=== PATIENT | male | born 1970 | race Caucasian/White ===

== ENCOUNTER 2018-08-01 13:24 | Inpatient (IN) ==
[2018-08-01] MEDS ORDERED: ceFAZolin 1 GM VIAL IV ONE (13:46)
--- NOTE | 2018-08-01 14:25 | Emergency Department Note ---
Recheck HPI - General Chief Complaint: Recheck/Abnormal Lab/Rx Stated Complaint: left hand wound, recheck Time Seen by Provider: 08/01/18 13:46 Source: patient Mode of arrival: ambulatory Limitations: no limitations - History of Present Illness HPI Narrative: 48-year-old male presents for recheck of left hand cellulitis and abscess. Onset over a week ago when a tree branch hit him. A friend made him come in yesterday because it was so swollen and red and he had been sleeping all the time and having chills. No nausea, vomiting, or diarrhea. Unknown fever. Does not believe he has had a fever. States the redness is about the same as yesterday. Is still swollen and very painful. Patient is extremely poor historian and appears to have some sort of developmental delay. Yesterday there was a woman who brought him in who voiced an understanding of his care and was going to help him get treatment and do what he needed to do. However today he arrives 5 hours later than he was supposed to. He states he went and picked up his medications but he never took any of his antibiotics yesterday because he just went home and went to sleep. States he does not have a ride or anyone to help him. He never warm pack the affected area or change the dressing as he was instructed to do so. - Related Data Home Medications Medication Instructions Recorded Confirmed Insulin Lispro [HumaLOG] 1 unit SQ DAILY 07/31/18 08/01/18 Previous Rx's Medication Instructions Recorded Cephalexin [Keflex] 500 mg PO QID #40 cap 07/31/18 HYDROcodone/APAP 5/325MG [[place] 1 tab PO Q4HP PRN #10 tab 07/31/18 5-325Mg] Allergies Allergy/AdvReac Type Severity Reaction Status Date / Time morphine Allergy Verified 08/01/18 13:26 Review of Systems All systems ED: reviewed and negative except as stated. Past Medical History - Past Medical History Medical history: Reports: DM (Type II not on insulin; with polyneuropathy.), other (Diabetic peripheral neuropathy. Peptic ulcer disease. Developmental Delay). 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 Right hand) - Social History smoking status: Current every day smoker Alcohol use: Reports: None (Sober 9 years.) Drug use: Reports: none. Denies: marijuana Physical Exam Limitations: no limitations General appearance: anxious, obese Head: atraumatic, normocephalic, normal inspection Eye: Present: normal appearance. Absent: conjunctival injection ENT: mucous membranes moist Chest: Present: symmetric chest wall rise Respiratory: Present: normal lung sounds bilaterally. Absent: respiratory distress, accessory muscle use Cardiovascular: Present: regular rate, normal heart sounds Extremities: Present: normal capillary refill. Absent: normal inspection (Left hand dorsal surface with diffuse edema covering the entire dorsal surface of her Adame carpals. There is a 5.5 cm abscess to the center is slightly boggy. Packing removed. Approximately 20 mils of purulent drainage expelled. Is able to slightly move fingers but is painful related to swelling.) Neurological: Present: alert Psychiatric: Present: anxious Skin: Present: warm, dry, intact, normal color Course Course Narrative: At [address] Schaefer who is on-call for hand surgery. He stated he would consult if needed but he agreed the patient should be admitted and given IV antibiotics and warm pack the affected area several times a day as well as dressing changes. Obviously the patient is unable to care for himself at home and this appears to be due to developmental delay delay and lack of resources but he has been noncompliant with outpatient therapy. Dr. Thao would like us to talk to the hospitalist transport conductor and he will consult if needed. @ [address] Butt who agreed to admit pt if Dr. Schaefer will consult. FIGUEROA is going to have a provider come see him and repack the abscess here in ER prior to his admit. Vital Signs Temperature 97.5 F 08/01/18 13:24 Pulse Rate 83 08/01/18 13:24 Respiratory Rate 18 08/01/18 13:24 Blood Pressure 173/87 08/01/18 13:24 Pulse Oximetry (%) 97 08/01/18 13:24 Temperature 97.5 F 08/01/18 13:24 Pulse Rate 83 08/01/18 13:24 Respiratory Rate 18 08/01/18 13:24 Blood Pressure 173/87 08/01/18 13:24 Pulse Oximetry (%) 97 08/01/18 13:24 Recheck/Abnormal Lab/Rx - Radiology Data Radiology results reviewed: Yes I reviewed the patient's radiology results. Disposition Pt seen by HEALTH SCIENCE SPECIALIST/PA only: Yes Clinical Impression: Abscess, Cellulitis, Non-compliance Disposition: Xfer As Inpt ([facility]) Condition: Fair Referrals: Roderick Santos MD [Primary Care Provider] - Bryson Schaefer MD [Physician] - Time of Disposition: 14:35
[2018-08-01] MEDS ORDERED: HYDROmorphone 2 MG/ML VIAL IV SCH (15:30)
--- NOTE | 2018-08-01 15:40 | Internal Med History&Physical ---
<Carlos Spear - Last Filed: 08/01/18 16:13> Medical - H&P: HPI Patient information: Note initiated : 08/01/18 at 3:36 pm Service Date, if different from initiated Date: [] Patient: Jordan Carpio 48 y/o M admitted on for left hand wound, recheck. Chief Complaint: [] Chief complaint: follow up of left hand laceration History of present illness: Mr. Carpio is a 48 year old M pt presents to the ED with swollen left hand and 10/10 pain for follow up. Pt originally came to the ED yesterday with same complaint and was seen by Annmarie. Pt says that he was loading up tree branches to take to the dump, and a branch cut him across the top of his left hand. Pain worsened and swelling increased over the past week until he eventually came to the ED. He states he was taking "12 pills of ibuprofen a day for the last 5 days". He was brought in to the ED by a female friend, where they drained a lot of purulent fluid and packed the wound. Wound was cultured and came back as staph, but sensitivities will not be available until tomorrow morning. The pt is a poor historian and didn't seem to understand the instructions to take car of his hand. His friend understood and said they would go get the abx's and follow up today the at 9am to have the wound looked at again. He came in today by himself 5 hours later that was told, had not taken his abx's and had not cared for his wound. Dr. Schaefer has been called as a consult and Efrain nino PA came to the ED and repacked his wound. - Constitutional Constitutional: Absent: chills, fever(s), headache(s), night sweats - EENT Eyes: Absent: change in vision (except when his sugars are poorly controlled) Nose, mouth and throat: Absent: neck pain - Cardiovascular Cardiovascular: Absent: chest pain, dyspnea, leg edema, palpatations, pedal edema - Respiratory Respiratory: Present: cough (for the last week). Absent: hemoptysis, excessive phlegm production - Gastrointestinal Gastrointestinal: Absent: change in bowel habits, change in stool character, diarrhea, nausea, vomiting - Genitourinary Genitourinary: Absent: change in urinary stream, urinary hesitancy, urinary urgency - Musculoskeletal Musculoskeletal: Absent: arthralgias, myalgias - Integumentary Integumentary: Present: skin ulcer (dorsal surface of left hand) - Neurological Neurological: Present: paresthesias (toes feel numb). 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 Social history: Pt smokes a few cigarettes every other day for the last 4 years Smoking status: Current some day smoker Have you smoked in the last 12 months: Yes Drug use: other (did meth a week ago and has only done it a few times ever) Alcohol use: sober (for the last 9 years) Medical - H&P: Meds Home Medications Medication Instructions Recorded Confirmed Type Cephalexin [Keflex] 500 mg PO QID #40 cap 07/31/18 08/01/18 Rx HYDROcodone/APAP 5/325MG [[place] 1 tab PO Q4HP PRN #10 tab 07/31/18 08/01/18 Rx 5-325Mg] Insulin Lispro [HumaLOG] 1 unit SQ DAILY 07/31/18 08/01/18 History Insulin Glargine, Human [Lantus] 35 unit SQ DAILY 08/01/18 08/01/18 History Insulin Glargine, Human [Lantus] 45 unit SQ HS 08/01/18 08/01/18 History Allergies Allergy/AdvReac Type Severity Reaction Status Date / Time morphine Allergy Nausea Verified 08/01/18 15:55 Medical - H&P: Exam - Constitutional Vitals: Temp Pulse Resp BP Pulse Ox 97.5 F 83 18 173/87 97 08/01/18 13:24 08/01/18 13:24 08/01/18 13:24 08/01/18 13:24 08/01/18 13:24 General appearance: obese - Eye Eye exam: Present: EOMI, normal appearance, PERRL - Neck Neck exam: Present: tenderness (didn't notice neck pain until asked about it. Hurts to touch chin to chest) - Expanded Neck Exam Neck exam: Absent: carotid bruit - Respiratory Respiratory exam: Present: rhonchi (faint in RLL). Absent: chest wall tenderness, rales, wheezes - Cardiovascular Cardiovascular exam: Present: normal rate and rhythm, RRR. Absent: gallop, rubs , systolic murmur - GI/Abdominal GI/Abdominal exam: Present: normal bowel sounds, soft. Absent: guarding, rebound, tenderness - Expanded GI/Abdominal Exam GI/Abdominal exam: Absent: Butcher's sign - Extremities Exam Extremities exam: Absent: pedal edema - Neurological Exam Neurological exam: Present: alert, oriented X3 - Expanded Neurological Exam Sensory exam: lower extremity light touch: Abnormal Left, lower extremity pin prick: Abnormal Left - Skin Skin exam: Present: erythema (large swollen erythematous area taking up the majority of the back of the left hand) Medical - H&P: Reslt - Labs CBC & Chem 7: 08/01/18 14:15 08/01/18 14:15 Medical - H&P: A/P (1) Abscess Current visit: Yes Status: Acute Pt will be admitted and administered IV cefazolin d/t poor adherence to wound care instructions. Change to vanco if BC's come pack MRSA +. Dr. Schaefer is being consulted for further treatments if necessary. (2) Cellulitis Current visit: Yes Status: Acute IV abx's (3) Diabetes mellitus type 2, uncontrolled, with complications Current visit: No Status: Chronic Pt will be given his insulin while in hospital to manage sugars. <Zeinab Butt R - Last Filed: 08/02/18 07:03> Medical - H&P: HPI Patient information: Note initiated : 08/02/18 at 7:02 am Service Date, if different from initiated Date: [] Patient: Jordan Carpio 48 y/o M admitted on 08/01/18 for left hand wound, recheck. Chief Complaint: [] History of present illness: Mr. Carpio is a 48 year old M Medical - H&P: Exam - Constitutional Vitals: Temp Pulse Resp BP Pulse Ox 98.5 F 77 18 150/85 96 08/02/18 04:00 08/02/18 04:00 08/02/18 04:00 08/02/18 04:00 08/02/18 04:00 Medical - H&P: Reslt - Labs CBC & Chem 7: 08/01/18 14:15 08/01/18 14:15 Labs: Short CBC 08/01/18 Range/Units 14:15 WBC 10.1 (4.5-11.0) K/mcL Hgb 13.5 (13.5-16.5) g/dL Hct 39.3 L (41.0-55.0) % Plt Count 431 (140-440) K/mcL BMP 08/01/18 14:15 Sodium 135 Potassium 4.6 Chloride 98 Carbon Dioxide 23 BUN 12 Creatinine 0.7 Glucose 276 H Calcium 8.5 L Liver Function 08/01/18 Range/Units 14:15 Total Bilirubin < 0.2 (0.0-1.0) mg/dL AST 17 (0-37) U/l ALT 13 (0-40) U/l Alkaline Phosphatase 86 (39-117) U/L Albumin 2.9 L (3.2-5.2) gm/dL Medical - H&P: A/P - Narrative A/P Narrative: SEE SEPARATE H/P by MYSELF
[2018-08-01 15:53] LABS: ALT/SGPT 13 U/l (0-40); Albumin 2.9 gm/dL (3.2-5.2); Albumin/Globulin Ratio 0.8 (1.0-2.3); Alkaline Phosphatase 86 U/L (39-117); Basophils # (Auto) 0.2 K/mcL (0.0-0.3); Basophils % (Auto) 2.1 % (0.0-2.0); Blood Urea Nitrogen 12 mg/dl (6-20); Eosinophils # (Auto) 0.2 K/mcL (0.0-0.7); Eosinophils % (Auto) 1.9 % (0.0-7.0); Granulocytes % (Auto) 61.3 % (38.0-78.0); Lymphocytes # (Auto) 3.1 K/mcL (1.5-4.8); Lymphocytes % (Auto) 30.4 % (15.5-49.0); Mean Cell Volume 83.6 fL (80.0-100.0); Mean Corpuscular HGB Conc 34.4 g/dL (31.0-36.0); Mean Corpuscular Hemoglobin 28.7 pg (26.0-34.0); Monocytes # (Auto) 0.4 K/mcL (0.1-0.9); Monocytes % (Auto) 4.3 % (1.0-12.0); Platelet Count 431 K/mcL (140-440); Red Cell Distribution Width 12.8 % (11.5-14.5)
--- NOTE | 2018-08-01 16:06 | Internal Med History&Physical ---
Medical - H&P: HPI Patient information: Note initiated : 08/01/18 at 3:59 pm Service Date, if different from initiated Date: [] Patient: Jordan Carpio 48 y/o M admitted on for left hand wound, recheck. Chief Complaint: [] History of present illness: Mr. Carpio is a 48 year old M with h/o DM, substance abuse, presents to the ER today for evaluation of his hand. The patient was drowsy on my evaluation, had just received Dilaudid. Most of the history from patient and some from chart review. The patient apparently has history of diabetes, injured his hand a few days ago. He presented yesterday to the emergency room with swelling on his left hand, x-ray done yesterday showed that the patient had significant cellulitis. Abscess on the hand was drained, culture sent, patient was sent home with antibiotics. The patient's caregiver [lady accompanied the patient] vouched to take care of the patient and verbalized understanding of the need for follow-up. On talking with the patient he went home was drowsy and went to sleep. He showed up late for his follow-up appointment today he had not taken his oral antibiotics. He admits to having some chills, but denies any fever. Has some dizziness and a chronic cough. The patient denies any other acute complaints. The most significant symptom he has is pain in the hand. In the emergency room patient is afebrile, hemodynamically stable a bit drowsy after Dilaudid. Labs are pending but labs done yesterday reviewed. It is my understanding that Dr. Hutchison and orthopedic team is going to follow this patient as the patient is being admitted to the hospital on their recommendation. T All systems: reviewed and no additional remarkable complaints except as stated ( as per hpi rest neg) Medical - H&P: PMH Medical history: DM obesity Family history: reviewed and not pertinent Social history: smoker etoh ex, meth user Medical - H&P: Meds Home Medications Medication Instructions Recorded Confirmed Type Cephalexin [Keflex] 500 mg PO QID #40 cap 07/31/18 08/01/18 Rx HYDROcodone/APAP 5/325MG [[place] 1 tab PO Q4HP PRN #10 tab 07/31/18 08/01/18 Rx 5-325Mg] Insulin Lispro [HumaLOG] 1 unit SQ DAILY 07/31/18 08/01/18 History Allergies Allergy/AdvReac Type Severity Reaction Status Date / Time morphine Allergy Nausea Verified 08/01/18 15:55 Medical - H&P: Exam - Constitutional Vitals: Temp Pulse Resp BP Pulse Ox 97.5 F 83 18 173/87 97 08/01/18 13:24 08/01/18 13:24 08/01/18 13:24 08/01/18 13:24 08/01/18 13:24 General appearance: obese Exam: GENERAL: The patient is a well-developed, well-nourished in no apparent distress. Is drowsy but oriented x3. obese VITAL SIGNS: Reviewed and as noted elsewhere. HEENT: Head is normocephalic and atraumatic. Extraocular muscles are intact. Pupils are equal, round, and reactive to light. Nares appeared normal. Mouth appears any without lesions. Mucous membranes are moist. NECK: Normal to inspection, Supple, No lymphadenopathy or thyromegaly. LUNGS: Air entry equal on both sides, no wheezing, crackles or rhonchi noted. No accessory muscles of respiration HEART: Regular rate and rhythm normal, S1 and S2 heard, no Gallop, S3 or Rub Noted, No Gross murmur heard. ABDOMEN: Soft, nontender, and nondistended. Positive bowel sounds. No hepatosplenomegaly was noted. EXTREMITIES: No cyanosis, clubbing, rash, lesions or edema. left hand in dressing. NEUROLOGIC: Cranial nerves II through XII are grossly intact. Motor and Sensory System Grossly Intact PSYCHIATRIC: Normal affect, Normal Mood. Appropriate Behavior. SKIN: No ulceration or wounds noted, No jaundice, No rash noted. Medical - H&P: Reslt - Labs CBC & Chem 7: 08/01/18 14:15 08/01/18 14:15 Labs: Short CBC 08/01/18 Range/Units 14:15 WBC 10.1 (4.5-11.0) K/mcL Hgb 13.5 (13.5-16.5) g/dL Hct 39.3 L (41.0-55.0) % Plt Count 431 (140-440) K/mcL BMP 08/01/18 14:15 Sodium 135 Potassium 4.6 Chloride 98 Carbon Dioxide 23 BUN 12 Creatinine 0.7 Glucose 276 H Calcium 8.5 L Liver Function 08/01/18 Range/Units 14:15 Total Bilirubin < 0.2 (0.0-1.0) mg/dL AST 17 (0-37) U/l ALT 13 (0-40) U/l Alkaline Phosphatase 86 (39-117) U/L Albumin 2.9 L (3.2-5.2) gm/dL Medical - H&P: A/P - Narrative A/P Narrative: A/P Cellulitis of Hand- Failed outpatient treatment due to non compliance, staph in wound culture, will start on IV anceph and IV vanco till cultures are back, switch to orals as soon as possible. Ortho following, ?hand surgery DM- Uncontrolled, start on insulin for now, follow up as outpatient Substance abuse- check utox DVT hep sq Pain control- Oral oxycodone, tylenol and ibuprofen for now FUll code Diabetic Diet.
--- NOTE | 2018-08-01 16:13 | Consultation ---
DATE OF CONSULTATION: 08/01/2018 PRESENTING DIAGNOSIS: Left hand recheck of wound with progressive cellulitis and abscess. HISTORY OF PRESENT ILLNESS: This patient nearly a week ago was hit by a tree branch that caused a dorsal puncture wound of the left hand that has persisted to become infected, developing a cellulitis of which he has been treated in the ED for previously with cephalexin. He was instructed to pack this and to use warm compresses. However, he does have a slight developmental delay and has been noncompliant to the recommendations and presents back to the emergency department for similar complaints including pain, drainage, and increased redness and swelling over the left dorsum of the hand. The patient's current vital signs are he is afebrile at 97.5, pulse is 83, respirations 18, blood pressure 173/87, pulse ox 97% on room air. PAST MEDICAL HISTORY: Remarkable for diabetes. He is a type 2 diabetic with polyneuropathy, not on insulin. He has PUD, slight developmental delay. REVIEW OF SYSTEMS: Denies headaches, fever, sweats, chills, chest pain, syncope, shortness of breath, abdominal pain, nausea, vomiting, and diarrhea. SOCIAL HISTORY: He is a current smoker every day. He denies alcohol use. States he has been sober for 9 years. The patient does have a drug-seeking behavior in the ED the and has presented to the ED several times requesting pain medication; however, he denies other illicit drugs, including marijuana. PHYSICAL EXAMINATION: VITAL SIGNS: As previously mentioned. GENERAL: The patient is awake, alert, oriented x3 but pretty frustrated with the pain he is experiencing in his hand. He reports this pain as 10/10. HEAD: Normocephalic. CHEST: Clear to auscultation. No wheezing, rhonchi or rales. CARDIOVASCULAR: Normal sinus rhythm. No gallops, rubs or murmurs. ABDOMEN: Soft, nontender. EXTREMITIES: The left dorsum of the hand reveals a large swollen hand, 2 to 3+ in swelling and edema with a demarcated erythematous line which has been circumscribed with a permanent marker and dated previously. There is a 5.5 cm abscess with a central opening where there has previously been packing placed. There is a large scab on the surface of the skin measuring about 2.5 cm in an annular fashion. There has been a large copious amount of purulent drainage removed from the wound. SKIN: Otherwise warm, dry, and he has brisk capillary refill throughout his digits. MEDICAL DECISION MAKING: Dr. Schaefer has been consulted previously. He was the on-call hand orthopedic surgeon who spoke with the ED staff and the hospitalist, Dr. Butt, who agreed to admit the patient if we would provide a consultation for this patient and a localized wound packing. PROCEDURAL NOTE: After informed consent under sterile technique, a sterile tray was opened and 1/4-inch iodoform gauze ribbon was sterilely packed firmly into the wound. Approximately 24 inches of this packing material was packed. The patient was very uncomfortable during the procedure, as expected, but did tolerate it. He was to the point where he was writhing in pain. Towards the end of the packing, we did order a 1 mg Dilaudid dose to be given to him IV. ASSESSMENT: Left hand persistent cellulitis, abscess following puncture wound. TREATMENT PLAN: The patient is to be admitted under Hospitalist who will begin IV antibiotic therapy and will contact Dr. Schaefer with updates in regards to any further surgical intervention that may be required. BAP:song Job ID: [id number] Doc ID: [id number] Mark Busch PA-C
[2018-08-01] MEDS ORDERED: DEXTROSE 31 GM ORAL.SUSP PO PRN (16:38)
[2018-08-01] MEDS ORDERED: DEXTROSE 50% 50 ML VIAL IV PRN (16:38)
[2018-08-01] MEDS ORDERED: ONDANSETRON 4 MG/2 ML VIAL IV PRN (16:38)
[2018-08-01] MEDS ORDERED: VANCOMYCIN PER PHARMACY IV SCH (16:38)
[2018-08-01] MEDS: INSULIN LISPRO 1 UNIT/0.01 ML UNIT SQ SCH ×2 (16:46→20:21)
[2018-08-01] MEDS: VANCOMYCIN 1,500 MG in 0.9 % SODIUM CHLORIDE 500 ML IV SCH (18:44)
[2018-08-01] MEDS: oxyCODONE HCL 5 MG TABLET PO PRN ×2 (20:07→23:57)
[2018-08-01] MEDS: HEPARIN 5,000 UNIT/ML VIAL SQ SCH (20:20)
[2018-08-01] MEDS: INSULIN GLARGINE, HUMAN 1 UNIT/0.01 ML SQ SCH (20:21)
[2018-08-01] MEDS: 0.9 % SODIUM CHLORIDE 10 ML SYRINGE IV SCH (20:24)
[2018-08-01] MEDS: ACETAMINOPHEN 325 MG TABLET PO PRN (22:48)
[2018-08-02] MEDS: oxyCODONE HCL 5 MG TABLET PO PRN (04:50)
[2018-08-02] MEDS: ACETAMINOPHEN 325 MG TABLET PO PRN ×2 (04:51→18:10)
[2018-08-02] MEDS: 0.9 % SODIUM CHLORIDE 10 ML SYRINGE IV SCH ×3 (04:51→21:11)
[2018-08-02 05:46] LABS: Amphetamine Screen,Urine SUSPECT POSITIVE (NONDETECTED); Benzodiazepines Screen,Urine NONE DETECTED (NONDETECTED); Cocaine Screen,Urine NONE DETECTED (NONDETECTED); Opiate Screen,Urine NONE DETECTED (NONDETECTED); Oxycodone, Urine Screen SUSPECT POSITIVE (NONDETECTED)
[2018-08-02] MEDS: VANCOMYCIN 1,500 MG in 0.9 % SODIUM CHLORIDE 500 ML IV SCH ×2 (07:14→21:06)
[2018-08-02] MEDS: INSULIN LISPRO 1 UNIT/0.01 ML UNIT SQ SCH ×4 (07:15→21:09)
[2018-08-02] MEDS: IBUPROFEN 600 MG TABLET PO PRN ×2 (07:16→19:11)
[2018-08-02] MEDS: INSULIN GLARGINE, HUMAN 1 UNIT/0.01 ML SQ SCH ×2 (09:30→21:10)
[2018-08-02] MEDS: HEPARIN 5,000 UNIT/ML VIAL SQ SCH ×2 (09:31→21:09)
--- NOTE | 2018-08-02 15:35 | Internal Med Progress Note ---
Medical - PN: Subj Patient information: Note initiated : 08/02/18 at 3:33 pm Service Date, if different from initiated Date: [] Patient: Jordan Carpio a 48 y/o M admitted on 08/01/18 for Left Hand Wound, Recheck/Abscess, Cellulitis. Chief Complaint: [] Interval history: Mr. Carpio is a 48 year old M with h/o DM, substance abuse, presents to the ER today for evaluation of his hand. The patient was drowsy on my evaluation, had just received Dilaudid. Most of the history from patient and some from chart review. The patient apparently has history of diabetes, injured his hand a few days ago. He presented yesterday to the emergency room with swelling on his left hand, x-ray done yesterday showed that the patient had significant cellulitis. Abscess on the hand was drained, culture sent, patient was sent home with antibiotics. The patient's caregiver [lady accompanied the patient] vouched to take care of the patient and verbalized understanding of the need for follow-up. On talking with the patient he went home was drowsy and went to sleep. He showed up late for his follow-up appointment today he had not taken his oral antibiotics. He admits to having some chills, but denies any fever. Has some dizziness and a chronic cough. The patient denies any other acute complaints. The most significant symptom he has is pain in the hand. In the emergency room patient is afebrile, hemodynamically stable a bit drowsy after Dilaudid. Labs are pending but labs done yesterday reviewed. It is my understanding that Dr. Hutchison and orthopedic team is going to follow this patient as the patient is being admitted to the hospital on their recommendation. T 08/02 Patient seen and examined, still has some soreness in his hand but no complaints. Glucose level is better still above target increase Lantus dose to 25 units twice daily. Pain control reasonable with ordered Tylenol and Motrin and as needed oxycodone. Dr. Ashby yet to evaluate, awaiting his evaluation. He will decide on the disposition of the patient Pertinent ROS: Denies headache, dizziness Denies chest pain, palpitations Denies cough or shortness of breath Denies abdominal pain, nausea or vomiting. - Constitutional Vitals: Vital Signs Temp Pulse Resp BP Pulse Ox 97.6 F 70 18 145/75 96 08/02/18 11:34 08/02/18 11:34 08/02/18 11:34 08/02/18 11:34 08/02/18 11:34 Period Temp Pulse Resp BP Sys/Castro Pulse Ox Last 24 Hr 97.4 F-99.6 F 60-98 18-20 126-150/72-86 94-97 Intake and Output 08/02/18 08/02/18 08/02/18 05:59 13:59 21:59 Intake Total 690 / 690 240 / 240 Output Total 625 / 625 Balance 65 / 65 240 / 240 Weight 250 lb Patient Weight 08/03/18 05:59 Weight 250 lb Intake & Output: Intake & Output 08/02/18 08/02/18 08/02/18 05:59 13:59 21:59 Intake Total 690 / 690 240 / 240 Output Total 625 / 625 Balance 65 / 65 240 / 240 Weight 250 lb Intake: Oral 690 / 690 240 / 240 Output: Void Amount 625 / 625 Other: Meal crackers Breakfast Percent of Meal Consumed 100% 100% Feeding Ability Independent Urine Appearance Clear Urine Color Dark Yellow Urine Odor Strong Exam: Constitutional; Afebrile, cooperative, alert, not in distress. Eyes- No icterus, , No periorbital swelling Ears- Ext ear normal, hearing normal to conversation. Neck- Midline trachea, supple Respiratory system: Air Entry equal on both sides, No crackles or wheezing, no rhonchi. CVS- Rate rhythm regular, S1,S2 heard, no gallop, no rub. 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 hand in dressing placed by ortho in ER Medical - PN: Obj Da - Labs CBC & Chem 7: 08/01/18 14:15 08/01/18 14:15 Labs: Abnormal Lab Results 08/01/18 08/01/18 08/01/18 23:30 14:15 14:15 Hct 39.3 L Baso % (Auto) 2.1 H Glucose 276 H Calcium 8.5 L Albumin 2.9 L Albumin/Globulin Ratio 0.8 L Ur Oxycodone Screen Suspect positive A Ur Amphetamines Screen Suspect positive A Meds: Medications Acetaminophen (Tylenol) 650 mg PO Q6HP PRN PRN Reason: PAIN/FEVER > 101 Last Admin: 08/02/18 04:51 Dose: 650 mg Dextrose (Dextrose 50%) 0 ml IV UD PRN PRN Reason: Hypoglycemia Diagnostic Test (Pha) (Accu-Chek) 1 each FS [facility] Last Admin: 08/02/18 12:24 Dose: 1 each Glucose (Insta-Glucose) 15 gm PO PRN PRN PRN Reason: Hypoglycemia Heparin Sodium (Porcine) (Heparin) 5,000 unit SQ Q12 [facility] Last Admin: 08/02/18 09:31 Dose: 5,000 unit Vancomycin HCl 1,500 mg/ (Sodium Chloride) 500 mls @ 333.3 mls/hr IV Q12H [facility] Last Admin: 08/02/18 07:14 Dose: 333.3 mls/hr Ibuprofen (Motrin) 600 mg PO QIDP PRN PRN Reason: PAIN/FEVER > 101 Last Admin: 08/02/18 07:16 Dose: 600 mg Insulin Glargine (Lantus) 20 unit SQ BID [facility] Last Admin: 08/02/18 09:30 Dose: 20 unit Insulin Human Lispro (Humalog) 0 unit SQ [facility]; Protocol Last Admin: 08/02/18 12:23 Dose: 4 unit Ondansetron HCl (Zofran) 4 mg IV Q6HP PRN PRN Reason: Nausea And Vomiting Oxycodone HCl (Roxicodone) 5 mg PO Q4HP PRN PRN Reason: Severe Pain Last Admin: 08/02/18 04:50 Dose: 5 mg Sodium Chloride (Saline Flush) 10 ml IV Q8 [facility] Last Admin: 08/02/18 04:51 Dose: 10 ml Vancomycin HCl (Vancomycin Per Pharmacy) 1 order IV [facility] Medical - PN: A/P - Time Spent With Patient Total time spent is greater than 50% in coordination of care (as documented) at patient's floor/unit and/or counseling patient: - Narrative A/P Narrative: A/P Cellulitis of Hand- IV vanco for now as per ortho recommendations, will switch to oral bactrim at discharge. no sepsis, awaiting evaluation from ortho. DM- Uncontrolled, lantus 25 bid for now ssi insulni Substance abuse- amphetamine positive DVT hep sq Pain control- Oral oxycodone, tylenol and ibuprofen for now FUll code Diabetic Diet. Medical - PN: Qual - VTE Deep Vein Thrombosis/Pulmonary Embolism Present on Admission: No
[2018-08-03] MEDS: ACETAMINOPHEN 325 MG TABLET PO PRN ×3 (00:15→06:47)
[2018-08-03] MEDS: IBUPROFEN 600 MG TABLET PO PRN ×2 (03:06→08:55)
[2018-08-03] MEDS: 0.9 % SODIUM CHLORIDE 10 ML SYRINGE IV SCH (05:33)
[2018-08-03] MEDS: INSULIN LISPRO 1 UNIT/0.01 ML UNIT SQ SCH ×2 (06:50→12:10)
[2018-08-03] MEDS: HEPARIN 5,000 UNIT/ML VIAL SQ SCH (08:54)
[2018-08-03] MEDS: INSULIN GLARGINE, HUMAN 1 UNIT/0.01 ML SQ SCH (08:55)
[2018-08-03] MEDS: VANCOMYCIN 1,500 MG in 0.9 % SODIUM CHLORIDE 500 ML IV SCH (09:47)
--- NOTE | 2018-08-03 11:45 | Discharge Summary ---
Medical - DS: Prov Patient information: Note initiated : 08/03/18 at 11:42 am Service Date, if different from initiated Date: [] Patient: Jordan Carpio 48 y/o M admitted on 08/01/18 for Left Hand Wound, Recheck/Abscess, Cellulitis. Chief Complaint: [] Date of admission: 08/01/18 16:28 Discharge date: 08/03/18 Primary care physician: Roderick Santos Consults: 08/01/18 14:21 Consult to Physician [CONS] Stat Comment: Consulting Provider: Bryson Schaefer Reason For Exam: Physician to Consult 08/01/18 14:30 Consult to Physician [CONS] Stat Comment: Consulting Provider: Zeinab Butt Reason For Exam: Physician to Consult Discharging clinician: Zeinab Butt Medical - DS: Meds - Discharge Medications Prescriptions: Linezolid 600 mg PO BID #20 tab Active and Home Medications: Home Medications Cephalexin [Keflex] 500 mg PO QID #40 cap 07/31/18 [Rx Confirmed 08/01/18 Last Taken Unknown] HYDROcodone/APAP 5/325MG [[place] 5-325Mg] 1 tab PO Q4HP PRN #10 tab 07/31/18 [Rx Confirmed 08/01/18 Last Taken Unknown] Insulin Lispro [HumaLOG] 1 unit SQ DAILY 07/31/18 [History Confirmed 08/01/18 Last Taken Unknown] Insulin Glargine, Human [Lantus] 35 unit SQ DAILY 08/01/18 [History Confirmed Last Taken 07/29/18] Insulin Glargine, Human [Lantus] 45 unit SQ HS 08/01/18 [History Confirmed 08/01 Last Taken 07/29/18] Medical - DS: Hosp Hospital course: Mr. Carpio is a 48 year old M with h/o DM, substance abuse, presents to the ER today for evaluation of his hand. The patient was drowsy on my evaluation, had just received Dilaudid. Most of the history from patient and some from chart review. The patient apparently has history of diabetes, injured his hand a few days ago. He presented yesterday to the emergency room with swelling on his left hand, x-ray done yesterday showed that the patient had significant cellulitis. Abscess on the hand was drained, culture sent, patient was sent home with antibiotics. The patient's caregiver [lady accompanied the patient] vouched to take care of the patient and verbalized understanding of the need for follow-up. On talking with the patient he went home was drowsy and went to sleep. He showed up late for his follow-up appointment today he had not taken his oral antibiotics. He admits to having some chills, but denies any fever. Has some dizziness and a chronic cough. The patient denies any other acute complaints. The most significant symptom he has is pain in the hand. In the emergency room patient is afebrile, hemodynamically stable a bit drowsy after Dilaudid. Labs are pending but labs done yesterday reviewed. It is my understanding that Dr. Ferrara and orthopedic team is going to follow this patient as the patient is being admitted to the hospital on their recommendation. Cellulitis/Abscess of hand- S/p Drainage, no e/o sepsis, localized soft tissue infection, IV vancomycin used responded well, wound culture is growing mrsa. Patient to be discharged on oral linezolid. Case seen by Dr Ferrara, advised wound care help. Wound care did consult with the patient advised dressing changes three times a week. The patient does not qualify for SNF placement, but can come to the hospital for dressing changes. patient is being given help with transportation so that then can come to the dressing change appointments as outpatient. He will follow up with Dr Ferrara in 1 week and Wound are clinic in 2 weeks. The rest of the stay in the hospital is unremarkable, Patient and family has been updated no the plan of care. Discharge diagnosis: Cellulitis/Abscess of hand - Time Spent with Patient Total time spent providing and/or coordinating discharge services: Greater than 30 minutes Medical - DS: Exam - Constitutional Vitals: Vital Signs Temp Pulse Resp BP BP Pulse Ox 08/03/18 08:00 96.8 F L 16 126/68 93 08/03/18 04:00 97.5 F 75 20 120/70 96 08/03/18 00:00 98.5 F 78 18 156/92 94 08/02/18 20:00 98.7 F 88 20 147/83 93 08/02/18 16:00 97.4 F 65 16 152/83 97 Intake and Output 08/02/18 08/03/18 08/03/18 21:59 05:59 13:59 Intake Total 640 / 640 1050 / 1050 200 / 200 Output Total 475 / 475 650 / 650 Balance 165 / 165 400 / 400 200 / 200 Intake: IV 500 / 500 Vancomycin 1,500 mg In Sodium 500 / 500 Chloride 0.9% 500 ml @ 333.3 mls/hr IV Q12H [facility] Rx#: [id number] Oral 640 / 640 550 / 550 200 / 200 Output: Void Amount 475 / 475 650 / 650 # of times incontinent of urine 0 / 0 Other: Meal sandwich & crackers crackers Breakfast Percent of Meal Consumed 100% 100% 50% Feeding Ability Independent Independent Independent Urine Appearance Clear Clear Urine Color Light Catarina Dark Yellow Urine Odor Normal # Voids 2 Weight 254 lb Additional comments: Constitutional; Afebrile, cooperative, alert, not in distress. Eyes- No icterus, , No periorbital swelling Ears- Ext ear normal, hearing normal to conversation. Neck- Midline trachea, supple Respiratory system: Air Entry equal on both sides, No crackles or wheezing, no rhonchi. CVS- Rate rhythm regular, S1,S2 heard, no gallop, no rub. 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 Medical - DS: Data Labs on day of discharge: Labs from last 24 hours 08/03/18 08:16 Vancomycin Trough 11.3 Preliminary micro results at discharge 08/01/18 15:40 Blood Culture - Preliminary Blood 08/01/18 15:35 Blood Culture - Preliminary Blood Medical - DS: A/P - Patient/Caregiver Discharge Instructions Activity: increase activity as tolerated Diet: Consistent Carbohydrate Additional Instructions: Please take linezolid 600mg twice daily for 10 days [facility] come to the [facility] three times a week, Monday, Monday and Monday for dressing changes. Follow up with Wound care clinic, Ms Bowden for evaluation in 1-2 weeks Follow up with Dr Ferrara in 1 week Go to the ER for worsening symptoms, redness, fever chills or any other acute concern. It is very important that you follow up with your dressing changes and take your prescribed antibiotics as not being compliant on your part would lead to loss of limb, and spread of infection. - Follow up Plan Follow up with: Bryson Schaefer MD [Physician] - Roderick Santos MD [Primary Care Provider] - Violeta Bowden ARNP [Nurse Practitioner] - Disposition: Home, Self-Care Prognosis: Fair Rehab Potential: Fair I certify that the patient requires SNF services: No Overall status at discharge: patient is progressing back to baseline Medical - DS: Qual - VTE Deep Vein Thrombosis/Pulmonary Embolism Present on Admission: No
== END 2018-08-03 15:10 | disposition home or self-care (01) | DRG 603 ==
LOC: ED 13:24 → MEDSUR 16:15
PROVIDERS: ADMIT Internal Medicine; ATTEND Internal Medicine
CPT/HCPCS: 87149; 99223; A6199; J0690; J1170; J1644; J1815; J1817; J3370; J7040

== ENCOUNTER 2021-03-14 22:23 | Inpatient (IN) ==
[2021-03-14] MEDS ORDERED: VANCOMYCIN 1,500 MG in 0.9 % SODIUM CHLORIDE 500 ML IV ONE (22:38)
[2021-03-14] MEDS ORDERED: PIPERACILLIN SODIUM/TAZOBACTAM 4.5 GM in DEXTROSE 5% IN WATER 50 ML IV ONE (22:38)
--- NOTE | 2021-03-14 22:44 | Emergency Department Note ---
HPI General Chief complaint: Extremity Injury, Lower Stated complaint: lt hip contusion Time Seen by Provider: 03/14/21 22:31 Source: patient Mode of arrival: wheelchair Limitations: no limitations History of Present Illness HPI Narrative: Narrative: Presents to room T1 for evaluation of left lower extremity pain. The patient reports that he fell approximately 5 days ago and now has pain and swelling. This appears to be more consistent with subcutaneous abscess formation which are now enlarged and draining. The patient denies any fevers. The patient does have diabetes. He denies any distal numbness or tin gling. Review the patient's medical record notes that he did have similar poorly healing wounds on the medial aspect of the leg but these wounds on the lateral aspect tonight are new. Related Data Home Medications Medication Instructions Recorded Confirmed insulin lispro [Humalog U-100 1 unit SQ DAILY 07/31/18 08/08/20 Insulin] Lantus U-100 Insulin 30 unit SQ DAILY 08/01/18 08/08/20 Lantus U-100 Insulin 45 unit SQ HS 08/01/18 07/18/20 gabapentin 100 mg PO TID 08/08/20 08/08/20 liraglutide [Victoza 2-Joseph] 0.6 mg SUBCUT DAILY 08/08/20 08/09/20 ibuprofen 03/14/21 Previous Rx's Medication Instructions Recorded linezolid 600 mg PO BID #20 tab 08/03/18 Allergies Allergy/AdvReac Type Severity Reaction Status Date / Time morphine Allergy Nausea Verified 03/14/21 22:29 Review of Systems ROS ROS Narrative: Narrative: All systems ED: reviewed and negative except as stated. [facility] Narrative Patient History Narrative: Narrative: Medical/Surgical/Family History All Active Problems (Updated 03/15/21 @ 00:42 by Cole Kirkpatrick MD) Eyebrow laceration (Acute) Contusion of periorbital region, left (Acute) Finger laceration (Acute) Cellulitis of left leg (Acute) Abscess of left leg (Acute) Diabetes mellitus out of control (Acute) Obesity due to excess calories (Chronic) Chronic, continuous use of opioids (Chronic) Laceration of index finger of right hand without complication (Acute) Hyperglycemia (Acute) Sciatica, right side (Acute) Diabetes mellitus type 2, uncontrolled, with complications (Chronic) Lumbar radiculopathy (Acute) Lumbosacral disc disease (Acute) Non-compliance (Acute) Medical History (Updated 03/15/21 @ 00:42 by Cole Kirkpatrick MD) Abscess Abscess of left hand Abscess of skin or subcutaneous tissue Abscess, hand Cellulitis Chronic, continuous use of opioids Actually has been off for a number of weeks due to not being able to meet his new doctor; previously see on 10 mg of hydrocodone 3 times daily. This for sciatica/low back pain. (07/18/2020) Dehydration Dental abscess Laceration of index finger of right hand without complication Lumbar radiculopathy, acute Obesity due to excess calories BMI 36.9 (07/18/2020) Social History Smoking Status: Current some day smoker Alcohol Intake Frequency: does not drink (Quit 2007) Substance Use: does not use Exam Narrative Narrative: Narrative: General Limitations: no limitations General appearance: Present alert and in no apparent distress Head Head: Present atraumatic, normocephalic and normal inspection Eye Eye: Present normal appearance and EOMI; Absent conjunctival injection ENT ENT: Present normal exam and mucous membranes moist Neck Neck: Present normal inspection and trachea midline Respiratory Respiratory: Present normal lung sounds bilaterally; Absent respiratory distress Cardiovascular Cardiovascular: Present regular rate, normal rhythm and normal heart sounds Adbominal Abdominal: Present soft; Absent distention, tenderness, guarding and rebound Extremities Extremities: Present normal inspection; Absent tenderness Back Back: Present normal inspection; Absent tenderness Neurological Neurological: Present alert, oriented X3 and CN II-XII intact; Absent motor sensory deficit Psychiatric Psychiatric: Present normal affect and normal mood Skin Skin: Present warm (WNL), dry, rash, erythema and other (There are 2 large areas of induration swelling with central necrosis and draining purulent material. The first is noted to be proximal and more anterior on the thigh near the inguinal region. The second wound which is larger tends to be more lateral in the midportion of the thigh.) Course Vital Signs Vital signs: Vital Signs Temperature 99.9 F H 03/14/21 22:25 Pulse Rate 89 03/14/21 22:25 Respiratory Rate 22 03/14/21 22:25 Blood Pressure 124/64 03/14/21 22:25 Pulse Oximetry (%) 97 03/14/21 22:25 Temperature 99.9 F H 03/14/21 22:25 Pulse Rate 85 03/14/21 23:45 Respiratory Rate 22 03/14/21 22:25 Blood Pressure 126/55 03/14/21 23:45 Pulse Oximetry (%) 95 03/14/21 23:45 MDM MDM Narrative Medical decision making narrative: Narrative: The patient presents for evaluation of left lower extremity pain and swelling. The patient has a history of previous subcutaneous abscesses in the leg. Previously these were on the medial aspect. Now the patient has 2 distinct areas of abscess on the outer portion of the left lower extremity. He denies any fevers but is having significant discomfort. The patient's labs show an elevated white blood cell count at 12.3. Lactic acid level is normal. The patient's renal function is normal. Blood sugar is elevated at 312. X-ray of the left lower extremity shows no evidence of gas in the tissue. The patient was treated with IV antibiotics after blood cultures. I discussed the case with the on-call surgeon, Dr. Oleary. He agrees to consult. Also discussed the case with the admitting hospitalist. Medical Records Medical records reviewed: Yes I reviewed the patient's medical records. Lab Data Lab results reviewed: Yes I reviewed the patient's lab results. Result diagrams: 03/14/21 22:52 03/14/21 22:52 Labs: Lab Results 03/14/21 03/14/21 03/14/21 Range/Units 22:52 22:52 22:52 WBC 12.3 H (4.5-11.0) K/mcL RBC 4.76 (4.50-5.90) M/mcL Hgb 13.1 L (13.5-16.5) g/dL Hct 39.2 L (41.0-55.0) % MCV 82.4 (80.0-100.0) fL MCH 27.5 (26.0-34.0) pg MCHC 33.4 (31.0-36.0) g/dL RDW 13.3 (11.5-14.5) % Plt Count 373 (140-440) K/mcL MPV 9.4 (7.4-10.4) fL Neut % (Auto) 68.9 (38.0-78.0) % Lymph % (Auto) 20.0 (15.0-49.0) % Osborne % (Auto) 9.6 (1.0-12.0) % Eos % (Auto) 1.1 (0.0-7.0) % Baso % (Auto) 0.4 (0.0-2.0) % Lymph # (Auto) 2.45 (1.50-4.80) K/mcL Osborne # (Auto) 1.18 H (0.10-0.90) K/mcL Eos # (Auto) 0.13 (0.00-0.70) K/mcL Baso # (Auto) 0.05 (0.00-0.20) K/mcL Absolute Neutrophils 8.47 H (1.80-8.00) K/mcL VBG Lactic Acid 1.5 (0.5-2.0) mmol/L Sodium 130 L (133-145) mmol/L Potassium 4.3 (3.3-5.1) mmol/L Chloride 97 (96-108) mmol/L Carbon Dioxide 22 (22-30) mmol/L Anion Gap 11.0 (8.0-16.0) BUN 13 (6-20) mg/dL Creatinine 0.7 (0.7-1.2) mg/dL GFR Calculation 108 Glucose 312 H (70-105) mg/dL Calcium 8.3 L (8.6-10.4) mg/dL Total Bilirubin 0.2 (0.1-1.0) mg/dL AST 10 (<40) U/L ALT 11 (<40) U/L Alkaline Phosphatase 101 (39-117) U/L Total Protein 6.7 (5.9-8.4) gm/dL Albumin 2.8 L (3.2-5.2) gm/dL Globulin 3.9 H (2.2-3.7) gm/dL Albumin/Globulin Ratio 0.7 L (1.0-2.3) ED POC Tests ED POC Tests: RANCHO - SARS Antigen Negative Radiology Data Radiology results reviewed: Yes I reviewed the patient's radiology results. Discharge Plan Patient/Caregiver Discharge Instructions Pt seen by E LEARNING DESIGNER/PA only: No Clinical Impression: Abscess of left leg, Diabetes mellitus out of control Patient Disposition: Xfer As Inpt ([facility]) Follow up with: Janine Montez ARNP [Primary Care Provider] - Prescriptions: No Action insulin lispro [Humalog U-100 Insulin] 1 UNIT/0.01 ML solution 1 unit SQ DAILY RF: 0 Lantus U-100 Insulin 1 UNIT/0.01 ML solution 30 unit SQ DAILY RF: 0 Lantus U-100 Insulin 1 UNIT/0.01 ML solution 45 unit SQ HS RF: 0 linezolid 600 MG tablet 600 mg PO BID Qty: 20 RF: 0 gabapentin 100 mg Capsule 100 mg PO TID RF: 0 Victoza 2-Joseph 0.6 mg/0.1 mL (18 mg/3 mL) Pen Injector 0.6 mg SUBCUT DAILY RF: 0 ibuprofen 800 mg RF: 0
[2021-03-14] MEDS: HYDROmorphone 0.5 MG/0.5 ML SYRINGE IV PRN ×2 (22:55→23:45)
[2021-03-14] MEDS ORDERED: DEXTROSE 5% IN WATER 50 ML IV ONE (23:01)
[2021-03-14 23:20] LABS: Basophils # (Auto) 0.05 K/mcL (0.00-0.20); Basophils % (Auto) 0.4 % (0.0-2.0); Eosinophils # (Auto) 0.13 K/mcL (0.00-0.70); Eosinophils % (Auto) 1.1 % (0.0-7.0); Hematocrit 39.2 % (41.0-55.0); Hemoglobin 13.1 g/dL (13.5-16.5); Lymphocytes # (Auto) 2.45 K/mcL (1.50-4.80); Mean Cell Volume 82.4 fL (80.0-100.0); Mean Corpuscular HGB Conc 33.4 g/dL (31.0-36.0); Mean Platelet Volume 9.4 fL (7.4-10.4); Monocytes # (Auto) 1.18 K/mcL (0.10-0.90); Monocytes % (Auto) 9.6 % (1.0-12.0); Neutrophils % (Auto) 68.9 % (38.0-78.0); Platelet Count 373 K/mcL (140-440); RBC 4.76 M/mcL (4.50-5.90); Red Cell Distribution Width 13.3 % (11.5-14.5); WBC 12.3 K/mcL (4.5-11.0)
[2021-03-14 23:35] LABS: ALT/SGPT 11 U/L (<40); AST/SGOT 10 U/L (<40); Albumin 2.8 gm/dL (3.2-5.2); Albumin/Globulin Ratio 0.7 (1.0-2.3); Alkaline Phosphatase 101 U/L (39-117); Bilirubin,Total 0.2 mg/dL (0.1-1.0); Blood Urea Nitrogen 13 mg/dL (6-20); Calcium 8.3 mg/dL (8.6-10.4); Carbon Dioxide 22 mmol/L (22-30); Chloride 97 mmol/L (96-108); Globulin 3.9 gm/dL (2.2-3.7); Glomerular Filtration Rate 108; Glucose 312 mg/dL (70-105)
[2021-03-14] MEDS ORDERED: 0.9 % SODIUM CHLORIDE 500 ML ONE (23:43)
[2021-03-15] MEDS ORDERED: INSULIN REGULAR, HUMAN 1 UNIT/0.01 ML UNIT SQ ONE (00:41)
[2021-03-15] MEDS ORDERED: HYDROmorphone 0.5 MG/0.5 ML SYRINGE IV PRN ×2 (00:52→09:37)
[2021-03-15] MEDS ORDERED: ONDANSETRON 4 MG/2 ML VIAL IV PRN ×5 (00:52→11:42)
[2021-03-15] MEDS: HYDROmorphone 0.5 MG/0.5 ML SYRINGE IV PRN ×4 (01:04→08:48)
[2021-03-15] MEDS: 0.9 % SODIUM CHLORIDE 1,000 ML IV SCH ×3 (01:35→15:28)
[2021-03-15] MEDS ORDERED: HYDROmorphone 0.5 MG/0.5 ML SYRINGE ONE ×4 (02:09→06:37)
--- NOTE | 2021-03-15 06:16 | XRay Report ---
INDICATION: eval abscess, infection TECHNIQUE: AP and lateral left femur COMPARISON: None. FINDINGS: Negative left femur. No femoral fracture. No cortical destruction. No evidence for osteomyelitis There is no soft tissue gas. No radiopaque foreign body. IMPRESSION: Negative left femur Interpreted and Authenticated by: Yahir Ta 03/15/21
[2021-03-15] MEDS ORDERED: VANCOMYCIN PER PHARMACY IV SCH ×3 (08:06→11:42)
--- NOTE | 2021-03-15 08:49 | Internal Med History&Physical ---
HPI History of Present Illness Patient information: Note initiated : 03/15/21 at 8:49 am Service Date, if different from initiated Date: [] Patient: Jordan Carpio 50 y/o M admitted on 03/15/21 for lt hip contusion. Chief Complaint: [left hip pain] History of present illness: Mr. Carpio is a 50 year old M history of methamphetamine use and insulin-dependent type 2 diabetes mellitus, presenting with 1 week history of left lateral hip pain. Patient stated that his last methamphetamine use was a month ago and he smoked it without IV injections. Patient denies any associated injury or trauma. He has been noticing 9 out of 10, constant, burning pain of his left lateral hip with associated skin swelling and lesions. He denies pain anywhere else. He denies systemic symptoms such as fever or chills or general body weakness or lethargy or change in appetite. No alleviating or exacerbating factors. He has not taken any thing [id number] for symptom relief. He decided to come to the ER last night because of the worsening nature of the symptoms. Vital signs within normal limits. Labs significant for leukocytosis with WBC 12.3. Blood sugar elevated to the 300s range. Serum lactic acid normal at 1.5. Urine drug screen pending. Integumentary Integumentary: Present as per HPI and lesions PFSH PFSH All Active Problems (Updated 03/15/21 @ 09:03 by Kenny Ng MD) Anemia, normocytic normochromic (Acute) T2DM (type 2 diabetes mellitus) (Acute) Abscess of left thigh (Acute) Eyebrow laceration (Acute) Contusion of periorbital region, left (Acute) Finger laceration (Acute) Cellulitis of left leg (Acute) Abscess of left leg (Acute) Diabetes mellitus out of control (Acute) Obesity due to excess calories (Chronic) Chronic, continuous use of opioids (Chronic) Laceration of index finger of right hand without complication (Acute) Hyperglycemia (Acute) Sciatica, right side (Acute) Diabetes mellitus type 2, uncontrolled, with complications (Chronic) Lumbar radiculopathy (Acute) Lumbosacral disc disease (Acute) Non-compliance (Acute) Medical History (Updated 03/15/21 @ 09:03 by Kenny Ng MD) Abscess Abscess of left hand Abscess of skin or subcutaneous tissue Abscess, hand Cellulitis Chronic, continuous use of opioids Actually has been off for a number of weeks due to not being able to meet his new doctor; previously see on 10 mg of hydrocodone 3 times daily. This for sciatica/low back pain. (07/18/2020) Dehydration Dental abscess History of MRSA infection Laceration of index finger of right hand without complication Lumbar radiculopathy, acute Obesity due to excess calories BMI 36.9 (07/18/2020) Social History alcohol intake frequency: does not drink (Quit 2007) substance use type: other details: Patient denies methamphetamine use but there is positive drug screen within MEDS/ALLERGIES Home Medications and Allergies Home Medications Medication Instructions Recorded Confirmed Type insulin lispro [Humalog U-100 1 unit SQ DAILY 07/31/18 03/15/21 History Insulin] Lantus U-100 Insulin 30 unit SQ DAILY 08/01/18 03/15/21 History Lantus U-100 Insulin 45 unit SQ HS 08/01/18 03/15/21 History gabapentin 100 mg PO TID 08/08/20 03/15/21 History Allergies Allergy/AdvReac Type Severity Reaction Status Date / Time morphine AdvReac Mild Nausea Verified 03/15/21 07:38 EXAM Constitutional Vitals: Temp Pulse Resp BP Pulse Ox 36.8 C 92 H 22 120/69 95 03/15/21 07:20 03/15/21 07:20 03/15/21 07:20 03/15/21 07:20 03/15/21 07:20 General appearance: cooperative and no acute distress Head Head exam: Present atraumatic and normocephalic Eye Eye exam: Present EOMI and PERRL ENT ENT exam: Present mucous membranes moist, normal exam and normal external ear exam Neck Neck exam: Present normal inspection; Absent lymphadenopathy, tenderness and thyromegaly Respiratory Respiratory exam: Absent accessory muscle use, respiratory distress and wheezes Cardiovascular Cardiovascular exam: Present normal rate and rhythm; Absent JVD GI/Abdominal GI/Abdominal exam: Present normal bowel sounds and soft; Absent organomegaly and tenderness Rectal Rectal exam: Present deferred Extremities Exam Extremities exam: Present full ROM, normal capillary refill and normal inspection; Absent tenderness Neurological Exam Neurological exam: Present alert, CN II-XII intact and oriented X3; Absent motor sensory deficit Psychiatric Psychiatric exam: Present normal affect and normal mood; Absent anxious and depressed Skin Skin exam: Present dry; Absent intact Additional comments: Erythematic rash X2 on left lateral hip, the great of them measuring up to 3 inch across, with central ulcer with pustular formation, and associated tenderness to palpation and swelling DATA Data Completed and Pending Labs: Labs from last 24 hours 03/14/21 03/14/21 03/14/21 22:52 22:52 22:52 WBC 12.3 H RBC 4.76 Hgb 13.1 L Hct 39.2 L MCV 82.4 MCH 27.5 MCHC 33.4 RDW 13.3 Plt Count 373 MPV 9.4 Neut % (Auto) 68.9 Lymph % (Auto) 20.0 [place] % (Auto) 9.6 Eos % (Auto) 1.1 Baso % (Auto) 0.4 Lymph # (Auto) 2.45 [place] # (Auto) 1.18 H Eos # (Auto) 0.13 Baso # (Auto) 0.05 Absolute Neutrophils 8.47 H VBG Lactic Acid 1.5 Sodium 130 L Potassium 4.3 Chloride 97 Carbon Dioxide 22 Anion Gap 11.0 BUN 13 Creatinine 0.7 GFR Calculation 108 Glucose 312 H Calcium 8.3 L Total Bilirubin 0.2 AST 10 ALT 11 Alkaline Phosphatase 101 Total Protein 6.7 Albumin 2.8 L Globulin 3.9 H Albumin/Globulin Ratio 0.7 L A/P Assessment and plan (1) Abscess of left thigh: Status: Acute (2) Cellulitis of left leg: Status: Acute (3) Obesity due to excess calories: Status: Chronic Comment: BMI 36.9 (07/18/2020) Qualifiers: Body mass index: BMI 38.0-38.9 Obesity classification: adult class 2 (BMI 35 - 39.9) Serious obesity comorbidity presence: with serious comorbidity Qualified Code(s): E66.01 - Morbid (severe) obesity due to excess calories; Z68.38 - Body mass index (BMI) 38.0-38.9, adult (4) T2DM (type 2 diabetes mellitus): Status: Acute (5) Anemia, normocytic normochromic: Status: Acute Narrative A/P Narrative: 1. Left hip cellulitis with underlying abscess: Admit to inpatient med surg Consult general surgeon Dr. Oleary for potential I&D with intraoperative wound culture Serial lactic acid Blood culture X2 Tylenol PRN fever Oxycodone 10mg PO q4hr PRN moderate pain Dilaudid 0.5mg IV q2hr PRN severe pain Vancomycin Zosyn Switch antibiotics depending on culture results PT OT evaluation and treatment NPO for now for planned surgery, IV NS@100cc/hr for now 2. T2DM: HgA1c Lantus 30 unit qAM; 45 unit HS Tier 2 SSI Accu Chek q6hr while NPO and AC HS while eating Hypoglycemia protocol NPO for now for planned surgery, IV NS@100cc/hr for now 3. h/o methamphetamine abuse: Urine drug screen 4. anemia, normocytic normochromic: Daily cbc w/ auto diff to trend H/H; transfuse pRBC if hemoglobin <7.0, active bleeding, or symptomatic GI ppx: not currently indicated DVT ppx: SCDs Code status: Full Prognosis: guarded Disposition: inpatient med surg Time Spent With Patient Time: Total time spent is greater than 50% in coordination of care (as documented) at patient's floor/unit and/or counseling patient: Total time spent with greater than 50% in coordination of care (as documented) at patient's floor/unit and/or counseling patient:: 25 - 35 minutes QUALITY VTE Deep Vein Thrombosis/Pulmonary Embolism Present on Admission: No
[2021-03-15] MEDS ORDERED: DEXTROSE 50% 50 ML VIAL IV PRN ×3 (08:50→11:42)
[2021-03-15] MEDS ORDERED: DEXTROSE 31 GM ORAL.SUSP PO PRN ×3 (08:50→11:42)
[2021-03-15] MEDS ORDERED: ACETAMINOPHEN 325 MG TABLET PO PRN (08:54)
[2021-03-15] MEDS ORDERED: traZODone HCL 50 MG TABLET PO PRN (08:54)
--- NOTE | 2021-03-15 08:55 | General Surg History&Physical ---
HPI History of Present Illness Patient information: Note initiated : 03/15/21 at 8:38 am Service Date, if different from initiated Date: [] Patient: Jordan Carpio 50 y/o M admitted on 03/15/21 for lt hip contusion. Chief Complaint: [] Chief complaint: Abscesses left lateral thigh History of present illness: Mr. Carpio is a 50 year old M who was admitted with a very large draining abscesses of left lateral upper thigh. The patient states that he is had developing abscesses at least 2weeks. The become progress ively larger. He presents with a 10 cm x 9 cm more inferior and anterior fluctuant abscess and a 6x5 cm more posterior lateral abscess. He has severe pain. There is extensive cellulitis surrounding both regions. The patient has had multiple abscesses in the past which has grown MRSA corynebacterium, micrococcus, Streptococcus species. He is a diabetic who is quite negligent by history of having uncontrolled diabetes. The patient also has a history of methamphetamine use but states that he has not used any recently. EENT Eyes: Present blurry vision Ears: Present decreased hearing Nose, mouth and throat: Present dental pain Cardiovascular Cardiovascular: Absent chest pain with activity, lightheadedness and palpatations Respiratory Respiratory: Absent dyspnea Gastrointestinal Gastrointestinal: Absent abdominal pain, dysphagia, hematochezia and nausea Musculoskeletal Musculoskeletal: Present arthralgias, myalgias and radiating pain into limb Integumentary Integumentary: Present new lesions, non-healing lesions, skin ulcer and sores Neurological Neurological: Present restless legs; Absent abnormal speech, dizziness and focal weakness Psychiatric Psychiatric: Present anxiety, behavioral changes, depression and irritability Hematologic/Lymphatic Hematologic/Lymphatic: Absent easy bleeding, easy bruising and lymphadenopathy Allergic/Immunologic Allergic/Immunologic: Absent tongue swelling, throat swelling, uticaria, wheezing and lip swelling PFSH PFSH All Active Problems (Updated 03/15/21 @ 08:54 by Jeffrey Oleary MD) Abscess of left thigh (Acute) Eyebrow laceration (Acute) Contusion of periorbital region, left (Acute) Finger laceration (Acute) Cellulitis of left leg (Acute) Abscess of left leg (Acute) Diabetes mellitus out of control (Acute) Obesity due to excess calories (Chronic) Chronic, continuous use of opioids (Chronic) Laceration of index finger of right hand without complication (Acute) Hyperglycemia (Acute) Sciatica, right side (Acute) Diabetes mellitus type 2, uncontrolled, with complications (Chronic) Lumbar radiculopathy (Acute) Lumbosacral disc disease (Acute) Non-compliance (Acute) Medical History (Updated 03/15/21 @ 08:54 by Jeffrey Oleary MD) Abscess Abscess of left hand Abscess of skin or subcutaneous tissue Abscess, hand Cellulitis Chronic, continuous use of opioids Actually has been off for a number of weeks due to not being able to meet his new doctor; previously see on 10 mg of hydrocodone 3 times daily. This for sciatica/low back pain. (07/18/2020) Dehydration Dental abscess History of MRSA infection Laceration of index finger of right hand without complication Lumbar radiculopathy, acute Obesity due to excess calories BMI 36.9 (07/18/2020) Social History (Updated 03/15/21 @ 08:49 by Jeffrey Oleary MD) alcohol intake frequency: does not drink (Quit 2007) substance use type: other details: Patient denies methamphetamine use but there is positive drug screen within MEDS/ALLERGIES Home Medications and Allergies Home Medications Medication Instructions Recorded Confirmed Type insulin lispro [Humalog U-100 1 unit SQ DAILY 07/31/18 03/15/21 History Insulin] Lantus U-100 Insulin 30 unit SQ DAILY 08/01/18 03/15/21 History Lantus U-100 Insulin 45 unit SQ HS 08/01/18 03/15/21 History gabapentin 100 mg PO TID 08/08/20 03/15/21 History Allergies Allergy/AdvReac Type Severity Reaction Status Date / Time morphine AdvReac Mild Nausea Verified 03/15/21 07:38 Physical Examination Vital Signs Vital signs: Temp Pulse Resp BP Pulse Ox 98.2 F 92 H 22 120/69 95 03/15/21 07:20 03/15/21 07:20 03/15/21 07:20 03/15/21 07:20 03/15/21 07:20 General physical appearance General physical exam: moderate distress, moderate pain and obese Eyes Eye exam: PERRL and normal ocular movement ENT ENT exam: normal mucosa, no hearing loss and no congestion Head Head exam IM: Present atraumatic, normal inspection and normocephalic Neck Neck exam: no masses, no bruits, trachea midline, no lymphadenopathy and no venous distension Cardiovascular Cardiovascular exam IM: Present normal rate and rhythm, RRR, +S1 and +S2; Absent JVD Respiratory Respiratory exam: normal expansion, normal respiratory effort and clear to auscultation Abdomen Abdomen: Present non tender and distended Integumentary Integumentary: Present no rash and other (10 x 9 cm and 6 x 5 cm abscesses left lateral thigh; multiple old superficial inflammatory lesions on lower abdomen; suprapubic area; legs and arms) Neurologic Neurologic: Present normal coordination and normal sensation Musculoskeletal Musculoskeletal: Present normal gait, normal posture and other Psychiatric Psychiatric: Present oriented to time, oriented to person, oriented to place, speech is normal and memory intact Results Labs Result diagrams: 03/14/21 22:52 03/14/21 22:52 Labs: Abnormal lab results 03/14/21 03/14/21 Range/Units 22:52 22:52 WBC 12.3 H (4.5-11.0) K/mcL Hgb 13.1 L (13.5-16.5) g/dL Hct 39.2 L (41.0-55.0) % [facility] # (Auto) 1.18 H (0.10-0.90) K/mcL Absolute Neutrophils 8.47 H (1.80-8.00) K/mcL Sodium 130 L (133-145) mmol/L Glucose 312 H (70-105) mg/dL Calcium 8.3 L (8.6-10.4) mg/dL Albumin 2.8 L (3.2-5.2) gm/dL Globulin 3.9 H (2.2-3.7) gm/dL Albumin/Globulin Ratio 0.7 L (1.0-2.3) Diabetes panel 03/14/21 Range/Units 22:52 Sodium 130 L (133-145) mmol/L Potassium 4.3 (3.3-5.1) mmol/L Chloride 97 (96-108) mmol/L Carbon Dioxide 22 (22-30) mmol/L BUN 13 (6-20) mg/dL Creatinine 0.7 (0.7-1.2) mg/dL Glucose 312 H (70-105) mg/dL Calcium 8.3 L (8.6-10.4) mg/dL AST 10 (<40) U/L ALT 11 (<40) U/L Alkaline Phosphatase 101 (39-117) U/L Total Protein 6.7 (5.9-8.4) gm/dL Albumin 2.8 L (3.2-5.2) gm/dL Calcium panel 03/14/21 Range/Units 22:52 Calcium 8.3 L (8.6-10.4) mg/dL Albumin 2.8 L (3.2-5.2) gm/dL Pituitary panel 03/14/21 Range/Units 22:52 Sodium 130 L (133-145) mmol/L Potassium 4.3 (3.3-5.1) mmol/L Chloride 97 (96-108) mmol/L Carbon Dioxide 22 (22-30) mmol/L BUN 13 (6-20) mg/dL Creatinine 0.7 (0.7-1.2) mg/dL Glucose 312 H (70-105) mg/dL Calcium 8.3 L (8.6-10.4) mg/dL Adrenal panel 03/14/21 Range/Units 22:52 Sodium 130 L (133-145) mmol/L Potassium 4.3 (3.3-5.1) mmol/L Chloride 97 (96-108) mmol/L Carbon Dioxide 22 (22-30) mmol/L BUN 13 (6-20) mg/dL Creatinine 0.7 (0.7-1.2) mg/dL Glucose 312 H (70-105) mg/dL Calcium 8.3 L (8.6-10.4) mg/dL Total Bilirubin 0.2 (0.1-1.0) mg/dL AST 10 (<40) U/L ALT 11 (<40) U/L Alkaline Phosphatase 101 (39-117) U/L Total Protein 6.7 (5.9-8.4) gm/dL Albumin 2.8 L (3.2-5.2) gm/dL All other labs normal. A/P Assessment and plan (1) Abscess of left thigh: Status: Acute (2) Diabetes mellitus out of control: Status: Acute Qualifiers: Diabetes mellitus type: type 2 Glycemic state: with hyperglycemia Qualified Code(s): E11.65 - Type 2 diabetes mellitus with hyperglycemia (3) Obesity due to excess calories: Status: Chronic Comment: BMI 36.9 (07/18/2020) Qualifiers: Body mass index: BMI 38.0-38.9 Obesity classification: adult class 2 (BMI 35 - 39.9) Serious obesity comorbidity presence: with serious comorbidity Qualified Code(s): E66.01 - Morbid (severe) obesity due to excess calories; Z68.38 - Body mass index (BMI) 38.0-38.9, adult (4) Chronic, continuous use of opioids: Status: Chronic Comment: Actually has been off for a number of weeks due to not being able to meet his new doctor; previously see on 10 mg of hydrocodone 3 times daily. This for sciatica/low back pain. (07/18/2020) Narrative A/P Narrative: Patient is started on vancomycin and Zosyn pending cultures He is counseled for incision and drainage and debridement of the abscesses Urine drug screen is ordered Hemoglobin A1c is ordered Time Spent With Patient Time: Total time spent is greater than 50% in coordination of care (as documented) at patient's floor/unit and/or counseling patient:
[2021-03-15] MEDS ORDERED: GABAPENTIN 100 MG CAPSULE PO SCH ×2 (09:00→15:00)
[2021-03-15] MEDS ORDERED: DOCUSATE SODIUM 100 MG CAPSULE PO SCH (09:00)
[2021-03-15] MEDS ORDERED: VANCOMYCIN 1,500 MG in 0.9 % SODIUM CHLORIDE 500 ML IV SCH ×2 (09:00→21:00)
[2021-03-15] MEDS ORDERED: PIPERACILLIN SODIUM/TAZOBACTAM 3.375 GM in DEXTROSE 5% IN WATER 50 ML IV SCH ×2 (09:00→13:00)
[2021-03-15] MEDS ORDERED: INSULIN GLARGINE, HUMAN 1 UNIT/0.01 ML SQ SCH ×3 (09:00→21:00)
[2021-03-15] MEDS ORDERED: 0.9 % SODIUM CHLORIDE 1,000 ML IV SCH (09:37)
[2021-03-15] MEDS ORDERED: INSULIN GLARGINE, HUMAN 1 UNIT/0.01 ML SQ ONE (09:48)
[2021-03-15] MEDS ORDERED: oxyCODONE HCL 5 MG TABLET PO PRN (10:05)
[2021-03-15] MEDS ORDERED: MIDAZOLAM 5 MG/5 ML VIAL ONE (10:23)
[2021-03-15] MEDS ORDERED: DEXAMETHASONE 10 MG/ML VIAL ONE (10:23)
[2021-03-15] MEDS ORDERED: GLYCOPYRROLATE 0.2 MG/ML VIAL IV ONE (10:23)
[2021-03-15] MEDS ORDERED: ONDANSETRON 4 MG/2 ML VIAL ONE (10:23)
[2021-03-15] MEDS ORDERED: ePHEDrine 50 MG/ML AMPUL IV ONE (10:23)
[2021-03-15] MEDS ORDERED: KETAMINE 50 MG/ML ML ONE (10:23)
[2021-03-15] MEDS ORDERED: fentaNYL 250 MCG/5 ML VIAL IV ONE (10:23)
[2021-03-15] MEDS ORDERED: PROPOFOL 200 MG/20 ML VIAL IV ONE (10:23)
[2021-03-15] MEDS ORDERED: LIDOCAINE HCL/PF 100 MG/5 ML SYRINGE IV ONE (10:23)
[2021-03-15 10:28] LABS: Hemoglobin A1C 14.1 % Hgb (4.0-6.0)
[2021-03-15] MEDS ORDERED: IPRATROPIUM/ALBUTEROL 3 ML AMPUL.NEB NEB PRN ×2 (10:52→11:42)
[2021-03-15] MEDS ORDERED: ePHEDrine 50 MG/ML AMPUL IV PRN ×2 (10:52→11:42)
[2021-03-15] MEDS ORDERED: PROMETHAZINE 25 MG/ML VIAL IV PRN ×2 (10:52→11:42)
[2021-03-15] MEDS ORDERED: FLUMAZENIL 0.1 MG/ML ML IV PRN ×2 (10:52→11:42)
[2021-03-15] MEDS ORDERED: METOPROLOL TARTRATE 5 MG/5 ML VIAL IV PRN ×2 (10:52→11:42)
[2021-03-15] MEDS ORDERED: diphenhydrAMINE 50 MG/ML VIAL IV PRN ×2 (10:52→11:42)
[2021-03-15] MEDS ORDERED: ACETAMINOPHEN 1,000 MG/100 ML BAG IV ONE (10:52)
[2021-03-15] MEDS ORDERED: METHOCARBAMOL 1,000 MG/10 ML VIAL IV PRN ×2 (10:52→11:42)
[2021-03-15] MEDS ORDERED: NALOXONE HCL 0.4 MG/ML VIAL IV PRN ×2 (10:52→11:42)
[2021-03-15] MEDS ORDERED: MEPERIDINE 25 MG/ML VIAL IV PRN ×2 (10:52→11:42)
[2021-03-15] MEDS ORDERED: ATROPINE SULFATE 0.4 MG/ML VIAL IV PRN ×2 (10:52→11:42)
[2021-03-15] MEDS ORDERED: LACTATED RINGERS 1,000 ML IV SCH ×2 (11:00→11:42)
--- NOTE | 2021-03-15 11:13 | Brief Operative Note ---
Brief Operative Note Date of procedure: 03/15/21 Pre-op diagnosis: ABSCESS OF LEFT LATERAL THIGH X 2 Post-op diagnosis: other (ABSCESSES OF LEFT LATERAL THIGH X2) Procedure: WIDE EXCISION OF ABSCESSES OF LEFT LATERAL THIGH X 2 ;[id number] INCLUDING SKIN AND SUBCUTANEOUS FAT Grafts/Implants: No Anesthesia: GLMA Findings: EXTENSIVE DISSECTING NECROSIS OF 2 LARGE ABSCESS BEDS NOTED Complications: none Surgeon: Jeffrey Oleary Estimated blood loss (cc): 20 Specimens Removed/Pathology: other (WOUND CULTURES) Condition: stable Disposition: PACU
[2021-03-15 11:22] LABS: Amphetamine Screen,Urine Suspect positive; Barbiturate Screen,Urine None detected; Benzodiazepines Screen,Urine None detected; Cannabinoid Screen,Urine None detected; Cocaine Screen,Urine None detected; Opiate Screen,Urine Suspect Positive; Oxycodone, Urine Screen None detected; Phencyclidine Screen,Urine None detected
[2021-03-15] MEDS: fentaNYL 100 MCG/2 ML VIAL IV PRN ×2 (11:26→11:31)
[2021-03-15] MEDS ORDERED: INSULIN LISPRO 1 UNIT/0.01 ML UNIT SQ SCH ×2 (11:30)
[2021-03-15] MEDS ORDERED: fentaNYL 100 MCG/2 ML VIAL IV PRN (11:42)
[2021-03-15] MEDS: oxyCODONE HCL 5 MG TABLET PO PRN ×2 (12:25→19:32)
[2021-03-15] MEDS: PIPERACILLIN SODIUM/TAZOBACTAM 3.375 GM in DEXTROSE 5% IN WATER 50 ML IV SCH ×2 (13:49→18:08)
[2021-03-15] MEDS: MAG HYDROX/AL HYDROX/SIMETH 30 ML ORAL.SUSP PO PRN (13:51)
[2021-03-15] MEDS ORDERED: 0.9 % SODIUM CHLORIDE 10 ML SYRINGE IV SCH (14:00)
[2021-03-15] MEDS: GABAPENTIN 100 MG CAPSULE PO SCH ×2 (15:30→22:34)
[2021-03-15] MEDS: 0.9 % SODIUM CHLORIDE 10 ML SYRINGE IV SCH ×2 (15:30→22:41)
[2021-03-15] MEDS: INSULIN LISPRO 1 UNIT/0.01 ML UNIT SQ SCH ×3 (16:45→22:39)
[2021-03-15] MEDS ORDERED: SENNOSIDES 1 TABLET PO SCH (21:00)
[2021-03-15] MEDS: VANCOMYCIN 1,500 MG in 0.9 % SODIUM CHLORIDE 500 ML IV SCH (22:27)
[2021-03-15] MEDS: SENNOSIDES 1 TABLET PO SCH (22:34)
[2021-03-15] MEDS: DOCUSATE SODIUM 100 MG CAPSULE PO SCH (22:34)
[2021-03-15] MEDS: MUPIROCIN OINT 2% 22GM NARES SCH (22:37)
[2021-03-15] MEDS: INSULIN GLARGINE, HUMAN 1 UNIT/0.01 ML SQ SCH (22:40)
[2021-03-16] MEDS: PIPERACILLIN SODIUM/TAZOBACTAM 3.375 GM in DEXTROSE 5% IN WATER 50 ML IV SCH ×5 (00:05→23:49)
[2021-03-16] MEDS: 0.9 % SODIUM CHLORIDE 1,000 ML IV SCH ×3 (00:05→18:33)
[2021-03-16] MEDS: oxyCODONE HCL 5 MG TABLET PO PRN ×6 (00:06→22:53)
[2021-03-16] MEDS: 0.9 % SODIUM CHLORIDE 10 ML SYRINGE IV SCH ×3 (05:14→20:36)
[2021-03-16] MEDS: GABAPENTIN 100 MG CAPSULE PO SCH ×3 (08:30→20:24)
[2021-03-16] MEDS: DOCUSATE SODIUM 100 MG CAPSULE PO SCH ×2 (08:30→20:24)
[2021-03-16] MEDS: INSULIN GLARGINE, HUMAN 1 UNIT/0.01 ML SQ SCH ×2 (08:30→20:36)
[2021-03-16] MEDS: INSULIN LISPRO 1 UNIT/0.01 ML UNIT SQ SCH ×4 (08:30→20:36)
[2021-03-16] MEDS: MUPIROCIN OINT 2% 22GM NARES SCH ×2 (08:31→20:24)
[2021-03-16] MEDS ORDERED: INSULIN GLARGINE, HUMAN 1 UNIT/0.01 ML SQ SCH (09:00)
[2021-03-16] MEDS: ACETAMINOPHEN 325 MG TABLET PO PRN ×2 (09:55→17:01)
[2021-03-16 10:11] LABS: Basophils % (Auto) 0.7 % (0.0-2.0); Eosinophils # (Auto) 0.05 K/mcL (0.00-0.70); Eosinophils % (Auto) 0.3 % (0.0-7.0); Hematocrit 32.3 % (41.0-55.0); Hemoglobin 10.4 g/dL (13.5-16.5); Lymphocytes # (Auto) 0.81 K/mcL (1.50-4.80); Lymphocytes % (Auto) 5.6 % (15.0-49.0); Mean Cell Volume 86.4 fL (80.0-100.0); Mean Corpuscular HGB Conc 32.2 g/dL (31.0-36.0); Mean Platelet Volume 10.8 fL (7.4-10.4); Monocytes # (Auto) 1.45 K/mcL (0.10-0.90); Neutrophils % (Auto) 83.4 % (38.0-78.0); Platelet Count 323 K/mcL (140-440); RBC 3.74 M/mcL (4.50-5.90); Red Cell Distribution Width 13.2 % (11.5-14.5)
[2021-03-16 10:15] LABS: ALT/SGPT 10 U/L (<40); AST/SGOT 11 U/L (<40); Albumin 2.2 gm/dL (3.2-5.2); Albumin/Globulin Ratio 0.6 (1.0-2.3); Alkaline Phosphatase 83 U/L (39-117); Bilirubin,Total < 0.2 mg/dL (0.1-1.0); Blood Urea Nitrogen 11 mg/dL (6-20); Calcium 8.1 mg/dL (8.6-10.4); Carbon Dioxide 22 mmol/L (22-30); Chloride 100 mmol/L (96-108); Globulin 3.6 gm/dL (2.2-3.7); Glomerular Filtration Rate 108; Glucose 248 mg/dL (70-105)
[2021-03-16] MEDS: VANCOMYCIN 1,500 MG in 0.9 % SODIUM CHLORIDE 500 ML IV SCH ×2 (10:49→20:25)
[2021-03-16 10:52] LABS: WBC 14.4 K/mcL (4.5-11.0)
--- NOTE | 2021-03-16 15:31 | Internal Med Progress Note ---
SUBJECTIVE Subjective Patient information: Note initiated : 03/16/21 at 3:26 pm Service Date, if different from initiated Date: [] Patient: Jordan Carpio 50 y/o M admitted on 03/15/21 for lt hip contusion. Chief Complaint: [] History of present illness: Mr. Carpio is a 50 year old M history of methamphetamine use and insulin-dependent type 2 diabetes mellitus, presenting with 1 week history of left lateral hip pain. Patient stated that his last methamphetamine use was a month ago and he smoked it without IV injections. Patient denies any associated injury or trauma. He has been noticing 9 out of 10, constant, burning pain of his left lateral hip with associated skin swelling and lesions. He denies pain anywhere else. He denies systemic symptoms such as fever or chills or general body weakness or lethargy or change in appetite. No alleviating or exacerbating factors. He has not taken any thing [id number] for symptom relief. He decided to come to the ER last night because of the worsening nature of the symptoms. Vital signs within normal limits. Labs significant for leukocytosis with WBC 12.3. Blood sugar elevated to the 300s range. Serum lactic acid normal at 1.5. Urine drug screen pending. 03/16: s/p I&D by Dr. Oleary on 03/15. Afebrile overnight. Wound culture and blood cultures no growth to date. Denies pain of left hip. Good appetite. Constitutional Vitals: Vital Signs Temp Pulse Resp BP Pulse Ox 36.7 C 85 16 135/75 95 03/16/21 12:00 03/16/21 12:00 03/16/21 12:00 03/16/21 12:00 03/16/21 12:00 Period Temp Pulse Resp BP Sys/Castro Pulse Ox Last 24 Hr 36.5 C-36.8 C 68-89 14-16 125-141/68-78 94-96 Intake and Output 03/16/21 03/16/21 03/16/21 05:59 13:59 21:59 Intake Total 1762 1500 470 Output Total 1200 Balance 562 1500 470 Weight 120.293 kg Intake & Output: Intake & Output 03/16/21 03/16/21 03/16/21 05:59 13:59 21:59 Intake Total 1762 1500 470 Output Total 1200 Balance 562 1500 470 Weight 120.293 kg Intake: IV 1462 1500 50 Sodium Chloride 0.9% 1,000 ml @ 862 1000 100 mls/hr IV .Q10H [facility] Rx#: [id number] Zosyn 3.375 gm In Dextrose 5% 100 50 in Water 50 ml @ 100 mls/hr IV Q6H [facility] Rx#:[id number] Vancomycin 1,500 mg In Sodium 500 500 Chloride 0.9% 500 ml @ 333.3 mls/hr IV Q12H [facility] Rx#: [id number] Oral 300 420 Output: Void Amount 1200 Other: Meal Breakfast Lunch Percent of Meal Consumed 100% 100% Urine Appearance Clear Urine Color Pale General appearance: cooperative and no acute distress Head Head exam: Present atraumatic and normocephalic Eye Eye exam: Present EOMI and PERRL ENT ENT exam: Present mucous membranes moist, normal exam and normal external ear exam Neck Neck exam: Present normal inspection; Absent lymphadenopathy, tenderness and thyromegaly Respiratory Respiratory exam: Absent accessory muscle use, respiratory distress and wheezes Cardiovascular Cardiovascular exam: Present normal rate and rhythm; Absent JVD GI/Abdominal GI/Abdominal exam: Present normal bowel sounds and soft; Absent organomegaly and tenderness Rectal Rectal exam: Present deferred Extremities Exam Extremities exam: Present full ROM, normal capillary refill and normal inspection; Absent tenderness Neurological Exam Neurological exam: Present alert, CN II-XII intact and oriented X3; Absent motor sensory deficit Psychiatric Psychiatric exam: Present normal affect and normal mood; Absent anxious and depressed Skin Skin exam: Present dry Additional comments: Left lateral hip two surgical wounds covered with surgical dressings. OBJ DATA Labs CBC & Chem 7: 03/16/21 05:20 03/16/21 05:20 Labs: Abnormal Lab Results 03/16/21 03/16/21 03/15/21 05:20 05:20 10:09 WBC 14.4 H RBC 3.74 L Hgb 10.4 L Hct 32.3 L MPV 10.8 H Neut % (Auto) 83.4 H Lymph % (Auto) 5.6 L Lymph # (Auto) 0.81 L [place] # (Auto) 1.45 H Absolute Neutrophils 12.02 H Sodium 132 L Glucose 248 H Hemoglobin A1c Calcium 8.1 L Total Protein 5.8 L Albumin 2.2 L Globulin Albumin/Globulin Ratio 0.6 L Urine Opiates Screen Suspect positive A Ur Amphetamines Screen Suspect positive A 03/14/21 03/14/21 03/14/21 22:52 22:52 22:52 WBC 12.3 H RBC Hgb 13.1 L Hct 39.2 L MPV Neut % (Auto) Lymph % (Auto) Lymph # (Auto) [place] # (Auto) 1.18 H Absolute Neutrophils 8.47 H Sodium 130 L Glucose 312 H Hemoglobin A1c 14.1 H Calcium 8.3 L Total Protein Albumin 2.8 L Globulin 3.9 H Albumin/Globulin Ratio 0.7 L Urine Opiates Screen Ur Amphetamines Screen Meds: Medications Acetaminophen (Acetaminophen 325 Mg Tablet) 650 mg PO Q6HP PRN; Protocol PRN Reason: Per Pain Protocol/Fever > 101 Last Admin: 03/16/21 09:55 Dose: 650 mg Documented by: Al Hydrox/Mg Hydrox/Simethicone (Mag Hydrox/Al Hydrox/Simeth 30 Ml Oral.Susp) 30 ml PO Q4-6HP PRN PRN Reason: Dyspepsia Last Admin: 03/15/21 13:51 Dose: 30 ml Documented by: Dextrose (Dextrose 50% 50 Ml Vial) 0 ml IV UD PRN PRN Reason: Hypoglycemia Diagnostic Test (Pha) (Accu-Chek 1 Each Strip) 1 each FS ACHS [facility] Last Admin: 03/16/21 12:11 Dose: 1 each Documented by: Docusate Sodium (Docusate Sodium 100 Mg Capsule) 100 mg PO BID [facility] Last Admin: 03/16/21 08:30 Dose: 100 mg Documented by: Gabapentin (Gabapentin 100 Mg Capsule) 100 mg PO TID [facility] Last Admin: 03/16/21 14:30 Dose: 100 mg Documented by: Glucose (Dextrose 31 Gm Oral.Susp) 15 gm PO PRN PRN PRN Reason: Hypoglycemia Hydromorphone HCl (Hydromorphone 0.5 Mg/0.5 Ml Syringe) 0.5 mg IV Q2HP PRN; Protocol PRN Reason: Per Pain Protocol Sodium Chloride (Sodium Chloride 0.9%) 1,000 mls @ 100 mls/hr IV .Q10H [facility] Last Admin: 03/16/21 10:49 Dose: 100 mls/hr Documented by: Piperacillin Sod/Tazobactam (Sod 3.375 gm/ Dextrose) 50 mls @ 100 mls/hr IV Q6H [facility]; Protocol Last Infusion: 03/16/21 14:00 Dose: Infused Documented by: Vancomycin HCl 1,500 mg/ (Sodium Chloride) 500 mls @ 333.3 mls/hr IV Q12H [facility] Last Infusion: 03/16/21 12:32 Dose: Infused Documented by: Insulin Glargine (Insulin Glargine, Human 1 Unit/0.01 Ml) 30 unit SQ DAILY [facility] Last Admin: 03/16/21 08:30 Dose: 30 unit Documented by: Insulin Glargine (Insulin Glargine, Human 1 Unit/0.01 Ml) 45 unit SQ [facility] Last Admin: 03/15/21 22:40 Dose: 45 units Documented by: Insulin Human Lispro (Insulin Lispro 1 Unit/0.01 Ml Unit) 0 unit SQ ACHS [facility]; Protocol Last Admin: 03/16/21 12:26 Dose: 6 unit Documented by: Mupirocin (Mupirocin Oint 2% 22gm) 1 dose NARES BID [facility] Stop: 03/20/21 21:00 Last Admin: 03/16/21 08:31 Dose: 1 dose Documented by: Ondansetron HCl (Ondansetron 4 Mg/2 Ml Vial) 4 mg IV Q6HP PRN PRN Reason: Nausea And Vomiting Oxycodone HCl (Oxycodone Hcl 5 Mg Tablet) 10 mg PO Q4HP PRN; Protocol PRN Reason: Pain Last Admin: 03/16/21 14:30 Dose: 10 mg Documented by: Senna (Sennosides 1 Tablet) 2 tab PO [facility] Last Admin: 03/15/21 22:34 Dose: 2 tab Documented by: Sodium Chloride (0.9 % Sodium Chloride 10 Ml Syringe) 10 ml IV Q8 [facility] Last Admin: 03/16/21 14:31 Dose: Not Given Documented by: Trazodone HCl (Trazodone Hcl 50 Mg Tablet) 50 mg PO HSP PRN PRN Reason: Insomnia Vancomycin HCl (Vancomycin Per Pharmacy) 1 order IV UD [facility]; Protocol A/P Assessment and plan (1) Abscess of left thigh: Status: Acute (2) Cellulitis of left leg: Status: Acute (3) Obesity due to excess calories: Status: Chronic Comment: BMI 36.9 (07/18/2020) Qualifiers: Body mass index: BMI 38.0-38.9 Obesity classification: adult class 2 (BMI 35 - 39.9) Serious obesity comorbidity presence: with serious comorbidity Qualified Code(s): E66.01 - Morbid (severe) obesity due to excess calories; Z68.38 - Body mass index (BMI) 38.0-38.9, adult (4) T2DM (type 2 diabetes mellitus): Status: Acute (5) Anemia, normocytic normochromic: Status: Acute Narrative A/P Narrative: 1. Left hip cellulitis with underlying abscesses: Stays in inpatient med surg s/p I&D X2 with intraoperative wound culture by Dr. Oleary on 03/15 Serial lactic acid Blood culture X2, no growth to date Wound culture, no growth to date Tylenol PRN fever Oxycodone 10mg PO q4hr PRN moderate pain Dilaudid 0.5mg IV q2hr PRN severe pain Vancomycin Zosyn Switch antibiotics depending on culture results PT OT evaluation and treatment--->could be discharged home when clinically ready IV NS@100cc/hr 2. T2DM: HgA1c 14.1 Lantus 30 unit qAM; 45 unit HS Tier 2 SSI Accu Chek AC HS Hypoglycemia protocol Diabetic diet 3. h/o methamphetamine abuse: Urine drug screen positive for opioid and methamphetamine 4. anemia, normocytic normochromic: Daily cbc w/ auto diff to trend H/H; transfuse pRBC if hemoglobin <7.0, active bleeding, or symptomatic GI ppx: not currently indicated DVT ppx: SCDs Code status: Full Prognosis: stable Disposition: inpatient med surg; PT OT evaluation and treatment--->could be discharged home when clinically ready Time Spent With Patient Time: Total time spent is greater than 50% in coordination of care (as documented) at patient's floor/unit and/or counseling patient: QUALITY VTE Deep Vein Thrombosis/Pulmonary Embolism Present on Admission: No
--- NOTE | 2021-03-16 17:00 | General Surgery Progress Note ---
SUBJECTIVE Subjective Patient information: Note initiated : 03/16/21 at 4:56 pm Service Date, if different from initiated Date: [] Patient: Jordan Carpio 50 y/o M admitted on 03/15/21 for lt hip contusion. Chief Complaint: [] Principal diagnosis: Abscess left thigh with cellulitis Interval history: Patient states that he feels much better. His pain is improved cultures are pending. White blood count 14.4, hemoglobin 10.4 potassium BUN and creatinine normal Elevated blood sugar at 248 Constitutional Vitals: Vital Signs Temp Pulse Resp BP Pulse Ox 98.0 F 85 16 135/75 95 03/16/21 12:00 03/16/21 12:00 03/16/21 12:00 03/16/21 12:00 03/16/21 12:00 Period Temp Pulse Resp BP Sys/Castro Pulse Ox Last 24 Hr 97.7 F-98.2 F 68-89 16-16 125-141/73-78 95-96 Intake and Output 03/16/21 03/16/21 03/16/21 05:59 13:59 21:59 Intake Total 1762 1500 474 Output Total 1200 Balance 562 1500 474 Weight 265 lb 3.2 oz 265 lb 3.2 oz Patient Weight 03/17/21 05:59 Weight 265 lb 3.2 oz Intake & Output: Intake & Output 03/16/21 03/16/21 03/16/21 05:59 13:59 21:59 Intake Total 1762 1500 474 Output Total 1200 Balance 562 1500 474 Weight 265 lb 3.2 oz 265 lb 3.2 oz Intake: IV 1462 1500 50 Sodium Chloride 0.9% 1,000 ml @ 862 1000 100 mls/hr IV .Q10H [facility] Rx#: [id number] Zosyn 3.375 gm In Dextrose 5% 100 50 in Water 50 ml @ 100 mls/hr IV Q6H [facility] Rx#:[id number] Vancomycin 1,500 mg In Sodium 500 500 Chloride 0.9% 500 ml @ 333.3 mls/hr IV Q12H [facility] Rx#: [id number] Oral 300 424 Output: Void Amount 1200 Other: Meal Breakfast snack Percent of Meal Consumed 100% 100% Urine Appearance Clear Urine Color Pale ENT ENT exam: Present mucous membranes moist, normal exam and normal external ear exam Neck Neck exam: Present full ROM and normal inspection; Absent tenderness Respiratory Respiratory exam: Present normal respiratory exam and CTAB; Absent rales, rhonchi and wheezes Cardiovascular Cardiovascular exam: Present normal rate and rhythm, RRR, +S1 and +S2; Absent JVD GI/Abdominal GI/Abdominal exam: Present normal bowel sounds and soft; Absent distended Extremities Exam Extremities exam: Present full ROM Additional comments: Inflammation around abscess left thigh is improved A/P Assessment and plan (1) Abscess of left thigh: Status: Acute (2) Diabetes mellitus out of control: Status: Acute Qualifiers: Diabetes mellitus type: type 2 Glycemic state: with hyperglycemia Qualified Code(s): E11.65 - Type 2 diabetes mellitus with hyperglycemia (3) Obesity due to excess calories: Status: Chronic Comment: BMI 36.9 (07/18/2020) Qualifiers: Body mass index: BMI 38.0-38.9 Obesity classification: adult class 2 (BMI 35 - 39.9) Serious obesity comorbidity presence: with serious comorbidity Qualified Code(s): E66.01 - Morbid (severe) obesity due to excess calories; Z68.38 - Body mass index (BMI) 38.0-38.9, adult (4) Chronic, continuous use of opioids: Status: Chronic Comment: Actually has been off for a number of weeks due to not being able to meet his new doctor; previously see on 10 mg of hydrocodone 3 times daily. This for sciatica/low back pain. (07/18/2020) Narrative A/P Narrative: Continue present antibiotics pending cultures Time Spent With Patient Time: Total time spent is greater than 50% in coordination of care (as documented) at patient's floor/unit and/or counseling patient:
--- NOTE | 2021-03-16 17:37 | EKG ---
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 Measurements Intervals [place] Rate: 82 P: 67 [place]: 148 QRS: 33 QRSD: 98 T: 52 QT: 376 QTc: 439 Interpretive Statements SINUS RHYTHM NO PRIOR TRACING FOR COMPARISON NORMAL TRACING Electronically Signed On 03-16-2021 17:37:24 PDT by Erik Stovall M.D. /[email or web address]/[email or web address]/[id number]
[2021-03-16] MEDS: SENNOSIDES 1 TABLET PO SCH (20:24)
[2021-03-16] MEDS: MAG HYDROX/AL HYDROX/SIMETH 30 ML ORAL.SUSP PO PRN (20:51)
[2021-03-17] MEDS: 0.9 % SODIUM CHLORIDE 1,000 ML IV SCH ×2 (01:47→12:56)
[2021-03-17] MEDS: oxyCODONE HCL 5 MG TABLET PO PRN ×5 (03:22→21:29)
[2021-03-17] MEDS: 0.9 % SODIUM CHLORIDE 10 ML SYRINGE IV SCH ×3 (04:59→22:59)
[2021-03-17] MEDS: PIPERACILLIN SODIUM/TAZOBACTAM 3.375 GM in DEXTROSE 5% IN WATER 50 ML IV SCH (05:32)
[2021-03-17 07:03] LABS: Basophils # (Auto) 0.07 K/mcL (0.00-0.20); Basophils % (Auto) 0.8 % (0.0-2.0); Eosinophils # (Auto) 0.17 K/mcL (0.00-0.70); Eosinophils % (Auto) 2.1 % (0.0-7.0); Hematocrit 36.4 % (41.0-55.0); Hemoglobin 11.4 g/dL (13.5-16.5); Lymphocytes # (Auto) 3.63 K/mcL (1.50-4.80); Lymphocytes % (Auto) 43.9 % (15.0-49.0); Mean Corpuscular HGB Conc 31.3 g/dL (31.0-36.0); Mean Platelet Volume 9.5 fL (7.4-10.4); Monocytes # (Auto) 0.63 K/mcL (0.10-0.90); Monocytes % (Auto) 7.6 % (1.0-12.0); Neutrophils % (Auto) 45.6 % (38.0-78.0); Platelet Count 373 K/mcL (140-440); RBC 4.28 M/mcL (4.50-5.90); Red Cell Distribution Width 13.6 % (11.5-14.5); WBC 8.3 K/mcL (4.5-11.0)
[2021-03-17] MEDS: INSULIN LISPRO 1 UNIT/0.01 ML UNIT SQ SCH ×4 (07:53→21:25)
[2021-03-17] MEDS: VANCOMYCIN 1,500 MG in 0.9 % SODIUM CHLORIDE 500 ML IV SCH ×2 (07:53→21:35)
[2021-03-17] MEDS: GABAPENTIN 100 MG CAPSULE PO SCH ×3 (07:53→21:29)
[2021-03-17] MEDS: DOCUSATE SODIUM 100 MG CAPSULE PO SCH ×2 (07:53→21:29)
[2021-03-17] MEDS: MUPIROCIN OINT 2% 22GM NARES SCH ×2 (07:54→21:24)
[2021-03-17 07:57] LABS: ALT/SGPT 14 U/L (<40); AST/SGOT 13 U/L (<40); Albumin 2.5 gm/dL (3.2-5.2); Albumin/Globulin Ratio 0.7 (1.0-2.3); Alkaline Phosphatase 76 U/L (39-117); Bilirubin,Total < 0.2 mg/dL (0.1-1.0); Blood Urea Nitrogen 12 mg/dL (6-20); Calcium 8.5 mg/dL (8.6-10.4); Carbon Dioxide 26 mmol/L (22-30); Chloride 101 mmol/L (96-108); Globulin 3.4 gm/dL (2.2-3.7); Glomerular Filtration Rate 108; Glucose 132 mg/dL (70-105)
[2021-03-17] MEDS: ACETAMINOPHEN 325 MG TABLET PO PRN ×2 (08:27→18:53)
[2021-03-17] MEDS ORDERED: CALCIUM CARBONATE 500 MG TAB.CHEW CHEWED PRN (09:31)
[2021-03-17] MEDS: INSULIN GLARGINE, HUMAN 1 UNIT/0.01 ML SQ SCH (10:35)
--- NOTE | 2021-03-17 15:13 | Internal Med Progress Note ---
SUBJECTIVE Subjective Patient information: Note initiated : 03/17/21 at 3:08 pm Service Date, if different from initiated Date: [] Patient: Jordan Carpio 50 y/o M admitted on 03/15/21 for lt hip contusion. Chief Complaint: [] Principal diagnosis: Abscess left thigh with cellulitis Interval history: History of present illness: Mr. Carpio is a 50 year old M history of methamphetamine use and insulin-dependent type 2 diabetes mellitus, presenting with 1 week history of left lateral hip pain. Patient stated that his last methamphetamine use was a month ago and he smoked it without IV injections. Patient denies any associated injury or trauma. He has been noticing 9 out of 10, constant, burning pain of his left lateral hip with associated skin swelling and lesions. He denies pain anywhere else. He denies systemic symptoms such as fever or chills or general body weakness or lethargy or change in appetite. No alleviating or exacerbating factors. He has not taken any thing [id number]-[id number] for symptom relief. He decided to come to the ER last night because of the worsening nature of the symptoms. Vital signs within normal limits. Labs significant for leukocytosis with WBC 12.3. Blood sugar elevated to the 300s range. Serum lactic acid normal at 1.5. Urine drug screen pending. 03/16: s/p I&D by Dr. Oleary on 03/15. Afebrile overnight. Wound culture and blood cultures no growth to date. Denies pain of left hip. Good appetite. 03/17: Afebrile overnight. Wound culture growing S aureus, sensitivity reports pending. c/o 8/10 sharp left lateral hip pain. Constitutional Vitals: Vital Signs Temp Pulse Resp BP Pulse Ox 36.2 C 68 14 133/77 97 03/17/21 12:00 03/17/21 12:00 03/17/21 12:00 03/17/21 12:00 03/17/21 12:00 Period Temp Pulse Resp BP Sys/Castro Pulse Ox Last 24 Hr 35.6 C-37.1 C 55-72 14-16 126-142/71-79 93-97 Intake and Output 03/17/21 03/17/21 03/17/21 05:59 13:59 21:59 Intake Total 790 1550 Output Total 1250 Balance -460 1550 Intake & Output: Intake & Output 03/17/21 03/17/21 03/17/21 05:59 13:59 21:59 Intake Total 790 1550 Output Total 1250 Balance -460 1550 Intake: IV 550 1550 Sodium Chloride 0.9% 1,000 ml @ 1000 100 mls/hr IV .Q10H [facility] Rx#: [id number] Zosyn 3.375 gm In Dextrose 5% 50 50 in Water 50 ml @ 100 mls/hr IV Q6H [facility] Rx#:[id number] Vancomycin 1,500 mg In Sodium 500 500 Chloride 0.9% 500 ml @ 333.3 mls/hr IV Q12H [facility] Rx#: [id number] Oral 240 Output: Void Amount 1250 Other: Urine Appearance Clear Urine Color Bright Yellow General appearance: cooperative and no acute distress Head Head exam: Present atraumatic and normocephalic Eye Eye exam: Present EOMI and PERRL ENT ENT exam: Present mucous membranes moist, normal exam and normal external ear exam Neck Neck exam: Present normal inspection; Absent lymphadenopathy, tenderness and thyromegaly Respiratory Respiratory exam: Absent accessory muscle use, respiratory distress and wheezes Cardiovascular Cardiovascular exam: Present normal rate and rhythm; Absent JVD GI/Abdominal GI/Abdominal exam: Present normal bowel sounds and soft; Absent organomegaly and tenderness Rectal Rectal exam: Present deferred Extremities Exam Extremities exam: Present full ROM, normal capillary refill and normal inspection; Absent tenderness Neurological Exam Neurological exam: Present alert, CN II-XII intact and oriented X3; Absent motor sensory deficit Psychiatric Psychiatric exam: Present normal affect and normal mood; Absent anxious and depressed Skin Skin exam: Present dry; Absent intact Additional comments: Left lateral hip surgical wounds X2 covered with surgical dressings. Tenderness to palpation. OBJ DATA Labs CBC & Chem 7: 03/17/21 05:39 03/17/21 05:39 Labs: Abnormal Lab Results 03/17/21 03/17/21 03/16/21 05:39 05:39 05:20 WBC RBC 4.28 L Hgb 11.4 L Hct 36.4 L MPV Neut % (Auto) Lymph % (Auto) Lymph # (Auto) [place] # (Auto) Absolute Neutrophils Sodium 132 L 132 L Anion Gap 5.0 L Glucose 132 H 248 H Hemoglobin A1c Calcium 8.5 L 8.1 L Total Protein 5.8 L Albumin 2.5 L 2.2 L Globulin Albumin/Globulin Ratio 0.7 L 0.6 L Urine Opiates Screen Ur Amphetamines Screen 03/16/21 03/15/21 03/14/21 05:20 10:09 22:52 WBC 14.4 H RBC 3.74 L Hgb 10.4 L Hct 32.3 L MPV 10.8 H Neut % (Auto) 83.4 H Lymph % (Auto) 5.6 L Lymph # (Auto) 0.81 L [place] # (Auto) 1.45 H Absolute Neutrophils 12.02 H Sodium Anion Gap Glucose Hemoglobin A1c 14.1 H Calcium Total Protein Albumin Globulin Albumin/Globulin Ratio Urine Opiates Screen Suspect positive A Ur Amphetamines Screen Suspect positive A 03/14/21 03/14/21 22:52 22:52 WBC 12.3 H RBC Hgb 13.1 L Hct 39.2 L MPV Neut % (Auto) Lymph % (Auto) Lymph # (Auto) [place] # (Auto) 1.18 H Absolute Neutrophils 8.47 H Sodium 130 L Anion Gap Glucose 312 H Hemoglobin A1c Calcium 8.3 L Total Protein Albumin 2.8 L Globulin 3.9 H Albumin/Globulin Ratio 0.7 L Urine Opiates Screen Ur Amphetamines Screen Meds: Medications Acetaminophen (Acetaminophen 325 Mg Tablet) 650 mg PO Q6HP PRN; Protocol PRN Reason: Per Pain Protocol/Fever > 101 Last Admin: 03/17/21 08:27 Dose: 650 mg Documented by: Al Hydrox/Mg Hydrox/Simethicone (Mag Hydrox/Al Hydrox/Simeth 30 Ml Oral.Susp) 30 ml PO Q4-6HP PRN PRN Reason: Dyspepsia Last Admin: 03/16/21 20:51 Dose: 30 ml Documented by: Calcium Carbonate/Glycine (Calcium Carbonate 500 Mg Tab.Chew) 500 mg CHEWED Q4HP PRN PRN Reason: Dyspepsia Dextrose (Dextrose 50% 50 Ml Vial) 0 ml IV UD PRN PRN Reason: Hypoglycemia Diagnostic Test (Pha) (Accu-Chek 1 Each Strip) 1 each FS ACHS [facility] Last Admin: 03/17/21 12:55 Dose: 1 each Documented by: Docusate Sodium (Docusate Sodium 100 Mg Capsule) 100 mg PO BID [facility] Last Admin: 03/17/21 07:53 Dose: 100 mg Documented by: Gabapentin (Gabapentin 100 Mg Capsule) 100 mg PO TID [facility] Last Admin: 03/17/21 07:53 Dose: 100 mg Documented by: Glucose (Dextrose 31 Gm Oral.Susp) 15 gm PO PRN PRN PRN Reason: Hypoglycemia Hydromorphone HCl (Hydromorphone 0.5 Mg/0.5 Ml Syringe) 0.5 mg IV Q2HP PRN; Protocol PRN Reason: Per Pain Protocol Sodium Chloride (Sodium Chloride 0.9%) 1,000 mls @ 100 mls/hr IV .Q10H [facility] Last Admin: 03/17/21 12:56 Dose: 100 mls/hr Documented by: Vancomycin HCl 1,500 mg/ (Sodium Chloride) 500 mls @ 333.3 mls/hr IV Q12H [facility] Last Infusion: 03/17/21 09:24 Dose: Infused Documented by: Insulin Glargine (Insulin Glargine, Human 1 Unit/0.01 Ml) 30 unit SQ DAILY [facility] Last Admin: 03/17/21 10:35 Dose: Not Given Documented by: Insulin Glargine (Insulin Glargine, Human 1 Unit/0.01 Ml) 40 unit SQ [facility] Insulin Human Lispro (Insulin Lispro 1 Unit/0.01 Ml Unit) 0 unit SQ [facility]; Protocol Last Admin: 03/17/21 14:00 Dose: 2 unit Documented by: Mupirocin (Mupirocin Oint 2% 22gm) 1 dose NARES BID [facility] Stop: 03/20/21 21:00 Last Admin: 03/17/21 07:54 Dose: 1 dose Documented by: Ondansetron HCl (Ondansetron 4 Mg/2 Ml Vial) 4 mg IV Q6HP PRN PRN Reason: Nausea And Vomiting Oxycodone HCl (Oxycodone Hcl 5 Mg Tablet) 10 mg PO Q4HP PRN; Protocol PRN Reason: Pain Last Admin: 03/17/21 12:57 Dose: 10 mg Documented by: Pantoprazole Sodium (Pantoprazole 40 Mg Tablet) 40 mg PO DAILY [facility] Senna (Sennosides 1 Tablet) 2 tab PO [facility] Last Admin: 03/16/21 20:24 Dose: 2 tab Documented by: Sodium Chloride (0.9 % Sodium Chloride 10 Ml Syringe) 10 ml IV Q8 [facility] Last Admin: 03/17/21 14:43 Dose: Not Given Documented by: Trazodone HCl (Trazodone Hcl 50 Mg Tablet) 50 mg PO HSP PRN PRN Reason: Insomnia Vancomycin HCl (Vancomycin Per Pharmacy) 1 order IV UD [facility]; Protocol A/P Assessment and plan (1) Abscess of left thigh: Status: Acute (2) Cellulitis of left leg: Status: Acute (3) Obesity due to excess calories: Status: Chronic Comment: BMI 36.9 (07/18/2020) Qualifiers: Body mass index: BMI 38.0-38.9 Obesity classification: adult class 2 (BMI 35 - 39.9) Serious obesity comorbidity presence: with serious comorbidity Qualified Code(s): E66.01 - Morbid (severe) obesity due to excess calories; Z68.38 - Body mass index (BMI) 38.0-38.9, adult (4) T2DM (type 2 diabetes mellitus): Status: Acute (5) Anemia, normocytic normochromic: Status: Acute Narrative A/P Narrative: 1. Left hip cellulitis with underlying abscesses: Stays in inpatient med surg s/p I&D X2 with intraoperative wound culture by Dr. Oleary on 03/15 Serial lactic acid Blood culture X2, no growth to date Wound culture, growing S aureus, sensitivity results pending Tylenol PRN fever Oxycodone 10mg PO q4hr PRN moderate pain Dilaudid 0.5mg IV q2hr PRN severe pain Vancomycin d/c Zosyn Switch antibiotics depending on culture results PT OT evaluation and treatment--->could be discharged home when clinically ready IV NS@100cc/hr 2. T2DM: HgA1c 14.1 Lantus 30 unit qAM; 45-->40 unit HS to avoid hypoglycemia Tier 2 SSI Accu Chek AC HS Hypoglycemia protocol Diabetic diet 3. h/o methamphetamine abuse: Urine drug screen positive for opioid and methamphetamine 4. anemia, normocytic normochromic: Daily cbc w/ auto diff to trend H/H; transfuse pRBC if hemoglobin <7.0, active bleeding, or symptomatic GI ppx: not currently indicated DVT ppx: SCDs Code status: Full Prognosis: stable Disposition: inpatient med surg; PT OT evaluation and treatment--->could be discharged home when clinically ready Time Spent With Patient Time: Total time spent is greater than 50% in coordination of care (as documented) at patient's floor/unit and/or counseling patient: QUALITY VTE Deep Vein Thrombosis/Pulmonary Embolism Present on Admission: No
--- NOTE | 2021-03-17 19:04 | General Surgery Progress Note ---
SUBJECTIVE Subjective Patient information: Note initiated : 03/17/21 at 7:02 pm Service Date, if different from initiated Date: [] Patient: Jordan Carpio 50 y/o M admitted on 03/15/21 for lt hip contusion. Chief Complaint: [] Principal diagnosis: Abscess left thigh with cellulitis Interval history: No complaints today, tolerating dressing changes, awaiting sensitivities on cultures. Constitutional Vitals: Vital Signs Temp Pulse Resp BP Pulse Ox 96.6 F L 66 14 128/75 96 03/17/21 16:00 03/17/21 16:00 03/17/21 16:00 03/17/21 16:00 03/17/21 16:00 Period Temp Pulse Resp BP Sys/Castro Pulse Ox Last 24 Hr 96.1 F-98.6 F 55-68 14-16 128-142/75-79 96-97 Intake and Output 03/17/21 03/17/21 03/17/21 05:59 13:59 21:59 Intake Total 790 1550 1440 Output Total 1250 1999 Balance -460 1550 -560 Intake & Output: Intake & Output 03/17/21 03/17/21 03/17/21 05:59 13:59 21:59 Intake Total 790 1550 1440 Output Total 1250 1999 Balance -460 1550 -560 Intake: IV 550 1550 Sodium Chloride 0.9% 1,000 ml @ 1000 100 mls/hr IV .Q10H [facility] Rx#: [id number] Zosyn 3.375 gm In Dextrose 5% 50 50 in Water 50 ml @ 100 mls/hr IV Q6H [facility] Rx#:[id number] Vancomycin 1,500 mg In Sodium 500 500 Chloride 0.9% 500 ml @ 333.3 mls/hr IV Q12H [facility] Rx#: [id number] Oral 240 1440 Output: Void Amount 1250 2000 Other: Meal Dinner Percent of Meal Consumed 100% Feeding Ability Independent Urine Appearance Clear Clear Urine Color Bright Yellow Pale Urine Odor Normal General appearance: cooperative and no acute distress Extremities Exam Additional comments: wound is dressed, no further cellulitis A/P Narrative A/P Narrative: s/p inc and drainage of left leg abscess, culture with s. aureus. awaiting sensitivities Time Spent With Patient Time: Total time spent is greater than 50% in coordination of care (as documented) at patient's floor/unit and/or counseling patient:
[2021-03-17] MEDS ORDERED: INSULIN GLARGINE, HUMAN 1 UNIT/0.01 ML SQ SCH (21:00)
[2021-03-17] MEDS: SENNOSIDES 1 TABLET PO SCH (21:28)
[2021-03-17] MEDS: traZODone HCL 50 MG TABLET PO PRN (21:29)
[2021-03-18] MEDS: oxyCODONE HCL 5 MG TABLET PO PRN ×4 (01:35→21:30)
[2021-03-18] MEDS: 0.9 % SODIUM CHLORIDE 1,000 ML IV SCH ×3 (01:37→18:57)
[2021-03-18] MEDS: ACETAMINOPHEN 325 MG TABLET PO PRN ×2 (03:39→14:56)
[2021-03-18] MEDS: 0.9 % SODIUM CHLORIDE 10 ML SYRINGE IV SCH ×3 (05:01→22:54)
[2021-03-18 06:47] LABS: Basophils # (Auto) 0.08 K/mcL (0.00-0.20); Basophils % (Auto) 0.9 % (0.0-2.0); Eosinophils # (Auto) 0.13 K/mcL (0.00-0.70); Eosinophils % (Auto) 1.5 % (0.0-7.0); Hematocrit 38.7 % (41.0-55.0); Hemoglobin 12.3 g/dL (13.5-16.5); Lymphocytes # (Auto) 3.02 K/mcL (1.50-4.80); Lymphocytes % (Auto) 34.4 % (15.0-49.0); Mean Cell Volume 84.5 fL (80.0-100.0); Mean Corpuscular HGB Conc 31.8 g/dL (31.0-36.0); Monocytes # (Auto) 0.67 K/mcL (0.10-0.90); Monocytes % (Auto) 7.6 % (1.0-12.0); Neutrophils % (Auto) 55.6 % (38.0-78.0); Platelet Count 426 K/mcL (140-440); RBC 4.58 M/mcL (4.50-5.90); Red Cell Distribution Width 13.3 % (11.5-14.5); WBC 8.8 K/mcL (4.5-11.0)
[2021-03-18 07:13] LABS: ALT/SGPT 13 U/L (<40); AST/SGOT 11 U/L (<40); Albumin 2.6 gm/dL (3.2-5.2); Albumin/Globulin Ratio 0.7 (1.0-2.3); Alkaline Phosphatase 77 U/L (39-117); Bilirubin,Total < 0.2 mg/dL (0.1-1.0); Blood Urea Nitrogen 11 mg/dL (6-20); Calcium 8.8 mg/dL (8.6-10.4); Carbon Dioxide 25 mmol/L (22-30); Chloride 100 mmol/L (96-108); Globulin 3.6 gm/dL (2.2-3.7); Glomerular Filtration Rate 115; Glucose 80 mg/dL (70-105)
[2021-03-18] MEDS: INSULIN LISPRO 1 UNIT/0.01 ML UNIT SQ SCH ×4 (08:12→21:51)
[2021-03-18] MEDS: INSULIN GLARGINE, HUMAN 1 UNIT/0.01 ML SQ SCH ×2 (08:12→21:52)
[2021-03-18] MEDS: DOCUSATE SODIUM 100 MG CAPSULE PO SCH ×2 (08:35→21:59)
[2021-03-18] MEDS: PANTOPRAZOLE 40 MG TABLET PO SCH (08:35)
[2021-03-18] MEDS: LORazepam 1 MG TABLET PO PRN ×2 (08:35→14:56)
[2021-03-18] MEDS: GABAPENTIN 100 MG CAPSULE PO SCH ×3 (08:35→21:36)
[2021-03-18] MEDS: VANCOMYCIN 1,500 MG in 0.9 % SODIUM CHLORIDE 500 ML IV SCH ×2 (08:36→21:55)
[2021-03-18] MEDS: MUPIROCIN OINT 2% 22GM NARES SCH ×2 (08:36→21:51)
--- NOTE | 2021-03-18 14:37 | Internal Med Progress Note ---
SUBJECTIVE Subjective Patient information: Note initiated : 03/18/21 at 2:34 pm Service Date, if different from initiated Date: [] Patient: Jordan Carpio 50 y/o M admitted on 03/15/21 for lt hip contusion. Chief Complaint: [] Principal diagnosis: Abscess left thigh with cellulitis Interval history: History of present illness: Mr. Carpio is a 50 year old M history of methamphetamine use and insulin-dependent type 2 diabetes mellitus, presenting with 1 week history of left lateral hip pain. Patient stated that his last methamphetamine use was a month ago and he smoked it without IV injections. Patient denies any associated injury or trauma. He has been noticing 9 out of 10, constant, burning pain of his left lateral hip with associated skin swelling and lesions. He denies pain anywhere else. He denies systemic symptoms such as fever or chills or general body weakness or lethargy or change in appetite. No alleviating or exacerbating factors. He has not taken any thing [id number] for symptom relief. He decided to come to the ER last night because of the worsening nature of the symptoms. Vital signs within normal limits. Labs significant for leukocytosis with WBC 12.3. Blood sugar elevated to the 300s range. Serum lactic acid normal at 1.5. Urine drug screen pending. 03/16: s/p I&D by Dr. Oleary on 03/15. Afebrile overnight. Wound culture and blood cultures no growth to date. Denies pain of left hip. Good appetite. 03/17: Afebrile overnight. Wound culture growing S aureus, sensitivity reports pending. c/o 8/10 sharp left lateral hip pain. 03/18: Afebrile overnihgt. Wound culture grew MRSA. c/o 5/10 soreness of left lateral hip. Denies fever or chills. c/o anxiety. Constitutional Vitals: Vital Signs Temp Pulse Resp BP Pulse Ox 36.7 C 81 12 145/73 97 03/18/21 12:00 03/18/21 12:00 03/18/21 08:00 03/18/21 12:00 03/18/21 12:00 Period Temp Pulse Resp BP Sys/Castro Pulse Ox Last 24 Hr 35.9 C-36.9 C 66-84 12-14 128-156/73-86 95-97 Intake and Output 03/18/21 03/18/21 03/18/21 05:59 13:59 21:59 Intake Total 1750 2780 Output Total 1250 2690 Balance 500 90 Intake & Output: Intake & Output 03/18/21 03/18/21 03/18/21 05:59 13:59 21:59 Intake Total 1750 2780 Output Total 1250 2690 Balance 500 90 Intake: IV 1500 1500 Sodium Chloride 0.9% 1,000 ml @ 1000 1000 100 mls/hr IV .Q10H [facility] Rx#: [id number] Vancomycin 1,500 mg In Sodium 500 500 Chloride 0.9% 500 ml @ 333.3 mls/hr IV Q12H [facility] Rx#: [id number] Oral 250 1280 Output: Void Amount 1250 2690 Other: Meal cheese stick Breakfast Percent of Meal Consumed 100% Feeding Ability Independent Urine Appearance Clear Urine Color Pale General appearance: cooperative and no acute distress Head Head exam: Present atraumatic and normocephalic Eye Eye exam: Present EOMI and PERRL ENT ENT exam: Present mucous membranes moist, normal exam and normal external ear exam Neck Neck exam: Present normal inspection; Absent lymphadenopathy, tenderness and thyromegaly Respiratory Respiratory exam: Absent accessory muscle use, respiratory distress and wheezes Cardiovascular Cardiovascular exam: Present normal rate and rhythm; Absent JVD GI/Abdominal GI/Abdominal exam: Present normal bowel sounds and soft; Absent organomegaly and tenderness Rectal Rectal exam: Present deferred Extremities Exam Extremities exam: Present full ROM and normal capillary refill; Absent normal inspection and tenderness Additional comments: left lateral hip covered with surgical dressing Neurological Exam Neurological exam: Present alert, CN II-XII intact and oriented X3; Absent motor sensory deficit Psychiatric Psychiatric exam: Present normal affect and normal mood; Absent anxious and depressed Skin Skin exam: Present dry; Absent intact Additional comments: left lateral hip covered with surgical dressing OBJ DATA Labs CBC & Chem 7: 03/18/21 05:41 03/18/21 05:41 Labs: Abnormal Lab Results 03/18/21 03/18/21 03/17/21 05:41 05:41 05:39 WBC RBC Hgb 12.3 L Hct 38.7 L MPV Neut % (Auto) Lymph % (Auto) Lymph # (Auto) Cooke # (Auto) Absolute Neutrophils Sodium 132 L Anion Gap 5.0 L Creatinine 0.6 L Glucose 132 H Calcium 8.5 L Total Protein Albumin 2.6 L 2.5 L Albumin/Globulin Ratio 0.7 L 0.7 L 03/17/21 03/16/21 03/16/21 05:39 05:20 05:20 WBC 14.4 H RBC 4.28 L 3.74 L Hgb 11.4 L 10.4 L Hct 36.4 L 32.3 L MPV 10.8 H Neut % (Auto) 83.4 H Lymph % (Auto) 5.6 L Lymph # (Auto) 0.81 L Cooke # (Auto) 1.45 H Absolute Neutrophils 12.02 H Sodium 132 L Anion Gap Creatinine Glucose 248 H Calcium 8.1 L Total Protein 5.8 L Albumin 2.2 L Albumin/Globulin Ratio 0.6 L Meds: Medications Acetaminophen (Acetaminophen 325 Mg Tablet) 650 mg PO Q6HP PRN; Protocol PRN Reason: Per Pain Protocol/Fever > 101 Last Admin: 03/18/21 03:39 Dose: 650 mg Documented by: Al Hydrox/Mg Hydrox/Simethicone (Mag Hydrox/Al Hydrox/Simeth 30 Ml Oral.Susp) 30 ml PO Q4-6HP PRN PRN Reason: Dyspepsia Last Admin: 03/16/21 20:51 Dose: 30 ml Documented by: Calcium Carbonate/Glycine (Calcium Carbonate 500 Mg Tab.Chew) 500 mg CHEWED Q4HP PRN PRN Reason: Dyspepsia Dextrose (Dextrose 50% 50 Ml Vial) 0 ml IV UD PRN PRN Reason: Hypoglycemia Diagnostic Test (Pha) (Accu-Chek 1 Each Strip) 1 each FS ACHS [facility] Last Admin: 03/18/21 12:03 Dose: 1 each Documented by: Docusate Sodium (Docusate Sodium 100 Mg Capsule) 100 mg PO BID [facility] Last Admin: 03/18/21 08:35 Dose: 100 mg Documented by: Gabapentin (Gabapentin 100 Mg Capsule) 100 mg PO TID [facility] Last Admin: 03/18/21 08:35 Dose: 100 mg Documented by: Glucose (Dextrose 31 Gm Oral.Susp) 15 gm PO PRN PRN PRN Reason: Hypoglycemia Hydromorphone HCl (Hydromorphone 0.5 Mg/0.5 Ml Syringe) 0.5 mg IV Q2HP PRN; Protocol PRN Reason: Per Pain Protocol Sodium Chloride (Sodium Chloride 0.9%) 1,000 mls @ 100 mls/hr IV .Q10H [facility] Last Infusion: 03/18/21 11:37 Dose: Infused Documented by: Vancomycin HCl 1,500 mg/ (Sodium Chloride) 500 mls @ 333.3 mls/hr IV Q12H [facility] Last Infusion: 03/18/21 10:07 Dose: Infused Documented by: Insulin Glargine (Insulin Glargine, Human 1 Unit/0.01 Ml) 30 unit SQ BID [facility] Insulin Human Lispro (Insulin Lispro 1 Unit/0.01 Ml Unit) 0 unit SQ ACHS [facility]; Protocol Last Admin: 03/18/21 14:07 Dose: 4 unit Documented by: Lorazepam (Lorazepam 1 Mg Tablet) 1 mg PO Q6HP PRN PRN Reason: ANXIETY/SEDATION Last Admin: 03/18/21 08:35 Dose: 1 mg Documented by: Mupirocin (Mupirocin Oint 2% 22gm) 1 dose NARES BID [facility] Stop: 03/20/21 21:00 Last Admin: 03/18/21 08:36 Dose: 1 dose Documented by: Ondansetron HCl (Ondansetron 4 Mg/2 Ml Vial) 4 mg IV Q6HP PRN PRN Reason: Nausea And Vomiting Oxycodone HCl (Oxycodone Hcl 5 Mg Tablet) 10 mg PO Q4HP PRN; Protocol PRN Reason: Pain Last Admin: 03/18/21 05:41 Dose: 10 mg Documented by: Pantoprazole Sodium (Pantoprazole 40 Mg Tablet) 40 mg PO DAILY [facility] Last Admin: 03/18/21 08:35 Dose: 40 mg Documented by: Senna (Sennosides 1 Tablet) 2 tab PO HS [facility] Last Admin: 03/17/21 21:28 Dose: 2 tab Documented by: Sodium Chloride (0.9 % Sodium Chloride 10 Ml Syringe) 10 ml IV Q8 [facility] Last Admin: 03/18/21 14:08 Dose: Not Given Documented by: Trazodone HCl (Trazodone Hcl 50 Mg Tablet) 50 mg PO HSP PRN PRN Reason: Insomnia Last Admin: 03/17/21 21:29 Dose: 50 mg Documented by: Vancomycin HCl (Vancomycin Per Pharmacy) 1 order IV UD [facility]; Protocol A/P Assessment and plan (1) Abscess of left thigh: Status: Acute (2) Cellulitis of left leg: Status: Acute (3) Obesity due to excess calories: Status: Chronic Comment: BMI 36.9 (07/18/2020) Qualifiers: Body mass index: BMI 38.0-38.9 Obesity classification: adult class 2 (BMI 35 - 39.9) Serious obesity comorbidity presence: with serious comorbidity Qualified Code(s): E66.01 - Morbid (severe) obesity due to excess calories; Z68.38 - Body mass index (BMI) 38.0-38.9, adult (4) T2DM (type 2 diabetes mellitus): Status: Acute (5) Anemia, normocytic normochromic: Status: Acute Narrative A/P Narrative: 1. Left hip cellulitis with underlying abscesses: Stays in inpatient med surg s/p I&D X2 with intraoperative wound culture by Dr. Oleary on 03/15 Serial lactic acid Blood culture X2, no growth to date Wound culture, grew MRSA Tylenol PRN fever Oxycodone 10mg PO q4hr PRN moderate pain Dilaudid 0.5mg IV q2hr PRN severe pain Vancomycin Switch to oral antibiotics such as Clindamycin 450mg PO QID for 14 days total course of antibiotics therapy PT OT evaluation and treatment--->could be discharged home when clinically ready IV NS@100cc/hr 2. T2DM: HgA1c 14.1 Lantus 30 unit BID to avoid hypoglycemia Tier 2 SSI Accu Chek AC HS Hypoglycemia protocol Diabetic diet 3. h/o methamphetamine abuse: Urine drug screen positive for opioid and methamphetamine 4. anemia, normocytic normochromic: Daily cbc w/ auto diff to trend H/H; transfuse pRBC if hemoglobin <7.0, active bleeding, or symptomatic GI ppx: not currently indicated DVT ppx: SCDs Code status: Full Prognosis: stable Disposition: inpatient med surg; PT OT evaluation and treatment--->could be discharged home when clinically ready Time Spent With Patient Time: Total time spent is greater than 50% in coordination of care (as documented) at patient's floor/unit and/or counseling patient: QUALITY VTE Deep Vein Thrombosis/Pulmonary Embolism Present on Admission: No
--- NOTE | 2021-03-18 17:22 | General Surgery Progress Note ---
SUBJECTIVE Subjective Patient information: Note initiated : 03/18/21 at 5:15 pm Service Date, if different from initiated Date: [] Patient: Jordan Carpio 50 y/o M admitted on 03/15/21 for lt hip contusion. Chief Complaint: [] Principal diagnosis: Abscess left thigh with cellulitis Interval history: Patient is clinically improved. He is bright and alert. He states that he is presently homeless and that his present living situations are quite filthy. Advised him that he will need some input from discharge planners and will probably need to have snf facility placement until his wounds are healed. Labs are normal and his serum glucose is controlled. The MRSA is sensitive to clindamycin and he should respond well to clindamycin therapy. Constitutional Vitals: Vital Signs Temp Pulse Resp BP Pulse Ox 96.8 F L 74 14 179/98 96 03/18/21 16:00 03/18/21 16:00 03/18/21 16:00 03/18/21 16:00 03/18/21 16:00 Period Temp Pulse Resp BP Sys/Castro Pulse Ox Last 24 Hr 96.8 F-98.4 F 66-84 12-14 141-197/73-98 95-97 Intake and Output 03/18/21 03/18/21 03/18/21 05:59 13:59 21:59 Intake Total 1750 2780 1080 Output Total 1250 2690 900 Balance 500 90 180 Intake & Output: Intake & Output 03/18/21 03/18/21 03/18/21 05:59 13:59 21:59 Intake Total 1750 2780 1080 Output Total 1250 2690 900 Balance 500 90 180 Intake: IV 1500 1500 Sodium Chloride 0.9% 1,000 ml @ 1000 1000 100 mls/hr IV .Q10H [facility] Rx#: [id number] Vancomycin 1,500 mg In Sodium 500 500 Chloride 0.9% 500 ml @ 333.3 mls/hr IV Q12H [facility] Rx#: [id number] Oral 250 1280 1080 Output: Void Amount 1250 2690 900 Other: Meal cheese stick Breakfast Lunch Percent of Meal Consumed 100% 100% Feeding Ability Independent Independent Urine Appearance Clear Urine Color Pale Head Head exam: Present atraumatic, normal inspection and normocephalic Eye Eye exam: Present EOMI and normal appearance Pupils: Present normal accommodation and PERRL ENT ENT exam: Present mucous membranes moist, normal exam and normal external ear exam Neck Neck exam: Present full ROM; Absent tenderness Respiratory Respiratory exam: Present normal respiratory exam and CTAB; Absent rales, rhonchi and wheezes Cardiovascular Cardiovascular exam: Present normal rate and rhythm, RRR, +S1 and +S2; Absent JVD GI/Abdominal GI/Abdominal exam: Present normal bowel sounds and soft; Absent distended and mass Extremities Exam Extremities exam: Present full ROM Additional comments: The base of the 2 large abscess cavities are improved. There is minimal necrosis noted. Cellulitis is significantly improved. Neurological Exam Neurological exam: Present normal gait, oriented X3 and reflexes normal Psychiatric Psychiatric exam: Present anxious A/P Assessment and plan (1) Abscess of left thigh: Status: Acute (2) Diabetes mellitus out of control: Status: Acute Qualifiers: Diabetes mellitus type: type 2 Glycemic state: with hyperglycemia Qualified Code(s): E11.65 - Type 2 diabetes mellitus with hyperglycemia (3) Obesity due to excess calories: Status: Chronic Comment: BMI 36.9 (07/18/2020) Qualifiers: Body mass index: BMI 38.0-38.9 Obesity classification: adult class 2 (BMI 35 - 39.9) Serious obesity comorbidity presence: with serious comorbidity Qualified Code(s): E66.01 - Morbid (severe) obesity due to excess calories; Z68.38 - Body mass index (BMI) 38.0-38.9, adult (4) Chronic, continuous use of opioids: Status: Chronic Comment: Actually has been off for a number of weeks due to not being able to meet his new doctor; previously see on 10 mg of hydrocodone 3 times daily. This for sciatica/low back pain. (07/18/2020) Narrative A/P Narrative: Switch antibiotics to clindamycin IV Arrange for wound VAC therapy for both abscess cavities remote encoding center manager to investigate the possibility for snf placement for at least 4 to 6 weeks Time Spent With Patient Time: Total time spent is greater than 50% in coordination of care (as documented) at patient's floor/unit and/or counseling patient:
[2021-03-18] MEDS: HYDROmorphone 0.5 MG/0.5 ML SYRINGE IV PRN (17:39)
[2021-03-18] MEDS: CLINDAMYCIN 600 MG in DEXTROSE 5% IN WATER 50 ML IV SCH (18:15)
[2021-03-18] MEDS: SENNOSIDES 1 TABLET PO SCH (21:58)
[2021-03-19] MEDS: CLINDAMYCIN 600 MG in DEXTROSE 5% IN WATER 50 ML IV SCH ×5 (00:50→23:59)
[2021-03-19] MEDS: oxyCODONE HCL 5 MG TABLET PO PRN ×2 (02:10→21:30)
[2021-03-19] MEDS: 0.9 % SODIUM CHLORIDE 10 ML SYRINGE IV SCH ×3 (04:30→21:31)
[2021-03-19] MEDS: ACETAMINOPHEN 325 MG TABLET PO PRN ×2 (04:43→12:32)
[2021-03-19] MEDS: LORazepam 1 MG TABLET PO PRN (04:44)
[2021-03-19] MEDS: 0.9 % SODIUM CHLORIDE 1,000 ML IV SCH ×4 (06:02→23:59)
[2021-03-19 07:33] LABS: Basophils # (Auto) 0.05 K/mcL (0.00-0.20); Basophils % (Auto) 0.8 % (0.0-2.0); Eosinophils # (Auto) 0.13 K/mcL (0.00-0.70); Hematocrit 40.1 % (41.0-55.0); Hemoglobin 12.8 g/dL (13.5-16.5); Lymphocytes # (Auto) 2.16 K/mcL (1.50-4.80); Lymphocytes % (Auto) 32.8 % (15.0-49.0); Mean Cell Volume 84.1 fL (80.0-100.0); Mean Corpuscular HGB Conc 31.9 g/dL (31.0-36.0); Monocytes # (Auto) 0.48 K/mcL (0.10-0.90); Monocytes % (Auto) 7.3 % (1.0-12.0); Neutrophils % (Auto) 57.1 % (38.0-78.0); Platelet Count 443 K/mcL (140-440); RBC 4.77 M/mcL (4.50-5.90); Red Cell Distribution Width 13.2 % (11.5-14.5); WBC 6.6 K/mcL (4.5-11.0)
[2021-03-19] MEDS: INSULIN LISPRO 1 UNIT/0.01 ML UNIT SQ SCH ×4 (08:05→21:33)
[2021-03-19 08:07] LABS: ALT/SGPT 14 U/L (<40); AST/SGOT 10 U/L (<40); Albumin 2.8 gm/dL (3.2-5.2); Albumin/Globulin Ratio 0.9 (1.0-2.3); Alkaline Phosphatase 74 U/L (39-117); Bilirubin,Total < 0.2 mg/dL (0.1-1.0); Blood Urea Nitrogen 14 mg/dL (6-20); Calcium 8.3 mg/dL (8.6-10.4); Carbon Dioxide 26 mmol/L (22-30); Chloride 104 mmol/L (96-108); Globulin 3.2 gm/dL (2.2-3.7); Glomerular Filtration Rate 108; Glucose 149 mg/dL (70-105)
[2021-03-19] MEDS: VANCOMYCIN 1,500 MG in 0.9 % SODIUM CHLORIDE 500 ML IV SCH (10:09)
[2021-03-19] MEDS: PANTOPRAZOLE 40 MG TABLET PO SCH (10:12)
[2021-03-19] MEDS: GABAPENTIN 100 MG CAPSULE PO SCH ×3 (10:13→21:30)
[2021-03-19] MEDS: DOCUSATE SODIUM 100 MG CAPSULE PO SCH ×2 (10:13→21:32)
[2021-03-19] MEDS: INSULIN GLARGINE, HUMAN 1 UNIT/0.01 ML SQ SCH ×2 (11:03→21:34)
--- NOTE | 2021-03-19 11:10 | Internal Med Progress Note ---
SUBJECTIVE Subjective Patient information: Note initiated : 03/19/21 at 11:07 am Service Date, if different from initiated Date: [] Patient: Jordan Carpio 50 y/o M admitted on 03/15/21 for lt hip contusion. Chief Complaint: [] Principal diagnosis: Abscess left thigh with cellulitis Interval history: History of present illness: Mr. Carpio is a 50 year old M history of methamphetamine use and insulin-dependent type 2 diabetes mellitus, presenting with 1 week history of left lateral hip pain. Patient stated that his last methamphetamine use was a month ago and he smoked it without IV injections. Patient denies any associated injury or trauma. He has been noticing 9 out of 10, constant, burning pain of his left lateral hip with associated skin swelling and lesions. He denies pain anywhere else. He denies systemic symptoms such as fever or chills or general body weakness or lethargy or change in appetite. No alleviating or exacerbating factors. He has not taken any thing [id number] for symptom relief. He decided to come to the ER last night because of the worsening nature of the symptoms. Vital signs within normal limits. Labs significant for leukocytosis with WBC 12.3. Blood sugar elevated to the 300s range. Serum lactic acid normal at 1.5. Urine drug screen pending. 03/16: s/p I&D by Dr. Oleary on 03/15. Afebrile overnight. Wound culture and blood cultures no growth to date. Denies pain of left hip. Good appetite. 03/17: Afebrile overnight. Wound culture growing S aureus, sensitivity reports pending. c/o 8/10 sharp left lateral hip pain. 03/18: Afebrile overnihgt. Wound culture grew MRSA. c/o 5/10 soreness of left lateral hip. Denies fever or chills. c/o anxiety. 03/19: Afebrile overnight. c/o severe headache. c/o 5/10 soreness of left lateral hip. Denies fever or chills. Constitutional Vitals: Vital Signs Temp Pulse Resp BP Pulse Ox 36.2 C 69 16 145/69 95 03/19/21 06:46 03/19/21 06:46 03/19/21 06:46 03/19/21 06:46 03/19/21 06:46 Period Temp Pulse Resp BP Sys/Castro Pulse Ox Last 24 Hr 36.0 C-36.9 C 69-81 14-18 134-197/69-98 93-97 Intake and Output 03/18/21 03/19/21 03/19/21 21:59 05:59 13:59 Intake Total 1134 1514 294 Output Total 1500 1100 650 Balance -366 414 -356 Weight 12.256 kg Intake & Output: Intake & Output 03/18/21 03/19/21 03/19/21 21:59 05:59 13:59 Intake Total 1134 1514 294 Output Total 1500 1100 650 Balance -366 414 -356 Weight 12.256 kg Intake: IV 54 554 54 Cleocin 600 mg In Dextrose 5% 54 54 54 in Water 50 ml @ 100 mls/hr IV Q6H [facility] Rx#:[id number] Vancomycin 1,500 mg In Sodium 500 Chloride 0.9% 500 ml @ 333.3 mls/hr IV Q12H [facility] Rx#: [id number] Oral 1080 960 240 Output: Void Amount 1500 1100 650 Other: Meal Lunch egg salad Breakfast Percent of Meal Consumed 100% 100% 100% Feeding Ability Independent Independent Urine Appearance Clear Urine Color Bright Yellow Bright Yellow General appearance: cooperative and no acute distress Head Head exam: Present atraumatic and normocephalic Eye Eye exam: Present EOMI and PERRL ENT ENT exam: Present mucous membranes moist, normal exam and normal external ear exam Neck Neck exam: Present normal inspection; Absent lymphadenopathy, tenderness and thyromegaly Respiratory Respiratory exam: Absent accessory muscle use, respiratory distress and wheezes Cardiovascular Cardiovascular exam: Present normal rate and rhythm; Absent JVD GI/Abdominal GI/Abdominal exam: Present normal bowel sounds and soft; Absent organomegaly and tenderness Rectal Rectal exam: Present deferred Extremities Exam Extremities exam: Present full ROM and normal capillary refill; Absent normal inspection and tenderness Additional comments: Left lateral hip wound covered with surgical dressing. Neurological Exam Neurological exam: Present alert, CN II-XII intact and oriented X3; Absent motor sensory deficit Psychiatric Psychiatric exam: Present normal affect and normal mood; Absent anxious and depressed Skin Skin exam: Present dry; Absent intact Additional comments: Left lateral hip wound covered with surgical dressing. OBJ DATA Labs CBC & Chem 7: 03/19/21 06:14 03/19/21 06:14 Labs: Abnormal Lab Results 03/19/21 03/19/21 03/18/21 06:14 06:14 05:41 RBC Hgb 12.8 L Hct 40.1 L Plt Count 443 H Sodium Anion Gap Creatinine 0.6 L Glucose 149 H Calcium 8.3 L Albumin 2.8 L 2.6 L Albumin/Globulin Ratio 0.9 L 0.7 L 03/18/21 03/17/21 03/17/21 05:41 05:39 05:39 RBC 4.28 L Hgb 12.3 L 11.4 L Hct 38.7 L 36.4 L Plt Count Sodium 132 L Anion Gap 5.0 L Creatinine Glucose 132 H Calcium 8.5 L Albumin 2.5 L Albumin/Globulin Ratio 0.7 L Meds: Medications Acetaminophen (Acetaminophen 325 Mg Tablet) 650 mg PO Q6HP PRN; Protocol PRN Reason: Per Pain Protocol/Fever > 101 Last Admin: 03/19/21 04:43 Dose: 650 mg Documented by: Al Hydrox/Mg Hydrox/Simethicone (Mag Hydrox/Al Hydrox/Simeth 30 Ml Oral.Susp) 30 ml PO Q4-6HP PRN PRN Reason: Dyspepsia Last Admin: 03/16/21 20:51 Dose: 30 ml Documented by: Calcium Carbonate/Glycine (Calcium Carbonate 500 Mg Tab.Chew) 500 mg CHEWED Q4HP PRN PRN Reason: Dyspepsia Dextrose (Dextrose 50% 50 Ml Vial) 0 ml IV UD PRN PRN Reason: Hypoglycemia Diagnostic Test (Pha) (Accu-Chek 1 Each Strip) 1 each FS ACHS [facility] Last Admin: 03/19/21 08:05 Dose: 1 each Documented by: Docusate Sodium (Docusate Sodium 100 Mg Capsule) 100 mg PO BID [facility] Last Admin: 03/19/21 10:13 Dose: 100 mg Documented by: Gabapentin (Gabapentin 100 Mg Capsule) 100 mg PO TID [facility] Last Admin: 03/19/21 10:13 Dose: 100 mg Documented by: Glucose (Dextrose 31 Gm Oral.Susp) 15 gm PO PRN PRN PRN Reason: Hypoglycemia Hydromorphone HCl (Hydromorphone 0.5 Mg/0.5 Ml Syringe) 0.5 mg IV Q2HP PRN; Protocol PRN Reason: Per Pain Protocol Last Admin: 03/18/21 17:39 Dose: 0.5 mg Documented by: Sodium Chloride (Sodium Chloride 0.9%) 1,000 mls @ 100 mls/hr IV .Q10H [facility] Last Admin: 03/19/21 06:02 Dose: Not Given Documented by: Clindamycin Phosphate 600 mg/ (Dextrose) 54 mls @ 100 mls/hr IV Q6H [facility]; Protocol Last Infusion: 03/19/21 06:40 Dose: Infused Documented by: Insulin Glargine (Insulin Glargine, Human 1 Unit/0.01 Ml) 30 unit SQ BID [facility] Last Admin: 03/19/21 11:03 Dose: Not Given Documented by: Insulin Human Lispro (Insulin Lispro 1 Unit/0.01 Ml Unit) 0 unit SQ ACHS [facility]; Protocol Last Admin: 03/19/21 08:05 Dose: Not Given Documented by: Lorazepam (Lorazepam 1 Mg Tablet) 1 mg PO Q6HP PRN PRN Reason: ANXIETY/SEDATION Last Admin: 03/19/21 04:44 Dose: 1 mg Documented by: Mupirocin (Mupirocin Oint 2% 22gm) 1 dose NARES BID [facility] Stop: 03/20/21 21:00 Last Admin: 03/18/21 21:51 Dose: 1 dose Documented by: Ondansetron HCl (Ondansetron 4 Mg/2 Ml Vial) 4 mg IV Q6HP PRN PRN Reason: Nausea And Vomiting Oxycodone HCl (Oxycodone Hcl 5 Mg Tablet) 10 mg PO Q4HP PRN; Protocol PRN Reason: Pain Last Admin: 03/19/21 02:10 Dose: 10 mg Documented by: Pantoprazole Sodium (Pantoprazole 40 Mg Tablet) 40 mg PO DAILY [facility] Last Admin: 03/19/21 10:12 Dose: 40 mg Documented by: Senna (Sennosides 1 Tablet) 2 tab PO HS [facility] Last Admin: 03/18/21 21:58 Dose: 2 tab Documented by: Sodium Chloride (0.9 % Sodium Chloride 10 Ml Syringe) 10 ml IV Q8 [facility] Last Admin: 03/19/21 04:30 Dose: Not Given Documented by: Trazodone HCl (Trazodone Hcl 50 Mg Tablet) 50 mg PO HSP PRN PRN Reason: Insomnia Last Admin: 03/17/21 21:29 Dose: 50 mg Documented by: A/P Assessment and plan (1) Abscess of left thigh: Status: Acute (2) Cellulitis of left leg: Status: Acute (3) Obesity due to excess calories: Status: Chronic Comment: BMI 36.9 (07/18/2020) Qualifiers: Body mass index: BMI 38.0-38.9 Obesity classification: adult class 2 (BMI 35 - 39.9) Serious obesity comorbidity presence: with serious comorbidity Qualified Code(s): E66.01 - Morbid (severe) obesity due to excess calories; Z6 8.38 - Body mass index (BMI) 38.0-38.9, adult (4) T2DM (type 2 diabetes mellitus): Status: Acute (5) Anemia, normocytic normochromic: Status: Acute Narrative A/P Narrative: 1. Left hip cellulitis with underlying abscesses: Stays in inpatient med surg s/p I&D X2 with intraoperative wound culture by Dr. Oleary on 03/15 Serial lactic acid Blood culture X2, no growth to date Wound culture, grew MRSA Tylenol PRN fever Oxycodone 10mg PO q4hr PRN moderate pain Dilaudid 0.5mg IV q2hr PRN severe pain d/c Vancomycin Switch to IV Clindamycin Need to consult with social studies teacher for a safe discharge plan where patient can have good access to medications and also have someone to help with wound care IV NS@100cc/hr 2. T2DM: HgA1c 14.1 Lantus 30 unit BID to avoid hypoglycemia Tier 2 SSI Accu Chek AC HS Hypoglycemia protocol Diabetic diet 3. h/o methamphetamine abuse: Urine drug screen positive for opioid and methamphetamine 4. anemia, normocytic normochromic: Daily cbc w/ auto diff to trend H/H; transfuse pRBC if hemoglobin <7.0, active bleeding, or symptomatic GI ppx: not currently indicated DVT ppx: SCDs Code status: Full Prognosis: stable Disposition: inpatient med surg; Need to consult with social studies teacher for a safe discharge plan where patient can have good access to medications and also have someone to help with wound care Time Spent With Patient Time: Total time spent is greater than 50% in coordination of care (as docum ented) at patient's floor/unit and/or counseling patient: QUALITY VTE Deep Vein Thrombosis/Pulmonary Embolism Present on Admission: No
[2021-03-19] MEDS: IBUPROFEN 600 MG TABLET PO PRN ×2 (11:24→23:59)
[2021-03-19] MEDS: MUPIROCIN OINT 2% 22GM NARES SCH ×2 (11:26→21:29)
--- NOTE | 2021-03-19 12:30 | General Surgery Progress Note ---
SUBJECTIVE Subjective Patient information: Note initiated : 03/19/21 at 12:25 pm Service Date, if different from initiated Date: [] Patient: Jordan Carpio 50 y/o M admitted on 03/15/21 for lt hip contusion. Chief Complaint: [] Principal diagnosis: Abscess left thigh with cellulitis Interval history: Patient continues to improve. Blood glucose levels remain in excellent range. White blood count is 6600. Inflammation around wounds is gradually resolving. Discussed situation with patient and he relates that he is homeless and has no source of income which will explain the reason for his inability to control his diabetes and keep his body clean. He does now admit to methamphetamine use but states that this is infrequent because he has no source of income. In his present situation he does not have access to running water or electricity 1. Constitutional Vitals: Vital Signs Temp Pulse Resp BP Pulse Ox 97.4 F 76 18 142/72 96 03/19/21 12:00 03/19/21 12:00 03/19/21 12:00 03/19/21 12:00 03/19/21 12:00 Period Temp Pulse Resp BP Sys/Castro Pulse Ox Last 24 Hr 96.8 F-98.5 F 69-79 14-18 134-197/69-98 93-97 Intake and Output 03/18/21 03/19/21 03/19/21 21:59 05:59 13:59 Intake Total 1134 1514 794 Output Total 1500 1100 1200 Balance -366 414 -406 Weight 27 lb 0.32 oz Intake & Output: Intake & Output 03/18/21 03/19/21 03/19/21 21:59 05:59 13:59 Intake Total 1134 1514 794 Output Total 1500 1100 1200 Balance -366 414 -406 Weight 27 lb 0.32 oz Intake: IV 54 554 554 Cleocin 600 mg In Dextrose 5% 54 54 54 in Water 50 ml @ 100 mls/hr IV Q6H [facility] Rx#:[id number] Vancomycin 1,500 mg In Sodium 500 500 Chloride 0.9% 500 ml @ 333.3 mls/hr IV Q12H [facility] Rx#: [id number] Oral 1080 960 240 Output: Void Amount 1500 1100 1200 Other: Meal Lunch egg salad Breakfast Percent of Meal Consumed 100% 100% 100% Feeding Ability Independent Independent Urine Appearance Clear Urine Color Bright Yellow Bright Yellow Urine Odor Normal Respiratory Respiratory exam: Present normal respiratory exam and CTAB; Absent rales, rhonchi and wheezes Cardiovascular Cardiovascular exam: Present normal rate and rhythm; Absent JVD GI/Abdominal GI/Abdominal exam: Present normal bowel sounds and soft; Absent organomegaly and tenderness Extremities Exam Extremities exam: Present full ROM Additional comments: The base of the 2 large abscess cavities are improved. There is minimal necrosis noted. Cellulitis is significantly improved. Neurological Exam Neurological exam: Present normal gait, oriented X3 and reflexes normal Psychiatric Psychiatric exam: Present anxious A/P Assessment and plan (1) Abscess of left thigh: Status: Acute (2) Diabetes mellitus out of control: Status: Acute Qualifiers: Diabetes mellitus type: type 2 Glycemic state: with hyperglycemia Qualified Code(s): E11.65 - Type 2 diabetes mellitus with hyperglycemia (3) Obesity due to excess calories: Status: Chronic Comment: BMI 36.9 (07/18/2020) Qualifiers: Body mass index: BMI 38.0-38.9 Obesity classification: adult class 2 (BMI 35 - 39.9) Serious obesity comorbidity presence: with serious comorbidity Qualified Code(s): E66.01 - Morbid (severe) obesity due to excess calories; Z68.38 - Body mass index (BMI) 38.0-38.9, adult (4) Chronic, continuous use of opioids: Status: Chronic Comment: Actually has been off for a number of weeks due to not being able to meet his new doctor; previously see on 10 mg of hydrocodone 3 times daily. This for sciatica/low back pain. (07/18/2020) Narrative A/P Narrative: switch antibiotics to clindamycin Arrange for a safe haven through case supervisor Continue in hospital over the weekend. Time Spent With Patient Time: Total time spent is greater than 50% in coordination of care (as documented) at patient's floor/unit and/or counseling patient:
[2021-03-19] MEDS: SENNOSIDES 1 TABLET PO SCH (21:30)
[2021-03-20] MEDS: IBUPROFEN 600 MG TABLET PO PRN ×4 (04:45→23:09)
[2021-03-20] MEDS: CLINDAMYCIN 600 MG in DEXTROSE 5% IN WATER 50 ML IV SCH ×4 (04:45→23:09)
[2021-03-20] MEDS: 0.9 % SODIUM CHLORIDE 10 ML SYRINGE IV SCH ×3 (04:46→21:08)
[2021-03-20] MEDS: PANTOPRAZOLE 40 MG TABLET PO SCH (07:35)
[2021-03-20] MEDS: ACETAMINOPHEN 325 MG TABLET PO PRN ×2 (07:36→14:37)
[2021-03-20] MEDS: INSULIN LISPRO 1 UNIT/0.01 ML UNIT SQ SCH ×4 (07:37→21:07)
[2021-03-20] MEDS: GABAPENTIN 100 MG CAPSULE PO SCH ×3 (09:13→21:06)
[2021-03-20] MEDS: DOCUSATE SODIUM 100 MG CAPSULE PO SCH ×2 (09:15→21:06)
[2021-03-20] MEDS: INSULIN GLARGINE, HUMAN 1 UNIT/0.01 ML SQ SCH ×2 (09:16→21:07)
[2021-03-20] MEDS: MUPIROCIN OINT 2% 22GM NARES SCH ×2 (09:18→21:06)
--- NOTE | 2021-03-20 09:26 | General Surgery Progress Note ---
SUBJECTIVE Subjective Patient information: Note initiated : 03/20/21 at 9:25 am Service Date, if different from initiated Date: [] Patient: Jordan Carpio 50 y/o M admitted on 03/15/21 for lt hip contusion. Chief Complaint: [] Principal diagnosis: Abscess left thigh with cellulitis Interval history: Patient status post incision and drainage of left thigh abscess, now with resolved cellulitis. Patient unable to discharge at this time secondary to social situation and inadequate living. Awaiting social work to find adequate placement. Patient is without complaint at this time. Constitutional Vitals: Vital Signs Temp Pulse Resp BP Pulse Ox 97 F 61 18 163/91 95 03/20/21 07:49 03/20/21 07:49 03/20/21 07:49 03/20/21 07:49 03/20/21 07:49 Period Temp Pulse Resp BP Sys/Castro Pulse Ox Last 24 Hr 97 F-98.7 F 61-81 18-20 142-163/71-92 95-99 Intake and Output 03/19/21 03/20/21 03/20/21 21:59 05:59 13:59 Intake Total 54 1508 237 Output Total 1450 1100 850 Balance -1396 408 -613 Weight 27 lb 0.32 oz Intake & Output: Intake & Output 03/19/21 03/20/21 03/20/21 21:59 05:59 13:59 Intake Total 54 1508 237 Output Total 1450 1100 850 Balance -1396 408 -613 Weight 27 lb 0.32 oz Intake: IV 54 1108 Sodium Chloride 0.9% 1,000 ml @ 1000 100 mls/hr IV .Q10H [facility] Rx#: [id number] Cleocin 600 mg In Dextrose 5% 54 108 in Water 50 ml @ 100 mls/hr IV Q6H [facility] Rx#:[id number] Oral 400 237 Output: Void Amount 1450 1100 850 Other: Meal Dinner Percent of Meal Consumed 100% Feeding Ability Independent Urine Appearance Clear Clear Clear Urine Color Bright Yellow Pale Pale Urine Odor Normal Normal Stool Size Large Stool Color Brown Stool Consistency Dry and Hard General appearance: cooperative and no acute distress Skin Additional comments: Wounds are clean dry and intact, no evidence of erythema or further abscess. A/P Narrative A/P Narrative: We will continue with daily dressing changes. Working on placement at this time. Time Spent With Patient Time: Total time spent is greater than 50% in coordination of care (as documented) at patient's floor/unit and/or counseling patient:
[2021-03-20] MEDS: oxyCODONE HCL 5 MG TABLET PO PRN ×2 (10:22→20:56)
[2021-03-20] MEDS: HYDROmorphone 0.5 MG/0.5 ML SYRINGE IV PRN (10:43)
[2021-03-20] MEDS: LORazepam 1 MG TABLET PO PRN (11:36)
[2021-03-20] MEDS: 0.9 % SODIUM CHLORIDE 1,000 ML IV SCH ×2 (11:39→23:40)
--- NOTE | 2021-03-20 13:53 | Internal Med Progress Note ---
SUBJECTIVE Subjective Patient information: Note initiated : 03/20/21 at 1:49 pm Service Date, if different from initiated Date: [] Patient: Jordan Carpio 50 y/o M admitted on 03/15/21 for lt hip contusion. Chief Complaint: [] Principal diagnosis: Abscess left thigh with cellulitis Interval history: History of present illness: Mr. Carpio is a 50 year old M history of methamphetamine use and insulin-dependent type 2 diabetes mellitus, presenting with 1 week history of left lateral hip pain. Patient stated that his last methamphetamine use was a month ago and he smoked it without IV injections. Patient denies any associated injury or trauma. He has been noticing 9 out of 10, constant, burning pain of his left lateral hip with associated skin swelling and lesions. He denies pain anywhere else. He denies systemic symptoms such as fever or chills or general body weakness or lethargy or change in appetite. No alleviating or exacerbating factors. He has not taken any thing umjm-etl-qwuqoet for symptom relief. He decided to come to the ER last night because of the worsening nature of the symptoms. Vital signs within normal limits. Labs significant for leukocytosis with WBC 12.3. Blood sugar elevated to the 300s range. Serum lactic acid normal at 1.5. Urine drug screen pending. 03/16: s/p I&D by Dr. Oleary on 03/15. Afebrile overnight. Wound culture and blood cultures no growth to date. Denies pain of left hip. Good appetite. 03/17: Afebrile overnight. Wound culture growing S aureus, sensitivity reports pending. c/o 8/10 sharp left lateral hip pain. 03/18: Afebrile overnihgt. Wound culture grew MRSA. c/o 5/10 soreness of left lateral hip. Denies fever or chills. c/o anxiety. 03/19: Afebrile overnight. c/o severe headache. c/o 5/10 soreness of left lateral hip. Denies fever or chills. 03/20-patient doing well. No overnight events. Await discharge/placement. On IV clindamycin for thigh abscess. Status post I&D. No fever chills. Doing well. White count 6.6. Creatinine 1.7. No concerns expressed with nursing staff. Constitutional Vitals: Vital Signs Temp Pulse Resp BP Pulse Ox 97.6 F 68 24 H 159/93 94 03/20/21 11:50 03/20/21 11:50 03/20/21 11:50 03/20/21 11:50 03/20/21 11:50 Period Temp Pulse Resp BP Sys/Castro Pulse Ox Last 24 Hr 97 F-98.7 F 61-81 18-24 143-163/71-93 94-99 Intake and Output 03/19/21 03/20/21 03/20/21 21:59 05:59 13:59 Intake Total 54 1508 1291 Output Total 1450 1100 2400 Balance -1396 408 -1109 Weight 12.256 kg alert oriented Nonlabored breathing No anxiety Nondistended abdomen Intake & Output: Intake & Output 03/19/21 03/20/21 03/20/21 21:59 05:59 13:59 Intake Total 54 1508 1291 Output Total 1450 1100 2400 Balance -1396 408 -1109 Weight 12.256 kg Intake: IV 54 1108 1054 Sodium Chloride 0.9% 1,000 ml @ 1000 1000 100 mls/hr IV .Q10H [facility] Rx#: [id number] Cleocin 600 mg In Dextrose 5% 54 108 54 in Water 50 ml @ 100 mls/hr IV Q6H [facility] Rx#:[id number] Oral 400 237 Output: Void Amount 1450 1100 2400 Other: Meal Dinner Percent of Meal Consumed 100% Feeding Ability Independent Urine Appearance Clear Clear Clear Urine Color Bright Yellow Pale Bright Yellow Urine Odor Normal Normal Stool Size Large Stool Color Brown Stool Consistency Dry and Hard OBJ DATA Labs CBC & Chem 7: 03/19/21 06:14 03/19/21 06:14 Labs: Abnormal Lab Results 03/19/21 03/19/21 03/18/21 06:14 06:14 05:41 Hgb 12.8 L Hct 40.1 L Plt Count 443 H Creatinine 0.6 L Glucose 149 H Calcium 8.3 L Albumin 2.8 L 2.6 L Albumin/Globulin Ratio 0.9 L 0.7 L 03/18/21 05:41 Hgb 12.3 L Hct 38.7 L Plt Count Creatinine Glucose Calcium Albumin Albumin/Globulin Ratio Meds: Medications Acetaminophen (Acetaminophen 325 Mg Tablet) 650 mg PO Q6HP PRN; Protocol PRN Reason: Per Pain Protocol/Fever > 101 Last Admin: 03/20/21 07:36 Dose: 650 mg Documented by: Al Hydrox/Mg Hydrox/Simethicone (Mag Hydrox/Al Hydrox/Simeth 30 Ml Oral.Susp) 30 ml PO Q4-6HP PRN PRN Reason: Dyspepsia Last Admin: 03/16/21 20:51 Dose: 30 ml Documented by: Calcium Carbonate/Glycine (Calcium Carbonate 500 Mg Tab.Chew) 500 mg CHEWED Q4HP PRN PRN Reason: Dyspepsia Dextrose (Dextrose 50% 50 Ml Vial) 0 ml IV UD PRN PRN Reason: Hypoglycemia Diagnostic Test (Pha) (Accu-Chek 1 Each Strip) 1 each FS ACHS [facility] Last Admin: 03/20/21 11:08 Dose: 1 each Documented by: Docusate Sodium (Docusate Sodium 100 Mg Capsule) 100 mg PO BID [facility] Last Admin: 03/20/21 09:15 Dose: 100 mg Documented by: Gabapentin (Gabapentin 100 Mg Capsule) 100 mg PO TID [facility] Last Admin: 03/20/21 09:13 Dose: 100 mg Documented by: Glucose (Dextrose 31 Gm Oral.Susp) 15 gm PO PRN PRN PRN Reason: Hypoglycemia Hydromorphone HCl (Hydromorphone 0.5 Mg/0.5 Ml Syringe) 0.5 mg IV Q2HP PRN; Protocol PRN Reason: Per Pain Protocol Last Admin: 03/20/21 10:43 Dose: 0.5 mg Documented by: Sodium Chloride (Sodium Chloride 0.9%) 1,000 mls @ 100 mls/hr IV .Q10H [facility] Last Admin: 03/20/21 11:39 Dose: 100 mls/hr Documented by: Clindamycin Phosphate 600 mg/ (Dextrose) 54 mls @ 100 mls/hr IV Q6H [facility]; Protocol Last Infusion: 03/20/21 12:20 Dose: Infused Documented by: Ibuprofen (Ibuprofen 600 Mg Tablet) 600 mg PO QIDP PRN; Protocol PRN Reason: Headache Last Admin: 03/20/21 11:32 Dose: 600 mg Documented by: Insulin Glargine (Insulin Glargine, Human 1 Unit/0.01 Ml) 30 unit SQ BID [facility] Last Admin: 03/20/21 09:16 Dose: 30 unit Documented by: Insulin Human Lispro (Insulin Lispro 1 Unit/0.01 Ml Unit) 0 unit SQ ACHS [facility]; Protocol Last Admin: 03/20/21 11:34 Dose: 2 unit Documented by: Lorazepam (Lorazepam 1 Mg Tablet) 1 mg PO Q6HP PRN PRN Reason: ANXIETY/SEDATION Last Admin: 03/20/21 11:36 Dose: 1 mg Documented by: Mupirocin (Mupirocin Oint 2% 22gm) 1 dose NARES BID [facility] Stop: 03/20/21 21:00 Last Admin: 03/20/21 09:18 Dose: 1 dose Documented by: Ondansetron HCl (Ondansetron 4 Mg/2 Ml Vial) 4 mg IV Q6HP PRN PRN Reason: Nausea And Vomiting Oxycodone HCl (Oxycodone Hcl 5 Mg Tablet) 10 mg PO Q4HP PRN; Protocol PRN Reason: Pain Last Admin: 03/20/21 10:22 Dose: 10 mg Documented by: Pantoprazole Sodium (Pantoprazole 40 Mg Tablet) 40 mg PO DAILY [facility] Last Admin: 03/20/21 07:35 Dose: 40 mg Documented by: Senna (Sennosides 1 Tablet) 2 tab PO HS [facility] Last Admin: 03/19/21 21:30 Dose: 2 tab Documented by: Sodium Chloride (0.9 % Sodium Chloride 10 Ml Syringe) 10 ml IV Q8 [facility] Last Admin: 03/20/21 04:46 Dose: Not Given Documented by: Trazodone HCl (Trazodone Hcl 50 Mg Tablet) 50 mg PO HSP PRN PRN Reason: Insomnia Last Admin: 03/17/21 21:29 Dose: 50 mg Documented by: A/P Narrative A/P Narrative: * Left hip cellulitis with abscess status post I&D by Dr. Oleary 03/15. MRSA on cultures. On clindamycin after initial treatment on vancomycin. Case management coordinating safe discharge plan for outpatient antibiotics/wound care * Type II DM poorly controlled with A1c 14.1. On basal prandial insulin/CC diet * History of meth use-advised to remain abstinent * Anemia stable * History neuropathy continue gabapentin * Prophylaxis SCDs Plan * Anticipate discharge in 48 hours on clindamycin * Pre-existing medical condition management home medications * Continue wound care Time Spent With Patient Time: Total time spent is greater than 50% in coordination of care (as documented) at patient's floor/unit and/or counseling patient: QUALITY VTE Deep Vein Thrombosis/Pulmonary Embolism Present on Admission: No
[2021-03-20] MEDS: SENNOSIDES 1 TABLET PO SCH (21:06)
[2021-03-21] MEDS: oxyCODONE HCL 5 MG TABLET PO PRN ×2 (02:35→19:18)
[2021-03-21] MEDS: CLINDAMYCIN 600 MG in DEXTROSE 5% IN WATER 50 ML IV SCH ×4 (05:15→23:33)
[2021-03-21] MEDS: IBUPROFEN 600 MG TABLET PO PRN ×3 (05:16→23:34)
[2021-03-21] MEDS: ACETAMINOPHEN 325 MG TABLET PO PRN ×2 (07:13→17:02)
[2021-03-21] MEDS: INSULIN LISPRO 1 UNIT/0.01 ML UNIT SQ SCH ×4 (07:14→22:10)
[2021-03-21] MEDS: 0.9 % SODIUM CHLORIDE 10 ML SYRINGE IV SCH ×3 (07:14→22:10)
--- NOTE | 2021-03-21 09:08 | General Surgery Progress Note ---
SUBJECTIVE Subjective Patient information: Note initiated : 03/21/21 at 9:06 am Service Date, if different from initiated Date: [] Patient: Jordan Carpio 50 y/o M admitted on 03/15/21 for lt hip contusion. Chief Complaint: [] Principal diagnosis: Abscess left thigh with cellulitis Interval history: No significant changes overnight. Cellulitis is completely resolved. Awaiting placement. Constitutional Vitals: Vital Signs Temp Pulse Resp BP Pulse Ox 97.6 F 64 20 146/79 94 03/21/21 06:45 03/21/21 06:45 03/21/21 06:45 03/21/21 06:45 03/21/21 07:23 Period Temp Pulse Resp BP Sys/Castro Pulse Ox Last 24 Hr 97.3 F-98.1 F 60-85 16-24 133-162/74-93 94-96 Intake and Output 03/20/21 03/21/21 03/21/21 21:59 05:59 13:59 Intake Total 1054 508 Output Total 1650 Balance 1054 -1142 Weight 275 lb 3.2 oz Intake & Output: Intake & Output 03/20/21 03/21/21 03/21/21 21:59 05:59 13:59 Intake Total 1054 508 Output Total 1650 Balance 1054 -1142 Weight 275 lb 3.2 oz Intake: IV 1054 108 Sodium Chloride 0.9% 1,000 ml @ 1000 100 mls/hr IV .Q10H [facility] Rx#: [id number] Cleocin 600 mg In Dextrose 5% 54 108 in Water 50 ml @ 100 mls/hr IV Q6H [facility] Rx#:[id number] Oral 0 400 Output: Void Amount 1650 Other: Meal Lunch Percent of Meal Consumed 100% Feeding Ability Independent Urine Appearance Clear Urine Color Pale General appearance: cooperative and no acute distress Skin Additional comments: Wound is dressed, no evidence of cellulitis. A/P Narrative A/P Narrative: We will continue with dressing changes. Anticipate discharge once placement can be found. Time Spent With Patient Time: Total time spent is greater than 50% in coordination of care (as documented) at patient's floor/unit and/or counseling patient:
[2021-03-21] MEDS: DOCUSATE SODIUM 100 MG CAPSULE PO SCH ×2 (11:42→22:08)
[2021-03-21] MEDS: PANTOPRAZOLE 40 MG TABLET PO SCH (11:43)
[2021-03-21] MEDS: GABAPENTIN 100 MG CAPSULE PO SCH ×3 (11:43→22:08)
[2021-03-21] MEDS: INSULIN GLARGINE, HUMAN 1 UNIT/0.01 ML SQ SCH ×2 (11:44→22:08)
[2021-03-21] MEDS: 0.9 % SODIUM CHLORIDE 1,000 ML IV SCH ×2 (11:46→22:13)
--- NOTE | 2021-03-21 11:57 | Internal Med Progress Note ---
SUBJECTIVE Subjective Patient information: Note initiated : 03/21/21 at 11:57 am Service Date, if different from initiated Date: [] Patient: Jordan Carpio 50 y/o M admitted on 03/15/21 for lt hip contusion. Chief Complaint: [] Principal diagnosis: Abscess left thigh with cellulitis Interval history: History of present illness: Mr. Carpio is a 50 year old M history of methamphetamine use and insulin-dependent type 2 diabetes mellitus, presenting with 1 week history of left lateral hip pain. Patient stated that his last methamphetamine use was a month ago and he smoked it without IV injections. Patient denies any associated injury or trauma. He has been noticing 9 out of 10, constant, burning pain of his left lateral hip with associated skin swelling and lesions. He denies pain anywhere else. He denies systemic symptoms such as fever or chills or general body weakness or lethargy or change in appetite. No alleviating or exacerbating factors. He has not taken any thing [id number] for symptom relief. He decided to come to the ER last night because of the worsening nature of the symptoms. Vital signs within normal limits. Labs significant for leukocytosis with WBC 12.3. Blood sugar elevated to the 300s range. Serum lactic acid normal at 1.5. Urine drug screen pending. 03/16: s/p I&D by Dr. Oleary on 03/15. Afebrile overnight. Wound culture and blood cultures no growth to date. Denies pain of left hip. Good appetite. 03/17: Afebrile overnight. Wound culture growing S aureus, sensitivity reports pending. c/o 8/10 sharp left lateral hip pain. 03/18: Afebrile overnihgt. Wound culture grew MRSA. c/o 5/10 soreness of left lateral hip. Denies fever or chills. c/o anxiety. 03/19: Afebrile overnight. c/o severe headache. c/o 5/10 soreness of left lateral hip. Denies fever or chills. 03/20-patient doing well. No overnight events. Await discharge/placement. On IV clindamycin for thigh abscess. Status post I&D. No fever chills. Doing well. White count 6.6. Creatinine 1.7. No concerns expressed with nursing staff. 03/21-patient doing well. No overnight events. Ongoing antibiotic coverage. No fever chills nausea vomiting. Tolerating diet. Await placement, coordination as per case management. No expressed concerns by patient or nursing staff. Tolerating diet. Constitutional Vitals: Vital Signs Temp Pulse Resp BP Pulse Ox 97.6 F 64 20 146/79 94 03/21/21 06:45 03/21/21 06:45 03/21/21 06:45 03/21/21 06:45 03/21/21 07:23 Period Temp Pulse Resp BP Sys/Castro Pulse Ox Last 24 Hr 97.3 F-98.1 F 60-85 16-20 133-162/74-90 94-96 Intake and Output 03/20/21 03/21/21 03/21/21 21:59 05:59 13:59 Intake Total 1578 517 3759 Output Total 1650 1225 Balance 1054 -1142 0 Weight 124.829 kg Alert oriented Nonlabored breathing No anxiety Intake & Output: Intake & Output 03/20/21 03/21/21 03/21/21 21:59 05:59 13:59 Intake Total 4204 753 0133 Output Total 1650 1225 Balance 1054 -1142 0 Weight 124.829 kg Intake: Nourishment/Supplement quantity 225 (ml) IV 5476 500 9746 Sodium Chloride 0.9% 1,000 ml @ 1000 1000 100 mls/hr IV .Q10H [facility] Rx#: [id number] Cleocin 600 mg In Dextrose 5% 54 108 in Water 50 ml @ 100 mls/hr IV Q6H [facility] Rx#:[id number] Oral 0 400 Output: Void Amount 1650 1225 Other: Meal Lunch Breakfast Percent of Meal Consumed 100% 100% Feeding Ability Independent Independent Nourishment/Supplement name Dave Urine Appearance Clear Clear Urine Color Pale Bright Yellow Urine Odor Normal OBJ DATA Labs CBC & Chem 7: 03/19/21 06:14 03/19/21 06:14 Labs: Abnormal Lab Results 03/19/21 03/19/21 06:14 06:14 Hgb 12.8 L Hct 40.1 L Plt Count 443 H Glucose 149 H Calcium 8.3 L Albumin 2.8 L Albumin/Globulin Ratio 0.9 L Meds: Medications Acetaminophen (Acetaminophen 325 Mg Tablet) 650 mg PO Q6HP PRN; Protocol PRN Reason: Per Pain Protocol/Fever > 101 Last Admin: 03/21/21 07:13 Dose: 650 mg Documented by: Al Hydrox/Mg Hydrox/Simethicone (Mag Hydrox/Al Hydrox/Simeth 30 Ml Oral.Susp) 30 ml PO Q4-6HP PRN PRN Reason: Dyspepsia Last Admin: 03/16/21 20:51 Dose: 30 ml Documented by: Calcium Carbonate/Glycine (Calcium Carbonate 500 Mg Tab.Chew) 500 mg CHEWED Q4HP PRN PRN Reason: Dyspepsia Dextrose (Dextrose 50% 50 Ml Vial) 0 ml IV UD PRN PRN Reason: Hypoglycemia Diagnostic Test (Pha) (Accu-Chek 1 Each Strip) 1 each FS ACHS [facility] Last Admin: 03/21/21 11:47 Dose: 1 each Documented by: Docusate Sodium (Docusate Sodium 100 Mg Capsule) 100 mg PO BID [facility] Last Admin: 03/21/21 11:42 Dose: 100 mg Documented by: Gabapentin (Gabapentin 100 Mg Capsule) 100 mg PO TID [facility] Last Admin: 03/21/21 11:43 Dose: 100 mg Documented by: Glucose (Dextrose 31 Gm Oral.Susp) 15 gm PO PRN PRN PRN Reason: Hypoglycemia Hydromorphone HCl (Hydromorphone 0.5 Mg/0.5 Ml Syringe) 0.5 mg IV Q2HP PRN; Protocol PRN Reason: Per Pain Protocol Last Admin: 03/20/21 10:43 Dose: 0.5 mg Documented by: Sodium Chloride (Sodium Chloride 0.9%) 1,000 mls @ 100 mls/hr IV .Q10H [facility] Last Admin: 03/21/21 11:46 Dose: 100 mls/hr Documented by: Clindamycin Phosphate 600 mg/ (Dextrose) 54 mls @ 100 mls/hr IV Q6H [facility]; Protocol Last Infusion: 03/21/21 05:50 Dose: Infused Documented by: Ibuprofen (Ibuprofen 600 Mg Tablet) 600 mg PO QIDP PRN; Protocol PRN Reason: Headache Last Admin: 03/21/21 05:16 Dose: 600 mg Documented by: Insulin Glargine (Insulin Glargine, Human 1 Unit/0.01 Ml) 30 unit SQ BID [facility] Last Admin: 03/21/21 11:44 Dose: 30 unit Documented by: Insulin Human Lispro (Insulin Lispro 1 Unit/0.01 Ml Unit) 0 unit SQ ACHS [facility]; P rotocol Last Admin: 03/21/21 07:14 Dose: Not Given Documented by: Lorazepam (Lorazepam 1 Mg Tablet) 1 mg PO Q6HP PRN PRN Reason: ANXIETY/SEDATION Last Admin: 03/20/21 11:36 Dose: 1 mg Documented by: Ondansetron HCl (Ondansetron 4 Mg/2 Ml Vial) 4 mg IV Q6HP PRN PRN Reason: Nausea And Vomiting Oxycodone HCl (Oxycodone Hcl 5 Mg Tablet) 10 mg PO Q4HP PRN; Protocol PRN Reason: Pain Last Admin: 03/21/21 02:35 Dose: 10 mg Documented by: Pantoprazole Sodium (Pantoprazole 40 Mg Tablet) 40 mg PO DAILY [facility] Last Admin: 03/21/21 11:43 Dose: 40 mg Documented by: Senna (Sennosides 1 Tablet) 2 tab PO HS [facility] Last Admin: 03/20/21 21:06 Dose: 2 tab Documented by: Sodium Chloride (0.9 % Sodium Chloride 10 Ml Syringe) 10 ml IV Q8 [facility] Last Admin: 03/21/21 07:14 Dose: Not Given Documented by: Trazodone HCl (Trazodone Hcl 50 Mg Tablet) 50 mg PO HSP PRN PRN Reason: Insomnia Last Admin: 03/17/21 21:29 Dose: 50 mg Documented by: A/P Narrative A/P Narrative: * Left hip cellulitis with abscess status post I&D by Dr. Oleary 03/15. MRSA on cultures. On clindamycin after initial treatment on vancomycin. Case management coordinating safe discharge plan for outpatient antibiotics/wound care * Type II DM poorly controlled with A1c 14.1. Continue basal prandial insulin/CC diet, blood sugar goal * History of meth use-advised to remain abstinent * Anemia stable * History neuropathy continue gabapentin * Prophylaxis SCDs Plan * Anticipate discharge in 48 hours on clindamycin * Pre-existing medical condition management home medications * Continue wound care per surgery Time Spent With Patient Time: Total time spent is greater than 50% in coordination of care (as documented) at patient's floor/unit and/or counseling patient: QUALITY VTE Deep Vein Thrombosis/Pulmonary Embolism Present on Admission: No
[2021-03-21] MEDS: SENNOSIDES 1 TABLET PO SCH (22:09)
[2021-03-21] MEDS: traZODone HCL 50 MG TABLET PO PRN (23:39)
[2021-03-22] MEDS: oxyCODONE HCL 5 MG TABLET PO PRN ×5 (02:47→22:34)
[2021-03-22] MEDS: CLINDAMYCIN 600 MG in DEXTROSE 5% IN WATER 50 ML IV SCH ×3 (05:09→17:56)
[2021-03-22] MEDS: IBUPROFEN 600 MG TABLET PO PRN (05:10)
[2021-03-22] MEDS: INSULIN LISPRO 1 UNIT/0.01 ML UNIT SQ SCH ×4 (07:49→21:08)
[2021-03-22] MEDS: PANTOPRAZOLE 40 MG TABLET PO SCH (09:18)
[2021-03-22] MEDS: GABAPENTIN 100 MG CAPSULE PO SCH ×3 (09:19→21:08)
[2021-03-22] MEDS: INSULIN GLARGINE, HUMAN 1 UNIT/0.01 ML SQ SCH ×2 (09:19→21:08)
[2021-03-22] MEDS: DOCUSATE SODIUM 100 MG CAPSULE PO SCH ×2 (09:19→21:08)
[2021-03-22] MEDS: 0.9 % SODIUM CHLORIDE 10 ML SYRINGE IV SCH ×3 (11:56→21:11)
--- NOTE | 2021-03-22 12:23 | Operative Note ---
DATE OF OPERATION: 03/15/2021 PREOPERATIVE DIAGNOSIS: Abscess, left lateral thigh x2. POSTOPERATIVE DIAGNOSIS: Abscess, left lateral thigh x2. PROCEDURE: Wide excision of abscess of left lateral thigh measuring 6 x 8 x 3 cm and 4 x 3 x 5 cm, including skin and subcutaneous tissue. SURGEON: Jeffrey Oleary M.D. FINDINGS: Extensive dissecting necrosis of two large abscesses of the left lateral thigh. DESCRIPTION OF PROCEDURE: Under general anesthesia, the patient was turned to the right lateral decubitus position. The lateral thigh and leg were prepped and draped in a sterile field. Using a scalpel, the smaller abscess which was more anteriorly was incised and cultures were taken. The abscess cavity appeared to be deep and appeared to be dissecting anteriorly. It measured 4 x 3 x 5 cm. Using electrocautery, skin and subcutaneous fat was excised back to normal tissue. Irrigation was carried out and the wound was packed. Next, the more posterior lateral abscess was incised and drained. It was widely excised in a similar manner. It measured 6 x 8 x 3 cm. Each of the wounds were irrigated once more and were packed with Aquacel AG gauze. They were covered with 4 x 4s and large Tegaderm pads. The patient tolerated the procedure well. He was turned to the supine position, awakened, extubated, transferred to a bed, and taken to the postanesthetic care unit in stable, satisfactory condition. LCS:song Job ID: [id number] Doc ID: [id number] Jeffrey Oleary M.D.
[2021-03-22] MEDS: 0.9 % SODIUM CHLORIDE 1,000 ML IV SCH ×2 (13:26→13:53)
--- NOTE | 2021-03-22 14:04 | General Surgery Progress Note ---
SUBJECTIVE Subjective Patient information: Note initiated : 03/22/21 at 1:59 pm Service Date, if different from initiated Date: [] Patient: Jordan Carpio 50 y/o M admitted on 03/15/21 for lt hip contusion. Chief Complaint: [] Principal diagnosis: Abscess left thigh with cellulitis Interval history: Patient is doing well and his wounds are healing nicely. Arrangements have been made for wound VAC therapy. Blood sugars have been well controlled. Constitutional Vitals: Vital Signs Temp Pulse Resp BP Pulse Ox 97.4 F 72 18 138/88 97 03/22/21 11:37 03/22/21 11:37 03/22/21 11:37 03/22/21 11:37 03/22/21 11:37 Period Temp Pulse Resp BP Sys/Castro Pulse Ox Last 24 Hr 97.4 F-98.4 F 60-72 16-22 136-169/73-88 95-97 Intake and Output 03/21/21 03/22/21 03/22/21 21:59 05:59 13:59 Intake Total 1615 666 9266 Output Total 700 1400 1000 Balance 1139 -846 468 Intake & Output: Intake & Output 03/21/21 03/22/21 03/22/21 21:59 05:59 13:59 Intake Total 2534 623 8683 Output Total 700 1400 1000 Balance 1139 -846 468 Intake: IV 1054 54 1108 Sodium Chloride 0.9% 1,000 ml @ 1000 1000 100 mls/hr IV .Q10H [facility] Rx#: [id number] Cleocin 600 mg In Dextrose 5% 54 54 108 in Water 50 ml @ 100 mls/hr IV Q6H [facility] Rx#:[id number] Oral 785 500 360 Output: Void Amount 700 1400 1000 Other: Meal snack Breakfast Percent of Meal Consumed 100% 100% Feeding Ability Independent Assist with Tray Set Up Urine Appearance Clear Clear Clear Urine Color Pale Pale Straw Urine Odor Normal Strong Stool Size Moderate Stool Color Brown Stool Consistency Normal for Patient Formed # Voids 1 ENT ENT exam: Present mucous membranes moist, normal exam and normal external ear exam Neck Neck exam: Present normal inspection; Absent lymphadenopathy, tenderness and thyromegaly Respiratory Respiratory exam: Present normal respiratory exam and CTAB; Absent rales, rhonchi and wheezes Cardiovascular Cardiovascular exam: Present normal rate and rhythm, +S1 and +S2; Absent JVD GI/Abdominal GI/Abdominal exam: Present normal bowel sounds and soft; Absent distended Extremities Exam Extremities exam: Present full ROM and neurovascular intact Additional comments: Wound base is clean; cellulitis is significantly improved Neurological Exam Neurological exam: Present alert, normal gait and oriented X3 Psychiatric Psychiatric exam: Present depressed, normal affect and normal mood A/P Assessment and plan (1) Abscess of left thigh: Status: Acute (2) Obesity due to excess calories: Status: Chronic Comment: BMI 36.9 (07/18/2020) Qualifiers: Body mass index: BMI 38.0-38.9 Obesity classification: adult class 2 (BMI 35 - 39.9) Serious obesity comorbidity presence: with serious comorbidity Qualified Code(s): E66.01 - Morbid (severe) obesity due to excess calories; Z68.38 - Body mass index (BMI) 38.0-38.9, adult (3) Diabetes mellitus type 2, uncontrolled, with complications: Status: Chronic (4) Diabetes mellitus out of control: Status: Acute Qualifiers: Diabetes mellitus type: type 2 Glycemic state: with hyperglycemia Qualified Code(s): E11.65 - Type 2 diabetes mellitus with hyperglycemia Narrative A/P Narrative: Patient is clinically stable and will be discharged as soon as wound VAC is available for application. Time Spent With Patient Time: Total time spent is greater than 50% in coordination of care (as documented) at patient's floor/unit and/or counseling patient:
--- NOTE | 2021-03-22 15:11 | Internal Med Progress Note ---
SUBJECTIVE Subjective Patient information: Note initiated : 03/22/21 at 3:10 pm Service Date, if different from initiated Date: [] Patient: Jordan Carpio 50 y/o M admitted on 03/15/21 for lt hip contusion. Chief Complaint: [] Principal diagnosis: Abscess left thigh with cellulitis Interval history: History of present illness: Mr. Carpio is a 50 year old M history of methamphetamine use and insulin-dependent type 2 diabetes mellitus, presenting with 1 week history of left lateral hip pain. Patient stated that his last methamphetamine use was a month ago and he smoked it without IV injections. Patient denies any associated injury or trauma. He has been noticing 9 out of 10, constant, burning pain of his left lateral hip with associated skin swelling and lesions. He denies pain anywhere else. He denies systemic symptoms such as fever or chills or general body weakness or lethargy or change in appetite. No alleviating or exacerbating factors. He has not taken any thing [id number] for symptom relief. He decided to come to the ER last night because of the worsening nature of the symptoms. Vital signs within normal limits. Labs significant for leukocytosis with WBC 12.3. Blood sugar elevated to the 300s range. Serum lactic acid normal at 1.5. Urine drug screen pending. 03/16: s/p I&D by Dr. Oleary on 03/15. Afebrile overnight. Wound culture and blood cultures no growth to date. Denies pain of left hip. Good appetite. 03/17: Afebrile overnight. Wound culture growing S aureus, sensitivity reports pending. c/o 8/10 sharp left lateral hip pain. 03/18: Afebrile overnihgt. Wound culture grew MRSA. c/o 5/10 soreness of left lateral hip. Denies fever or chills. c/o anxiety. 03/19: Afebrile overnight. c/o severe headache. c/o 5/10 soreness of left lateral hip. Denies fever or chills. 03/20-patient doing well. No overnight events. Await discharge/placement. On IV clindamycin for thigh abscess. Status post I&D. No fever chills. Doing well. White count 6.6. Creatinine 1.7. No concerns expressed with nursing staff. 03/21-patient doing well. No overnight events. Ongoing antibiotic coverage. No fever chills nausea vomiting. Tolerating diet. Await placement, coordination as per case management. No expressed concerns by patient or nursing staff. Tolerating diet. 03/22-patient doing well. Awaiting wound VAC. Possible discharge in 24 hours. Continuing clindamycin for additional 3 weeks. Will follow up with outpatient wound care/surgery. No overnight fever chills. No concerns per staff Constitutional Vitals: Vital Signs Temp Pulse Resp BP Pulse Ox 97.4 F 72 18 138/88 97 03/22/21 11:37 03/22/21 11:37 03/22/21 11:37 03/22/21 11:37 03/22/21 11:37 Period Temp Pulse Resp BP Sys/Castro Pulse Ox Last 24 Hr 97.4 F-98.4 F 60-72 16-22 136-169/73-88 95-97 Intake and Output 03/22/21 03/22/21 03/22/21 05:59 13:59 21:59 Intake Total 554 1468 240 Output Total 1400 1000 550 Balance -846 468 -310 Alert oriented Nonlabored breathing No anxiety Ongoing wound care Intake & Output: Intake & Output 03/22/21 03/22/21 03/22/21 05:59 13:59 21:59 Intake Total 554 1468 240 Output Total 1400 1000 550 Balance -846 468 -310 Intake: IV 54 1108 Sodium Chloride 0.9% 1,000 ml @ 1000 100 mls/hr IV .Q10H [facility] Rx#: [id number] Cleocin 600 mg In Dextrose 5% 54 108 in Water 50 ml @ 100 mls/hr IV Q6H [facility] Rx#:[id number] Oral 500 360 240 Output: Void Amount 1400 1000 550 Other: Meal Breakfast Lunch Percent of Meal Consumed 100% 100% Feeding Ability Assist with Tray Set Up Urine Appearance Clear Clear Urine Color Pale Straw Dark Yellow Urine Odor Strong Stool Size Moderate Stool Color Brown Stool Consistency Normal for Patient Formed OBJ DATA Labs CBC & Chem 7: 03/19/21 06:14 03/19/21 06:14 Meds: Medications Acetaminophen (Acetaminophen 325 Mg Tablet) 650 mg PO Q6HP PRN; Protocol PRN Reason: Per Pain Protocol/Fever > 101 Last Admin: 03/21/21 17:02 Dose: 650 mg Documented by: Acetaminophen/Butalbital/Caffeine (Butalb/Acetaminophen/Caffeine 1 Tablet) 1 tab PO Q6HP PRN PRN Reason: Headache Al Hydrox/Mg Hydrox/Simethicone (Mag Hydrox/Al Hydrox/Simeth 30 Ml Oral.Susp) 30 ml PO Q4-6HP PRN PRN Reason: Dyspepsia Last Admin: 03/16/21 20:51 Dose: 30 ml Documented by: Calcium Carbonate/Glycine (Calcium Carbonate 500 Mg Tab.Chew) 500 mg CHEWED Q4HP PRN PRN Reason: Dyspepsia Dextrose (Dextrose 50% 50 Ml Vial) 0 ml IV UD PRN PRN Reason: Hypoglycemia Diagnostic Test (Pha) (Accu-Chek 1 Each Strip) 1 each FS ACHS [facility] Last Admin: 03/22/21 11:36 Dose: 1 each Documented by: Docusate Sodium (Docusate Sodium 100 Mg Capsule) 100 mg PO BID [facility] Last Admin: 03/22/21 09:19 Dose: 100 mg Documented by: Gabapentin (Gabapentin 100 Mg Capsule) 100 mg PO TID [facility] Last Admin: 03/22/21 14:16 Dose: 100 mg Documented by: Glucose (Dextrose 31 Gm Oral.Susp) 15 gm PO PRN PRN PRN Reason: Hypoglycemia Hydromorphone HCl (Hydromorphone 0.5 Mg/0.5 Ml Syringe) 0.5 mg IV Q2HP PRN; Protocol PRN Reason: Per Pain Protocol Last Admin: 03/20/21 10:43 Dose: 0.5 mg Documented by: Sodium Chloride (Sodium Chloride 0.9%) 1,000 mls @ 100 mls/hr IV .Q10H [facility] Last Admin: 03/22/21 13:53 Dose: Not Given Documented by: Clindamycin Phosphate 600 mg/ (Dextrose) 54 mls @ 100 mls/hr IV Q6H [facility]; Protocol Last Infusion: 03/22/21 13:27 Dose: Infused Documented by: Ibuprofen (Ibuprofen 600 Mg Tablet) 600 mg PO QIDP PRN; Protocol PRN Reason: Headache Last Admin: 03/22/21 05:10 Dose: 600 mg Documented by: Insulin Glargine (Insulin Glargine, Human 1 Unit/0.01 Ml) 30 unit SQ BID [facility] Last Admin: 03/22/21 09:19 Dose: 30 unit Documented by: Insulin Human Lispro (Insulin Lispro 1 Unit/0.01 Ml Unit) 0 unit SQ ACHS [facility]; Protocol Last Admin: 03/22/21 12:04 Dose: 2 unit Documented by: Lorazepam (Lorazepam 1 Mg Tablet) 1 mg PO Q6HP PRN PRN Reason: ANXIETY/SEDATION Last Admin: 03/20/21 11:36 Dose: 1 mg Documented by: Ondansetron HCl (Ondansetron 4 Mg/2 Ml Vial) 4 mg IV Q6HP PRN PRN Reason: Nausea And Vomiting Oxycodone HCl (Oxycodone Hcl 5 Mg Tablet) 10 mg PO Q4HP PRN; Protocol PRN Reason: Pain Last Admin: 03/22/21 14:16 Dose: 10 mg Documented by: Pantoprazole Sodium (Pantoprazole 40 Mg Tablet) 40 mg PO DAILY [facility] Last Admin: 03/22/21 09:18 Dose: 40 mg Documented by: Senna (Sennosides 1 Tablet) 2 tab PO HS [facility] Last Admin: 03/21/21 22:09 Dose: 2 tab Documented by: Sodium Chloride (0.9 % Sodium Chloride 10 Ml Syringe) 10 ml IV Q8 [facility] Last Admin: 03/22/21 14:16 Dose: 10 ml Documented by: Trazodone HCl (Trazodone Hcl 50 Mg Tablet) 50 mg PO HSP PRN PRN Reason: Insomnia Last Admin: 03/21/21 23:39 Dose: 50 mg Documented by: A/P Narrative A/P Narrative: * Left hip cellulitis with abscess status post I&D by Dr. Oleary 03/15. MRSA on cultures. Continuing clindamycin for additional 3 weeks after initial treatment on vancomycin. Case management coordinating safe discharge plan for outpatient antibiotics/wound care * Type II DM poorly controlled with A1c 14.1. Continue basal prandial insulin/CC diet, blood sugar goal * History of meth use-advised to remain abstinent * Anemia stable * History neuropathy continue gabapentin * Prophylaxis SCDs Plan * Anticipate discharge in 24 hours on clindamycin * Pre-existing medical condition management home medications * Continue wound care per surgery * Outpatient wound VAC Time Spent With Patient Time: Total time spent is greater than 50% in coordination of care (as documented) at patient's floor/unit and/or counseling patient: QUALITY VTE Deep Vein Thrombosis/Pulmonary Embolism Present on Admission: No
[2021-03-22] MEDS: BUTALB/ACETAMINOPHEN/CAFFEINE 1 TABLET PO PRN (19:58)
[2021-03-22] MEDS: SENNOSIDES 1 TABLET PO SCH (21:08)
[2021-03-22] MEDS: traZODone HCL 50 MG TABLET PO PRN (22:34)
[2021-03-23] MEDS: 0.9 % SODIUM CHLORIDE 1,000 ML IV SCH (00:05)
[2021-03-23] MEDS: oxyCODONE HCL 5 MG TABLET PO PRN ×3 (02:50→13:14)
[2021-03-23] MEDS: BUTALB/ACETAMINOPHEN/CAFFEINE 1 TABLET PO PRN (05:43)
[2021-03-23] MEDS: CLINDAMYCIN 600 MG in DEXTROSE 5% IN WATER 50 ML IV SCH ×3 (06:14→12:19)
[2021-03-23] MEDS: 0.9 % SODIUM CHLORIDE 10 ML SYRINGE IV SCH (06:14)
[2021-03-23] MEDS: PANTOPRAZOLE 40 MG TABLET PO SCH (07:37)
[2021-03-23] MEDS: INSULIN LISPRO 1 UNIT/0.01 ML UNIT SQ SCH ×2 (07:39→12:18)
[2021-03-23] MEDS: GABAPENTIN 100 MG CAPSULE PO SCH (09:09)
[2021-03-23] MEDS: DOCUSATE SODIUM 100 MG CAPSULE PO SCH (09:09)
[2021-03-23] MEDS: INSULIN GLARGINE, HUMAN 1 UNIT/0.01 ML SQ SCH (09:10)
[2021-03-23] MEDS: HYDROmorphone 0.5 MG/0.5 ML SYRINGE IV PRN (13:14)
--- NOTE | 2021-03-23 14:08 | Discharge Summary ---
Discharge Provider Provider Patient information: Note initiated : 03/23/21 at 2:05 pm Service Date, if different from initiated Date: [] Patient: Jordan Carpio 50 y/o M admitted on 03/15/21 for lt hip contusion. Discharge diagnosis * Left hip cellulitis with abscess status post I&D by Dr. Oleary 03/15. MRSA on cultures. Continuing clindamycin for additional 3 weeks after initial treatment on vancomycin. Case management coordinating safe discharge plan for outpatient antibiotics/wound care * Type II DM poorly controlled with A1c 14.1. Continue basal prandial insulin/CC diet, blood sugar goal * History of meth use-advised to remain abstinent * Anemia stable * History neuropathy continue gabapentin Brief hospital course Interval history: History of present illness: Mr. Carpio is a 50 year old M history of methamphetamine use and insulin-dependent type 2 diabetes mellitus, presenting with 1 week history of left lateral hip pain. Patient stated that his last methamphetamine use was a month ago and he smoked it without IV in jections. Patient denies any associated injury or trauma. He has been noticing 9 out of 10, constant, burning pain of his left lateral hip with associated skin swelling and lesions. He denies pain anywhere else. He denies systemic symptoms such as fever or chills or general body weakness or lethargy or change in appetite. No alleviating or exacerbating factors. He has not taken any thing [id number] for symptom relief. He decided to come to the ER last night because of the worsening nature of the symptoms. Vital signs within normal limits. Labs significant for leukocytosis with WBC 12.3. Blood sugar elevated to the 300s range. Serum lactic acid normal at 1.5. Urine drug screen pending. 03/16: s/p I&D by Dr. Oleary on 03/15. Afebrile overnight. Wound culture and blood cultures no growth to date. Denies pain of left hip. Good appetite. 03/17: Afebrile overnight. Wound culture growing S aureus, sensitivity reports pending. c/o 8/10 sharp left lateral hip pain. 03/18: Afebrile overnihgt. Wound culture grew MRSA. c/o 5/10 soreness of left lateral hip. Denies fever or chills. c/o anxiety. 03/19: Afebrile overnight. c/o severe headache. c/o 5/10 soreness of left lateral hip. Denies fever or chills. 6/-patient doing well. No overnight events. Await discharge/placement. On IV clindamycin for thigh abscess. Status post I&D. No fever chills. Doing well. White count 6.6. Creatinine 1.7. No concerns expressed with nursing staff. 6/-patient doing well. No overnight events. Ongoing antibiotic coverage. No fever chills nausea vomiting. Tolerating diet. Await placement, coordination as per case management. No expressed concerns by patient or nursing staff. Tolerating diet. 03/22-patient doing well. Awaiting wound VAC. Possible discharge in 24 hours. Continuing clindamycin for additional 3 weeks. Will follow up with outpatient wound care/surgery. No overnight fever chills. No concerns per staff 03/23 patient doing well. No overnight events. Wound VAC arranged by surgery. Discharging on 3 weeks of oral clindamycin. Date of admission: 03/15/21 08:52 Discharge date: 03/23/21 Primary care physician: TIGRE Clarke Consults: 03/15/21 Consult to Physician [CONS] Stat Comment: Consulting Provider: Kenny Ng Reason For Exam: Physician to Consult Consult to Physician [CONS] Stat Comment: Consulting Provider: Jeffrey Oleary Reason For Exam: Physician to Consult Discharge Meds Discharge Medications Home Medications insulin lispro [Humalog U-100 Insulin] 1 unit SQ DAILY 07/31/18 [History Confirmed 03/15/21 Last Taken 03/11/21 20:00] Lantus U-100 Insulin 30 unit SQ DAILY 08/01/18 [History Confirmed 03/15/21 Last Taken 03/11/21 12:00] Lantus U-100 Insulin 45 unit SQ HS 08/01/18 [History Confirmed 03/15/21 Last Taken 03/11/21 08:00] gabapentin 100 mg PO TID 08/08/20 [History Confirmed 03/15/21 Last Taken 03/13/21 08:00 100] clindamycin HCl 600 mg PO Q8H 21 Days #126 cap 03/23/21 [Rx Last Taken Unknown] insulin lispro [Humalog U-100 Insulin] See Protocol SUBCUT ACHS #10 ml 03/23/21 [Rx Last Taken Unknown] oxycodone 10 mg PO Q4HP PRN #10 tab 03/23/21 [Rx Last Taken Unknown] COURSE Hospital Course Hospital course: . Discharge diagnosis: MRSA abscess Time Spent with Patient Time attestation: Total time spent providing and/or coordinating discharge services: EXAM Constitutional Vitals: Temp Pulse Resp BP Pulse Ox 98.5 F 70 20 136/75 96 03/23/21 12:00 03/23/21 12:00 03/23/21 12:00 03/23/21 12:00 03/23/21 12:00 Discharge Data Data Completed and Pending Labs on day of discharge: Preliminary micro results at discharge 03/15/21 11:37 Gram Stain - Preliminary Abscess - Left Anaerobic Culture - Preliminary 03/15/21 11:37 Gram Stain - Preliminary Abscess - Left Anaerobic Culture - Preliminary Discharge Plan Patient/Caregiver Discharge Instructions Activity: increase activity as tolerated Diet: Consistent Carbohydrate Instructions: Diabetes and Your Skin (DC), Type 2 Diabetes Management for Adults (DC) Activity Restrictions/Additional Instructions: Wound VAC management per surgery Clindamycin 600 mg 3 times a day for 21 days Follow-up surgery as advised by Dr. Oleary Sliding-scale insulin Return to ER if fever chills or worsening wounds/bleeding noted Prescriptions: New oxycodone 5 mg Tablet 10 mg PO Q4HP PRN (Reason: Pain) Qty: 10 RF: 0 insulin lispro [Humalog U-100 Insulin] 100 unit/mL Solution See Protocol unit SUBCUT ACHS Qty: 10 RF: 0 clindamycin HCl 300 mg capsule 600 mg PO Q8H 21 Days Qty: 126 RF: 0 Continued insulin lispro [Humalog U-100 Insulin] 1 UNIT/0.01 ML solution 1 unit SQ DAILY RF: 0 Lantus U-100 Insulin 1 UNIT/0.01 ML solution 30 unit SQ DAILY RF: 0 Lantus U-100 Insulin 1 UNIT/0.01 ML solution 45 unit SQ HS RF: 0 gabapentin 100 mg Capsule 100 mg PO TID RF: 0 Follow Up Plan Follow up with: Janine Montez ARNP [Primary Care Provider] - Patient Disposition: Home, Self-Care Rehab Potential: Good I certify that the patient requires SNF services: No Overall status at discharge: patient is progressing back to baseline Discharge Orders: Discharge Order (Routine); Ordered 03/23/21 Ordered By: Lyndon ABURTO VTE Deep Vein Thrombosis/Pulmonary Embolism Present on Admission: No
== END 2021-03-23 15:15 | disposition home or self-care (01) | DRG 572 ==
LOC: MEDSUR 22:23 → ED 22:23 → MEDSUR 03-15 01:31
PROVIDERS: ADMIT Internal Medicine; ATTEND Internal Medicine

== ENCOUNTER 2023-09-17 12:19 | Inpatient (IN) ==
[2023-09-17] MEDS ORDERED: IOPAMIDOL 100 ML BOTTLE IV ONE (12:20)
[2023-09-17] MEDS ORDERED: KETOROLAC 15 MG/ML VIAL IV ONE (12:48)
[2023-09-17] MEDS ORDERED: ONDANSETRON 4 MG/2 ML VIAL IV ONE ×2 (12:49→19:44)
[2023-09-17 13:35] LABS: Basophils # (Auto) 0.05 K/mcL (0.00-0.30); Basophils % (Auto) 0.4 % (0.0-2.0); Eosinophils # (Auto) 0.12 K/mcL (0.00-0.70); Eosinophils % (Auto) 0.9 % (0.0-7.0); Hemoglobin 11.3 g/dL (13.7-17.5); Lymphocytes # (Auto) 2.29 K/mcL (1.50-4.80); Lymphocytes % (Auto) 16.7 % (15.5-49.0); Mean Cell Volume 82.3 fL (80.0-100.0); Mean Corpuscular HGB Conc 33.2 g/dL (31.0-36.0); Mean Platelet Volume 9.8 fL (8.8-12.5); Monocytes # (Auto) 1.54 K/mcL (0.10-0.90); Monocytes % (Auto) 11.2 % (1.0-12.0); Neutrophils % (Auto) 69.9 % (38.0-78.0); Platelet Count 309 K/mcL (140-440); RBC 4.13 M/mcL (4.63-6.08); Red Cell Distribution Width 14.2 % (11.5-14.5); WBC 13.7 K/mcL (4.5-11.0)
[2023-09-17 13:49] LABS: ALT/SGPT 10 U/L (<40); AST/SGOT 8 U/L (<40); Albumin 2.2 gm/dL (3.2-5.2); Alkaline Phosphatase 88 U/L (39-117); Bilirubin,Direct < 0.2 mg/dL (0-0.3); Bilirubin,Total 0.2 mg/dL (0.1-1.0); Globulin 3.2 gm/dL (2.2-3.7)
[2023-09-17] MEDS: HYDROmorphone 0.5 MG/0.5 ML SYRINGE IV PRN ×7 (13:53→23:23)
[2023-09-17 13:54] LABS: POC Calcium, Ionized 1.04 (1.16-1.32); POC Creatinine 0.9 (0.6-1.2); POC Potassium 4.5 (3.3-5.1)
[2023-09-17] MEDS ORDERED: PIPERACILLIN SODIUM/TAZOBACTAM 3.375 GM in DEXTROSE 5% IN WATER 50 ML IV ONE (15:47)
[2023-09-17] MEDS ORDERED: HYDROcodone/APAP 10/325MG TABLET PO ONE (19:33)
[2023-09-17] MEDS ORDERED: oxyCODONE IR 5 MG TABLET PO PRN ×2 (19:55→20:45)
[2023-09-17] MEDS ORDERED: HYDROmorphone 1 MG/ML SYRINGE IV ONE (19:56)
[2023-09-17] MEDS ORDERED: DEXTROSE 50% 50 ML VIAL IV PRN (20:29)
[2023-09-17] MEDS ORDERED: DEXTROSE 31 GM ORAL.SUSP PO PRN (20:29)
[2023-09-17 20:30] LABS: Prothrombin Time 13.1 sec (11.9-14.5)
[2023-09-17] MEDS ORDERED: INSULIN GLARGINE, HUMAN 1 UNIT/0.01 ML SQ SCH (21:00)
[2023-09-17] MEDS ORDERED: oxyCODONE ER 20 MG TAB.ER.12H PO SCH (21:00)
[2023-09-17] MEDS: oxyCODONE IR 5 MG TABLET PO SCH ×2 (21:08→23:55)
[2023-09-17] MEDS: INSULIN LISPRO 1 UNIT/0.01 ML UNIT SQ SCH (21:08)
[2023-09-17] MEDS: DEXTROSE 5%-LR 1,000 ML IV SCH (21:09)
[2023-09-17] MEDS: PIPERACILLIN SODIUM/TAZOBACTAM 3.375 GM in DEXTROSE 5% IN WATER 100 ML IV SCH (21:47)
[2023-09-18 00:32] LABS: Hemoglobin A1C 10.1 % Hgb (4.0-6.0)
[2023-09-18] MEDS ORDERED: ONDANSETRON 4 MG/2 ML VIAL ONE ×3 (01:13→10:45)
[2023-09-18] MEDS: ONDANSETRON 4 MG/2 ML VIAL IV PRN ×3 (01:15→16:48)
[2023-09-18] MEDS: HYDROmorphone 0.5 MG/0.5 ML SYRINGE IV PRN ×6 (01:38→20:29)
[2023-09-18] MEDS: INSULIN LISPRO 1 UNIT/0.01 ML UNIT SQ SCH ×5 (02:38→20:47)
[2023-09-18] MEDS: oxyCODONE IR 5 MG TABLET PO SCH ×5 (02:48→15:08)
[2023-09-18] MEDS: PIPERACILLIN SODIUM/TAZOBACTAM 3.375 GM in DEXTROSE 5% IN WATER 100 ML IV SCH ×3 (03:55→21:57)
[2023-09-18] MEDS: DEXTROSE 5%-LR 1,000 ML IV SCH (05:36)
[2023-09-18 06:51] LABS: ALT/SGPT 38 U/L (<40); AST/SGOT 42 U/L (<40); Albumin/Globulin Ratio 0.6 (1.0-2.3); Alkaline Phosphatase 209 U/L (39-117); Bilirubin,Total 0.4 mg/dL (0.1-1.0); Blood Urea Nitrogen 13 mg/dL (6-20); Calcium 7.8 mg/dL (8.6-10.4); Carbon Dioxide 20 mmol/L (22-30); Chloride 98 mmol/L (96-108); Globulin 3.4 gm/dL (2.2-3.7); Glomerular Filtration Rate 96; Glucose 259 mg/dL (70-105)
[2023-09-18 07:26] LABS: Basophils # (Auto) 0.05 K/mcL (0.00-0.30); Basophils % (Auto) 0.3 % (0.0-2.0); Eosinophils # (Auto) 0.05 K/mcL (0.00-0.70); Eosinophils % (Auto) 0.3 % (0.0-7.0); Hematocrit 34.8 % (40.1-51.0); Hemoglobin 11.1 g/dL (13.7-17.5); Lymphocytes # (Auto) 1.88 K/mcL (1.50-4.80); Lymphocytes % (Auto) 10.4 % (15.5-49.0); Mean Cell Volume 84.3 fL (80.0-100.0); Mean Corpuscular HGB Conc 31.9 g/dL (31.0-36.0); Mean Platelet Volume 9.6 fL (8.8-12.5); Monocytes # (Auto) 1.57 K/mcL (0.10-0.90); Monocytes % (Auto) 8.7 % (1.0-12.0); Neutrophils % (Auto) 79.2 % (38.0-78.0); Platelet Count 332 K/mcL (140-440); RBC 4.13 M/mcL (4.63-6.08); Red Cell Distribution Width 14.3 % (11.5-14.5); WBC 18.1 K/mcL (4.5-11.0)
[2023-09-18] MEDS: INSULIN GLARGINE, HUMAN 1 UNIT/0.01 ML SQ SCH ×2 (08:17→20:47)
[2023-09-18 08:37] LABS: Uric Acid 4.5 mg/dL (2.5-8.0)
[2023-09-18] MEDS: LACTATED RINGERS 1,000 ML IV SCH ×2 (08:59→16:47)
[2023-09-18] MEDS ORDERED: SCOPOLAMINE 1 PATCH PATCH TOPICAL PRN (09:00)
[2023-09-18] MEDS ORDERED: IPRATROPIUM/ALBUTEROL 3 ML AMPUL.NEB NEB PRN ×2 (09:00→13:41)
[2023-09-18] MEDS ORDERED: fentaNYL 100 MCG/2 ML VIAL IV ONE ×2 (10:43→14:12)
[2023-09-18] MEDS ORDERED: KETAMINE 50 MG/ML Syringe IV ONE (10:43)
[2023-09-18] MEDS ORDERED: LIDOCAINE 2% PF 5 ML VIAL ONE (10:45)
[2023-09-18] MEDS ORDERED: DEXAMETHASONE 10 MG/ML VIAL ONE (10:45)
[2023-09-18] MEDS ORDERED: ROCURONIUM 10 MG/ML ML IV ONE (10:45)
[2023-09-18] MEDS ORDERED: MAGNESIUM SULFATE 2 GM/50 ML BAG IV ONE (10:45)
[2023-09-18] MEDS ORDERED: PROPOFOL 200 MG/20 ML VIAL IV ONE (10:45)
[2023-09-18] MEDS ORDERED: BUPIVACAINE W/EPI 0.25% 50 ML VIAL IJ ONE (12:00)
[2023-09-18] MEDS ORDERED: ePHEDrine 50 MG/5 ML SYRINGE (ANEST) IV ONE (12:15)
[2023-09-18] MEDS ORDERED: PHENYLephrine 1 MG/10 ML SYRINGE (ANEST) ONE (12:34)
[2023-09-18] MEDS ORDERED: NALOXONE HCL 0.4 MG/ML VIAL IV PRN (13:41)
[2023-09-18] MEDS ORDERED: LACTATED RINGERS 250 ML IV PRN (13:41)
[2023-09-18] MEDS ORDERED: PROMETHAZINE 25 MG/ML VIAL IV PRN (13:41)
[2023-09-18] MEDS ORDERED: MEPERIDINE 25 MG/ML VIAL IV PRN (13:41)
[2023-09-18] MEDS ORDERED: ONDANSETRON 4 MG/2 ML VIAL IV PRN (13:41)
[2023-09-18] MEDS ORDERED: METHOCARBAMOL 1,000 MG/10 ML VIAL IV PRN (13:41)
[2023-09-18] MEDS ORDERED: HYDROmorphone 0.5 MG/0.5 ML SYRINGE IV PRN (13:41)
[2023-09-18] MEDS ORDERED: diphenhydrAMINE 50 MG/ML VIAL IV PRN (13:41)
[2023-09-18] MEDS ORDERED: fentaNYL 100 MCG/2 ML VIAL IV PRN (13:41)
[2023-09-18] MEDS ORDERED: LACTATED RINGERS 1,000 ML IV SCH (13:45)
[2023-09-18] MEDS ORDERED: SUGAMMADEX SODIUM 200 MG/2 ML VIAL IV ONE (14:04)
[2023-09-19] MEDS: HYDROmorphone 0.5 MG/0.5 ML SYRINGE IV PRN ×4 (00:09→12:24)
[2023-09-19] MEDS: LACTATED RINGERS 1,000 ML IV SCH (00:44)
[2023-09-19 02:55] LABS: Osmolality,Urine 476 mOSM/kg (80-1000)
[2023-09-19 02:59] LABS: Sodium, Urine Random 70 mmol/L
[2023-09-19] MEDS: PIPERACILLIN SODIUM/TAZOBACTAM 3.375 GM in DEXTROSE 5% IN WATER 100 ML IV SCH ×3 (05:35→21:54)
[2023-09-19 05:54] LABS: Hematocrit 38.7 % (40.1-51.0); Hemoglobin 12.4 g/dL (13.7-17.5); Mean Cell Volume 84.5 fL (80.0-100.0); Mean Platelet Volume 10.2 fL (8.8-12.5); Platelet Count 464 K/mcL (140-440); RBC 4.58 M/mcL (4.63-6.08); Red Cell Distribution Width 14.5 % (11.5-14.5)
[2023-09-19 06:12] LABS: ALT/SGPT 28 U/L (<40); AST/SGOT 12 U/L (<40); Albumin 2.4 gm/dL (3.2-5.2); Albumin/Globulin Ratio 0.6 (1.0-2.3); Alkaline Phosphatase 193 U/L (39-117); Bilirubin,Direct < 0.2 mg/dL (0-0.3); Bilirubin,Total 0.2 mg/dL (0.1-1.0); Blood Urea Nitrogen 16 mg/dL (6-20); Calcium 8.4 mg/dL (8.6-10.4); Carbon Dioxide 24 mmol/L (22-30); Chloride 95 mmol/L (96-108); Globulin 3.8 gm/dL (2.2-3.7); Glomerular Filtration Rate 61; Glucose 286 mg/dL (70-105); Lactate Dehydrogenase 207 U/L (135-225); Phosphorous 3.6 mg/dL (2.5-4.5); Triglycerides 170 mg/dL (<150)
[2023-09-19] MEDS ORDERED: LACTATED RINGERS 1,000 ML IV SCH (07:51)
[2023-09-19] MEDS: INSULIN LISPRO 1 UNIT/0.01 ML UNIT SQ SCH ×4 (07:57→21:10)
[2023-09-19] MEDS: INSULIN GLARGINE, HUMAN 1 UNIT/0.01 ML SQ SCH ×2 (08:36→21:10)
[2023-09-19] MEDS: GABAPENTIN 100 MG CAPSULE PO SCH ×3 (08:36→21:10)
[2023-09-19] MEDS: FUROSEMIDE 20 MG TABLET PO SCH (08:37)
[2023-09-19] MEDS ORDERED: SODIUM CHLORIDE 1 GM TABLET PO ONE (09:22)
[2023-09-19] MEDS: oxyCODONE IR 5 MG TABLET PO PRN ×2 (14:27→22:09)
[2023-09-19] MEDS: CALCIUM CARBONATE 500 MG TAB.CHEW CHEWED PRN (22:36)
[2023-09-20] MEDS: oxyCODONE IR 5 MG TABLET PO PRN ×5 (03:34→18:53)
[2023-09-20] MEDS: PIPERACILLIN SODIUM/TAZOBACTAM 3.375 GM in DEXTROSE 5% IN WATER 100 ML IV SCH ×3 (05:58→21:54)
[2023-09-20] MEDS: INSULIN LISPRO 1 UNIT/0.01 ML UNIT SQ SCH ×4 (06:49→20:11)
[2023-09-20] MEDS: CALCIUM CARBONATE 500 MG TAB.CHEW CHEWED PRN ×3 (07:07→19:12)
[2023-09-20 07:28] LABS: Hematocrit 35.4 % (40.1-51.0); Hemoglobin 10.9 g/dL (13.7-17.5); Mean Cell Volume 88.3 fL (80.0-100.0); Mean Corpuscular HGB Conc 30.8 g/dL (31.0-36.0); Mean Platelet Volume 9.3 fL (8.8-12.5); Platelet Count 402 K/mcL (140-440); RBC 4.01 M/mcL (4.63-6.08); Red Cell Distribution Width 14.7 % (11.5-14.5)
[2023-09-20 07:51] LABS: ALT/SGPT 15 U/L (<40); AST/SGOT 6 U/L (<40); Albumin 1.8 gm/dL (3.2-5.2); Albumin/Globulin Ratio 0.5 (1.0-2.3); Alkaline Phosphatase 122 U/L (39-117); Bilirubin,Total < 0.2 mg/dL (0.1-1.0); Blood Urea Nitrogen 13 mg/dL (6-20); Calcium 7.8 mg/dL (8.6-10.4); Carbon Dioxide 24 mmol/L (22-30); Chloride 100 mmol/L (96-108); Globulin 3.3 gm/dL (2.2-3.7); Glomerular Filtration Rate 75; Glucose 76 mg/dL (70-105)
[2023-09-20] MEDS: INSULIN GLARGINE, HUMAN 1 UNIT/0.01 ML SQ SCH ×2 (08:41→20:11)
[2023-09-20] MEDS: GABAPENTIN 100 MG CAPSULE PO SCH ×3 (08:42→20:14)
[2023-09-20] MEDS: FUROSEMIDE 20 MG TABLET PO SCH (08:42)
[2023-09-20] MEDS ORDERED: FUROSEMIDE 40 MG/4 ML VIAL IV SCH (14:22)
[2023-09-20] MEDS: ONDANSETRON 4 MG/2 ML VIAL IV PRN (20:56)
== END 2023-09-20 21:53 | disposition short-term general hospital (02) | DRG 409 ==
LOC: ICU 12:19 → ED 12:19 → ICU 20:25 → MEDSUR 09-19 21:46
PROVIDERS: ADMIT Surgery Surgical Critical Care; ATTEND Surgery Surgical Critical Care

== ENCOUNTER 2023-09-25 01:45 | Observation (INO) ==
[2023-09-25] MEDS ORDERED: IOPAMIDOL 100 ML BOTTLE IV ONE (01:46)
[2023-09-25] MEDS ORDERED: 0.9 % SODIUM CHLORIDE 1,000 ML IV ONE (01:53)
[2023-09-25] MEDS ORDERED: ONDANSETRON 4 MG/2 ML VIAL IV ONE (01:53)
[2023-09-25] MEDS ORDERED: fentaNYL 100 MCG/2 ML VIAL IV ONE ×2 (01:53→05:24)
[2023-09-25 02:08] LABS: POC Calcium, Ionized 1.07 (1.16-1.32); POC Creatinine 1.2 (0.6-1.2); POC Potassium 4.4 (3.3-5.1)
[2023-09-25 02:32] LABS: Basophils # (Auto) 0.03 K/mcL (0.00-0.30); Basophils % (Auto) 0.3 % (0.0-2.0); Eosinophils # (Auto) 0.27 K/mcL (0.00-0.70); Eosinophils % (Auto) 2.5 % (0.0-7.0); Hematocrit 33.3 % (40.1-51.0); Hemoglobin 10.5 g/dL (13.7-17.5); Lymphocytes % (Auto) 26.4 % (15.5-49.0); Mean Cell Volume 85.6 fL (80.0-100.0); Mean Corpuscular HGB Conc 31.5 g/dL (31.0-36.0); Mean Platelet Volume 8.8 fL (8.8-12.5); Monocytes # (Auto) 0.68 K/mcL (0.10-0.90); Monocytes % (Auto) 6.4 % (1.0-12.0); Neutrophils % (Auto) 63.5 % (38.0-78.0); Platelet Count 428 K/mcL (140-440); RBC 3.89 M/mcL (4.63-6.08); Red Cell Distribution Width 14.3 % (11.5-14.5); WBC 10.6 K/mcL (4.5-11.0)
[2023-09-25] MEDS ORDERED: morphine 4 MG/ML VIAL IV ONE (03:21)
[2023-09-25 03:47] LABS: Appearance,Urine CLEAR (Clear); Bilirubin,Urine Negative (Negative); Color,Urine YELLOW; Culture Indicated,Urine No; Glucose,Urine (UA) 150 mg/dL (Negative); Ketones,Urine Negative (Negative); Leukocyte Esterase,Urine Negative /uL (Negative); Mucus,Urine FEW /hpf; Nitrate,Urine Negative (Negative); Protein,Urine >=500 mg/dL (Negative); Specific Gravity,Urine 1.016 (1.000-1.035); Urine Blood Negative (Negative); Urine Hyaline Cast 1 /lph (0-2); Urine RBC 2 /hpf (0-3); Urine Squamous Epithelial Cell 1 /hpf (0-4); Urine WBC 1 /hpf (0-4); Urobilinogen,Urine Negative
[2023-09-25 04:29] LABS: proBNP 774.1 pg/mL (<125.0)
[2023-09-25 05:50] LABS: ALT/SGPT 10 U/L (<40); AST/SGOT 7 U/L (<40); Albumin 2.5 gm/dL (3.2-5.2); Alkaline Phosphatase 95 U/L (39-117); Amylase 28 U/L (28-100); Bilirubin,Direct < 0.2 mg/dL (0-0.3); Bilirubin,Total < 0.2 mg/dL (0.1-1.0); Globulin 2.3 gm/dL (2.2-3.7)
[2023-09-25] MEDS ORDERED: PIPERACILLIN SODIUM/TAZOBACTAM 3.375 GM in DEXTROSE 5% IN WATER 100 ML IV SCH (07:15)
[2023-09-25] MEDS ORDERED: DEXTROSE 5%-1/2NS W/20MEQ KCL 1,000 ML IV SCH (07:15)
[2023-09-25] MEDS: PANTOPRAZOLE 40 MG VIAL IV SCH (07:48)
[2023-09-25] MEDS: PIPERACILLIN SODIUM/TAZOBACTAM 3.375 GM in DEXTROSE 5% IN WATER 50 ML IV SCH ×2 (07:48→09:29)
[2023-09-25] MEDS: ONDANSETRON 4 MG/2 ML VIAL IV PRN ×2 (09:13→21:51)
[2023-09-25] MEDS: HYDROmorphone 0.5 MG/0.5 ML SYRINGE IV PRN (09:15)
[2023-09-25] MEDS: DEXTROSE 5%-1/2NS 1,000 ML IV SCH ×2 (10:21→17:54)
[2023-09-25] MEDS: oxyCODONE IR 5 MG TABLET PO PRN ×3 (10:21→18:44)
[2023-09-25] MEDS ORDERED: INSULIN LISPRO 1 UNIT/0.01 ML UNIT SQ SCH (12:00)
[2023-09-25] MEDS ORDERED: DEXTROSE 31 GM ORAL.SUSP PO PRN ×2 (12:51→13:12)
[2023-09-25] MEDS ORDERED: DEXTROSE 50% 50 ML VIAL IV PRN ×2 (12:51→13:12)
[2023-09-25] MEDS: INSULIN LISPRO 1 UNIT/0.01 ML UNIT SQ SCH ×2 (13:32→16:44)
[2023-09-25] MEDS: PIPERACILLIN SODIUM/TAZOBACTAM 3.375 GM in DEXTROSE 5% IN WATER 100 ML IV SCH ×2 (14:18→22:05)
[2023-09-25] MEDS: LACTULOSE 20 GM/30 ML ORAL.SOL PO SCH (21:09)
[2023-09-25] MEDS: INSULIN GLARGINE, HUMAN 1 UNIT/0.01 ML SQ SCH (21:56)
[2023-09-26] MEDS: INSULIN LISPRO 1 UNIT/0.01 ML UNIT SQ SCH ×4 (00:08→16:39)
[2023-09-26] MEDS: HYDROmorphone 0.5 MG/0.5 ML SYRINGE IV PRN (00:43)
[2023-09-26] MEDS: DEXTROSE 5%-1/2NS 1,000 ML IV SCH ×2 (02:01→13:22)
[2023-09-26] MEDS: ONDANSETRON 4 MG/2 ML VIAL IV PRN (03:39)
[2023-09-26] MEDS: PIPERACILLIN SODIUM/TAZOBACTAM 3.375 GM in DEXTROSE 5% IN WATER 100 ML IV SCH ×3 (05:51→20:54)
[2023-09-26] MEDS: oxyCODONE IR 5 MG TABLET PO PRN ×2 (06:05→13:22)
[2023-09-26 06:55] LABS: Hematocrit 32.9 % (40.1-51.0); Hemoglobin 10.2 g/dL (13.7-17.5); Mean Cell Volume 85.7 fL (80.0-100.0); Mean Platelet Volume 8.9 fL (8.8-12.5); Platelet Count 400 K/mcL (140-440); RBC 3.84 M/mcL (4.63-6.08); Red Cell Distribution Width 14.1 % (11.5-14.5); WBC 10.5 K/mcL (4.5-11.0)
[2023-09-26] MEDS: METOCLOPRAMIDE 10 MG/2 ML VIAL IV SCH ×3 (06:58→16:35)
[2023-09-26] MEDS: PANTOPRAZOLE 40 MG VIAL IV SCH (06:58)
[2023-09-26 07:27] LABS: ALT/SGPT 14 U/L (<40); AST/SGOT 13 U/L (<40); Albumin 2.3 gm/dL (3.2-5.2); Albumin/Globulin Ratio 0.7 (1.0-2.3); Alkaline Phosphatase 93 U/L (39-117); Bilirubin,Total < 0.2 mg/dL (0.1-1.0); Blood Urea Nitrogen 11 mg/dL (6-20); Calcium 8.1 mg/dL (8.6-10.4); Carbon Dioxide 23 mmol/L (22-30); Chloride 100 mmol/L (96-108); Globulin 3.1 gm/dL (2.2-3.7); Glomerular Filtration Rate 95; Glucose 136 mg/dL (70-105)
[2023-09-26] MEDS: INSULIN GLARGINE, HUMAN 1 UNIT/0.01 ML SQ SCH ×2 (08:32→21:46)
[2023-09-26] MEDS: LACTULOSE 20 GM/30 ML ORAL.SOL PO SCH ×2 (10:04→21:35)
[2023-09-26] MEDS ORDERED: ACETAMINOPHEN 325 MG TABLET PO PRN (18:52)
[2023-09-26] MEDS: GABAPENTIN 300 MG CAPSULE PO SCH (21:34)
[2023-09-27] MEDS: INSULIN LISPRO 1 UNIT/0.01 ML UNIT SQ SCH ×4 (00:18→17:52)
[2023-09-27] MEDS: DEXTROSE 5%-1/2NS 1,000 ML IV SCH (00:19)
[2023-09-27] MEDS: oxyCODONE IR 5 MG TABLET PO PRN ×4 (02:43→17:59)
[2023-09-27] MEDS: PIPERACILLIN SODIUM/TAZOBACTAM 3.375 GM in DEXTROSE 5% IN WATER 100 ML IV SCH (05:34)
[2023-09-27 06:41] LABS: Hematocrit 34.8 % (40.1-51.0); Hemoglobin 10.8 g/dL (13.7-17.5); Mean Cell Volume 85.5 fL (80.0-100.0); Platelet Count 388 K/mcL (140-440); RBC 4.07 M/mcL (4.63-6.08); Red Cell Distribution Width 13.9 % (11.5-14.5); WBC 7.6 K/mcL (4.5-11.0)
[2023-09-27 07:14] LABS: ALT/SGPT 15 U/L (<40); AST/SGOT 13 U/L (<40); Albumin 2.2 gm/dL (3.2-5.2); Albumin/Globulin Ratio 0.6 (1.0-2.3); Alkaline Phosphatase 101 U/L (39-117); Bilirubin,Total < 0.2 mg/dL (0.1-1.0); Blood Urea Nitrogen 9 mg/dL (6-20); Calcium 8.4 mg/dL (8.6-10.4); Carbon Dioxide 27 mmol/L (22-30); Chloride 103 mmol/L (96-108); Globulin 3.4 gm/dL (2.2-3.7); Glomerular Filtration Rate 84; Glucose 103 mg/dL (70-105)
[2023-09-27] MEDS ORDERED: PANTOPRAZOLE 40 MG TABLET PO SCH (07:30)
[2023-09-27] MEDS ORDERED: ONDANSETRON 4 MG ODT TABLET SL PRN (08:42)
[2023-09-27] MEDS: METOCLOPRAMIDE 10 MG/2 ML VIAL IV SCH (08:47)
[2023-09-27] MEDS: PANTOPRAZOLE 40 MG VIAL IV SCH (08:47)
[2023-09-27] MEDS: INSULIN GLARGINE, HUMAN 1 UNIT/0.01 ML SQ SCH (08:57)
[2023-09-27] MEDS: AMOXICILLIN/POTASSIUM CLAV 875 MG TABLET PO SCH ×2 (08:57→17:52)
[2023-09-27] MEDS: GABAPENTIN 300 MG CAPSULE PO SCH ×2 (08:57→16:01)
[2023-09-27] MEDS: METOCLOPRAMIDE 10 MG TABLET PO SCH ×3 (08:58→17:52)
[2023-09-27] MEDS: LACTULOSE 20 GM/30 ML ORAL.SOL PO SCH (11:02)
[2023-09-27] MEDS ORDERED: FUROSEMIDE 40 MG/4 ML VIAL IV ONE (13:13)
[2023-09-27] MEDS ORDERED: ALBUMIN HUMAN 12.5 GM/50 ML VIAL IV ONE (13:13)
[2023-09-27] MEDS ORDERED: FUROSEMIDE 80 MG TABLET PO ONE (14:52)
[2023-09-28] MEDS ORDERED: FUROSEMIDE 20 MG TABLET PO SCH (09:00)
== END 2023-09-27 18:45 | disposition home or self-care (01) ==
LOC: MEDSUR 01:45 → ED 01:45 → MEDSUR 09:51
PROVIDERS: ADMIT Surgery Surgical Critical Care; ATTEND Family Medicine Adult Medicine

== ENCOUNTER 2023-09-29 11:32 | Inpatient (IN) ==
[2023-09-29] MEDS ORDERED: IOPAMIDOL 100 ML BOTTLE IV ONE (11:33)
[2023-09-29] MEDS ORDERED: ONDANSETRON 4 MG/2 ML VIAL IV ONE ×2 (12:05→14:42)
[2023-09-29] MEDS ORDERED: ACETAMINOPHEN 500 MG TABLET PO ONE (12:05)
[2023-09-29] MEDS ORDERED: 0.9 % SODIUM CHLORIDE 1,000 ML IV ONE (12:05)
[2023-09-29] MEDS ORDERED: morphine 4 MG/ML VIAL IV ONE (12:05)
[2023-09-29 12:17] LABS: POC Calcium, Ionized 1.09 (1.16-1.32); POC Potassium 4.2 (3.3-5.1)
[2023-09-29 13:01] LABS: Basophils # (Auto) 0.03 K/mcL (0.00-0.30); Basophils % (Auto) 0.3 % (0.0-2.0); Eosinophils # (Auto) 0.02 K/mcL (0.00-0.70); Eosinophils % (Auto) 0.2 % (0.0-7.0); Hematocrit 34.1 % (40.1-51.0); Hemoglobin 10.9 g/dL (13.7-17.5); Lymphocytes # (Auto) 1.52 K/mcL (1.50-4.80); Lymphocytes % (Auto) 13.6 % (15.5-49.0); Mean Cell Volume 83.4 fL (80.0-100.0); Mean Platelet Volume 9.6 fL (8.8-12.5); Monocytes # (Auto) 0.61 K/mcL (0.10-0.90); Monocytes % (Auto) 5.5 % (1.0-12.0); Platelet Count 390 K/mcL (140-440); RBC 4.09 M/mcL (4.63-6.08); Red Cell Distribution Width 14.1 % (11.5-14.5); WBC 11.2 K/mcL (4.5-11.0)
[2023-09-29 15:43] LABS: ALT/SGPT 10 U/L (<40); AST/SGOT 11 U/L (<40); Albumin 2.8 gm/dL (3.2-5.2); Alkaline Phosphatase 103 U/L (39-117); Bilirubin,Direct < 0.2 mg/dL (0-0.3); Bilirubin,Total < 0.2 mg/dL (0.1-1.0); Globulin 3.5 gm/dL (2.2-3.7)
[2023-09-29] MEDS ORDERED: DEXTROSE 50% 50 ML VIAL IV PRN (16:35)
[2023-09-29] MEDS ORDERED: DEXTROSE 31 GM ORAL.SUSP PO PRN (16:35)
[2023-09-29] MEDS ORDERED: METOCLOPRAMIDE 10 MG/2 ML VIAL IV ONE (18:12)
[2023-09-29] MEDS: INSULIN LISPRO 1 UNIT/0.01 ML UNIT SQ SCH ×2 (21:07→21:08)
[2023-09-29] MEDS: GABAPENTIN 300 MG CAPSULE PO SCH (21:08)
[2023-09-29] MEDS: PIPERACILLIN SODIUM/TAZOBACTAM 3.375 GM in DEXTROSE 5% IN WATER 100 ML IV SCH (21:20)
[2023-09-29] MEDS ORDERED: OXYBUTYNIN CHLORIDE 5 MG TABLET PO ONE (21:23)
[2023-09-29] MEDS: fentaNYL 100 MCG/2 ML VIAL IV PRN (21:48)
[2023-09-29] MEDS: INSULIN GLARGINE, HUMAN 1 UNIT/0.01 ML SQ SCH (22:25)
[2023-09-30] MEDS: fentaNYL 100 MCG/2 ML VIAL IV PRN ×2 (06:08→20:27)
[2023-09-30 06:44] LABS: Basophils # (Auto) 0.05 K/mcL (0.00-0.30); Basophils % (Auto) 0.6 % (0.0-2.0); Eosinophils # (Auto) 0.04 K/mcL (0.00-0.70); Eosinophils % (Auto) 0.5 % (0.0-7.0); Hematocrit 33.9 % (40.1-51.0); Hemoglobin 10.3 g/dL (13.7-17.5); Lymphocytes # (Auto) 1.84 K/mcL (1.50-4.80); Lymphocytes % (Auto) 21.8 % (15.5-49.0); Mean Cell Volume 85.8 fL (80.0-100.0); Mean Corpuscular HGB Conc 30.4 g/dL (31.0-36.0); Mean Platelet Volume 9.3 fL (8.8-12.5); Monocytes # (Auto) 0.75 K/mcL (0.10-0.90); Monocytes % (Auto) 8.9 % (1.0-12.0); Neutrophils % (Auto) 67.7 % (38.0-78.0); Platelet Count 425 K/mcL (140-440); RBC 3.95 M/mcL (4.63-6.08); Red Cell Distribution Width 14.2 % (11.5-14.5); WBC 8.5 K/mcL (4.5-11.0)
[2023-09-30 07:45] LABS: ALT/SGPT 7 U/L (<40); AST/SGOT 7 U/L (<40); Albumin 2.7 gm/dL (3.2-5.2); Albumin/Globulin Ratio 0.9 (1.0-2.3); Alkaline Phosphatase 91 U/L (39-117); Bilirubin,Direct < 0.2 mg/dL (0-0.3); Bilirubin,Total < 0.2 mg/dL (0.1-1.0); Blood Urea Nitrogen 11 mg/dL (6-20); Calcium 8.4 mg/dL (8.6-10.4); Carbon Dioxide 26 mmol/L (22-30); Chloride 97 mmol/L (96-108); Globulin 3.1 gm/dL (2.2-3.7); Glomerular Filtration Rate 84; Glucose 162 mg/dL (70-105); Lactate Dehydrogenase 165 U/L (135-225); Phosphorous 3.9 mg/dL (2.5-4.5); Triglycerides 196 mg/dL (<150); Uric Acid 5.2 mg/dL (2.5-8.0)
[2023-09-30] MEDS: PIPERACILLIN SODIUM/TAZOBACTAM 3.375 GM in DEXTROSE 5% IN WATER 100 ML IV SCH ×3 (08:01→21:42)
[2023-09-30] MEDS: amLODIPine 5 MG TABLET PO SCH (09:25)
[2023-09-30] MEDS: GABAPENTIN 300 MG CAPSULE PO SCH ×3 (09:26→20:26)
[2023-09-30] MEDS: INSULIN GLARGINE, HUMAN 1 UNIT/0.01 ML SQ SCH ×2 (09:26→20:26)
[2023-09-30] MEDS: INSULIN LISPRO 1 UNIT/0.01 ML UNIT SQ SCH ×4 (09:26→20:26)
[2023-09-30] MEDS: ENALAPRILAT 1.25 MG/ML VIAL IV PRN ×2 (10:43→13:16)
[2023-09-30] MEDS: ONDANSETRON 4 MG/2 ML VIAL IV PRN ×2 (14:12→20:34)
[2023-09-30] MEDS: oxyCODONE IR 5 MG TABLET PO PRN (14:13)
[2023-10-01] MEDS: fentaNYL 100 MCG/2 ML VIAL IV PRN ×2 (04:10→20:34)
[2023-10-01] MEDS: ONDANSETRON 4 MG/2 ML VIAL IV PRN (04:10)
[2023-10-01] MEDS: PIPERACILLIN SODIUM/TAZOBACTAM 3.375 GM in DEXTROSE 5% IN WATER 100 ML IV SCH ×3 (05:44→22:51)
[2023-10-01] MEDS: oxyCODONE IR 5 MG TABLET PO PRN ×3 (06:51→17:40)
[2023-10-01 07:05] LABS: Basophils # (Auto) 0.06 K/mcL (0.00-0.30); Basophils % (Auto) 0.6 % (0.0-2.0); Eosinophils # (Auto) 0.19 K/mcL (0.00-0.70); Hematocrit 32.8 % (40.1-51.0); Hemoglobin 10.3 g/dL (13.7-17.5); Lymphocytes # (Auto) 2.52 K/mcL (1.50-4.80); Lymphocytes % (Auto) 26.9 % (15.5-49.0); Mean Cell Volume 84.8 fL (80.0-100.0); Mean Corpuscular HGB Conc 31.4 g/dL (31.0-36.0); Mean Platelet Volume 9.3 fL (8.8-12.5); Monocytes % (Auto) 10.7 % (1.0-12.0); Neutrophils % (Auto) 59.2 % (38.0-78.0); Platelet Count 409 K/mcL (140-440); RBC 3.87 M/mcL (4.63-6.08); Red Cell Distribution Width 14.4 % (11.5-14.5); WBC 9.4 K/mcL (4.5-11.0)
[2023-10-01] MEDS: INSULIN GLARGINE, HUMAN 1 UNIT/0.01 ML SQ SCH ×3 (08:26→20:34)
[2023-10-01] MEDS: INSULIN LISPRO 1 UNIT/0.01 ML UNIT SQ SCH ×4 (08:27→20:34)
[2023-10-01] MEDS: amLODIPine 5 MG TABLET PO SCH (08:27)
[2023-10-01] MEDS: GABAPENTIN 300 MG CAPSULE PO SCH ×3 (08:27→20:33)
[2023-10-01 08:39] LABS: ALT/SGPT 7 U/L (<40); AST/SGOT 8 U/L (<40); Albumin 2.3 gm/dL (3.2-5.2); Albumin/Globulin Ratio 0.7 (1.0-2.3); Alkaline Phosphatase 85 U/L (39-117); Bilirubin,Direct < 0.2 mg/dL (0-0.3); Bilirubin,Total < 0.2 mg/dL (0.1-1.0); Blood Urea Nitrogen 16 mg/dL (6-20); Carbon Dioxide 26 mmol/L (22-30); Chloride 99 mmol/L (96-108); Globulin 3.1 gm/dL (2.2-3.7); Glomerular Filtration Rate 75; Glucose 183 mg/dL (70-105); Lactate Dehydrogenase 153 U/L (135-225); Phosphorous 3.5 mg/dL (2.5-4.5); Triglycerides 226 mg/dL (<150); Uric Acid 4.6 mg/dL (2.5-8.0)
[2023-10-02] MEDS: oxyCODONE IR 5 MG TABLET PO PRN ×5 (03:09→23:59)
[2023-10-02] MEDS: PIPERACILLIN SODIUM/TAZOBACTAM 3.375 GM in DEXTROSE 5% IN WATER 100 ML IV SCH ×3 (06:10→22:03)
[2023-10-02] MEDS: INSULIN LISPRO 1 UNIT/0.01 ML UNIT SQ SCH ×4 (07:48→20:54)
[2023-10-02] MEDS: ONDANSETRON 4 MG/2 ML VIAL IV PRN ×2 (07:55→16:53)
[2023-10-02] MEDS: FLUTICASONE PROPIONATE SPRAY.NAS NS SCH (08:58)
[2023-10-02] MEDS: amLODIPine 5 MG TABLET PO SCH (08:59)
[2023-10-02] MEDS: INSULIN GLARGINE, HUMAN 1 UNIT/0.01 ML SQ SCH ×2 (08:59→20:53)
[2023-10-02] MEDS: GABAPENTIN 300 MG CAPSULE PO SCH ×3 (08:59→20:54)
[2023-10-02] MEDS: fentaNYL 100 MCG/2 ML VIAL IV PRN (16:54)
[2023-10-03] MEDS: fentaNYL 100 MCG/2 ML VIAL IV PRN ×3 (02:47→21:48)
[2023-10-03] MEDS: oxyCODONE IR 5 MG TABLET PO PRN ×5 (04:12→23:23)
[2023-10-03] MEDS: PIPERACILLIN SODIUM/TAZOBACTAM 3.375 GM in DEXTROSE 5% IN WATER 100 ML IV SCH ×3 (05:19→21:48)
[2023-10-03] MEDS: ONDANSETRON 4 MG/2 ML VIAL IV PRN ×3 (06:12→23:23)
[2023-10-03 06:51] LABS: ALT/SGPT 7 U/L (<40); AST/SGOT 11 U/L (<40); Albumin 2.6 gm/dL (3.2-5.2); Albumin/Globulin Ratio 0.8 (1.0-2.3); Alkaline Phosphatase 85 U/L (39-117); Anion Gap 11.6 (8.0-16.0); Bilirubin,Total < 0.2 mg/dL (0.1-1.0); Blood Urea Nitrogen 22 mg/dL (6-20); Calcium 8.7 mg/dL (8.6-10.4); Carbon Dioxide 23 mmol/L (22-30); Chloride 100 mmol/L (96-108); Globulin 3.4 gm/dL (2.2-3.7); Glomerular Filtration Rate 67; Glucose 200 mg/dL (70-105)
[2023-10-03 07:32] LABS: Hematocrit 34.1 % (40.1-51.0); Hemoglobin 10.5 g/dL (13.7-17.5); Mean Cell Volume 86.5 fL (80.0-100.0); Mean Corpuscular HGB Conc 30.8 g/dL (31.0-36.0); Mean Platelet Volume 9.2 fL (8.8-12.5); Platelet Count 481 K/mcL (140-440); RBC 3.94 M/mcL (4.63-6.08); Red Cell Distribution Width 14.5 % (11.5-14.5); WBC 9.3 K/mcL (4.5-11.0)
[2023-10-03] MEDS ORDERED: FUROSEMIDE 100 MG/10 ML VIAL IV SCH (08:20)
[2023-10-03] MEDS: INSULIN GLARGINE, HUMAN 1 UNIT/0.01 ML SQ SCH ×2 (08:46→21:48)
[2023-10-03] MEDS: INSULIN LISPRO 1 UNIT/0.01 ML UNIT SQ SCH ×4 (08:47→21:49)
[2023-10-03] MEDS: GABAPENTIN 300 MG CAPSULE PO SCH ×3 (08:48→21:48)
[2023-10-03] MEDS: ALBUMIN HUMAN 12.5 GM/50 ML VIAL IV SCH ×2 (08:49→09:44)
[2023-10-03] MEDS: FLUTICASONE PROPIONATE SPRAY.NAS NS SCH (08:50)
[2023-10-03] MEDS ORDERED: FUROSEMIDE 20 MG TABLET PO SCH (09:00)
[2023-10-03] MEDS: LISINOPRIL 20 MG TABLET PO SCH (09:12)
[2023-10-03] MEDS ORDERED: FUROSEMIDE 40 MG/4 ML VIAL IV SCH (15:00)
[2023-10-04] MEDS: oxyCODONE IR 5 MG TABLET PO PRN ×3 (03:10→19:08)
[2023-10-04] MEDS: ONDANSETRON 4 MG/2 ML VIAL IV PRN (03:13)
[2023-10-04] MEDS: PIPERACILLIN SODIUM/TAZOBACTAM 3.375 GM in DEXTROSE 5% IN WATER 100 ML IV SCH (05:02)
[2023-10-04 06:35] LABS: Hematocrit 35.8 % (40.1-51.0); Hemoglobin 11.2 g/dL (13.7-17.5); Mean Cell Volume 87.1 fL (80.0-100.0); Mean Corpuscular HGB Conc 31.3 g/dL (31.0-36.0); Platelet Count 469 K/mcL (140-440); RBC 4.11 M/mcL (4.63-6.08); Red Cell Distribution Width 14.5 % (11.5-14.5); WBC 10.2 K/mcL (4.5-11.0)
[2023-10-04 06:42] LABS: ALT/SGPT 7 U/L (<40); AST/SGOT 12 U/L (<40); Albumin 2.9 gm/dL (3.2-5.2); Albumin/Globulin Ratio 0.8 (1.0-2.3); Alkaline Phosphatase 85 U/L (39-117); Anion Gap 11.5 (8.0-16.0); Bilirubin,Total < 0.2 mg/dL (0.1-1.0); Blood Urea Nitrogen 29 mg/dL (6-20); Calcium 8.9 mg/dL (8.6-10.4); Carbon Dioxide 26 mmol/L (22-30); Chloride 100 mmol/L (96-108); Globulin 3.4 gm/dL (2.2-3.7); Glomerular Filtration Rate 60; Glucose 198 mg/dL (70-105)
[2023-10-04] MEDS ORDERED: INSULIN GLARGINE, HUMAN 1 UNIT/0.01 ML SQ SCH (09:00)
[2023-10-04] MEDS: INSULIN LISPRO 1 UNIT/0.01 ML UNIT SQ SCH ×4 (09:25→20:59)
[2023-10-04] MEDS: GABAPENTIN 300 MG CAPSULE PO SCH ×3 (09:26→21:19)
[2023-10-04] MEDS: INSULIN GLARGINE, HUMAN 1 UNIT/0.01 ML SQ SCH ×2 (09:26→20:58)
[2023-10-04] MEDS: LISINOPRIL 20 MG TABLET PO SCH (09:26)
[2023-10-04] MEDS: FUROSEMIDE 40 MG/4 ML VIAL IV SCH ×3 (09:26→22:19)
[2023-10-04] MEDS: acetaZOLAMIDE SOD 500 MG VIAL IV SCH ×2 (10:06→11:23)
[2023-10-04] MEDS: FLUTICASONE PROPIONATE SPRAY.NAS NS SCH (10:06)
[2023-10-04] MEDS: AMOXICILLIN/POTASSIUM CLAV 875 MG TABLET PO SCH ×2 (14:23→18:10)
[2023-10-05] MEDS: oxyCODONE IR 5 MG TABLET PO PRN ×3 (02:10→13:39)
[2023-10-05] MEDS: FUROSEMIDE 40 MG/4 ML VIAL IV SCH (06:42)
[2023-10-05 07:08] LABS: Hematocrit 35.5 % (40.1-51.0); Mean Cell Volume 86.6 fL (80.0-100.0); Mean Platelet Volume 9.3 fL (8.8-12.5); Platelet Count 510 K/mcL (140-440); Red Cell Distribution Width 14.4 % (11.5-14.5); WBC 9.6 K/mcL (4.5-11.0)
[2023-10-05 07:48] LABS: Albumin 3.1 gm/dL (3.2-5.2); Anion Gap 13.1 (8.0-16.0); Calcium 8.9 mg/dL (8.6-10.4); Phosphorous 4.8 mg/dL (2.5-4.5)
[2023-10-05] MEDS: INSULIN LISPRO 1 UNIT/0.01 ML UNIT SQ SCH ×2 (09:00→12:46)
[2023-10-05] MEDS: LISINOPRIL 20 MG TABLET PO SCH (09:01)
[2023-10-05] MEDS: AMOXICILLIN/POTASSIUM CLAV 875 MG TABLET PO SCH (09:01)
[2023-10-05] MEDS: INSULIN GLARGINE, HUMAN 1 UNIT/0.01 ML SQ SCH (09:01)
[2023-10-05] MEDS: GABAPENTIN 300 MG CAPSULE PO SCH (09:02)
[2023-10-05] MEDS: FLUTICASONE PROPIONATE SPRAY.NAS NS SCH (09:26)
[2023-10-05] MEDS: acetaZOLAMIDE SOD 500 MG VIAL IV SCH (09:26)
[2023-10-05] MEDS ORDERED: INSULIN GLARGINE, HUMAN 1 UNIT/0.01 ML SQ SCH (21:00)
== END 2023-10-05 13:47 | DRG 641 ==
LOC: ED 11:32 → MEDSUR 18:45
PROVIDERS: ADMIT Family Medicine Adult Medicine; ATTEND Internal Medicine

== ENCOUNTER 2024-04-19 19:45 | Inpatient (IN) ==
[2024-04-19] MEDS ORDERED: IOPAMIDOL 100 ML BOTTLE IV ONE (19:46)
[2024-04-19 20:16] LABS: Basophils # (Auto) 0.02 K/mcL (0.00-0.30); Basophils % (Auto) 0.2 % (0.0-2.0); Eosinophils % (Auto) 1.2 % (0.0-7.0); Hematocrit 30.8 % (40.1-51.0); Hemoglobin 9.8 g/dL (13.7-17.5); Lymphocytes # (Auto) 1.92 K/mcL (1.50-4.80); Lymphocytes % (Auto) 22.3 % (15.5-49.0); Mean Cell Volume 85.6 fL (80.0-100.0); Mean Corpuscular HGB Conc 31.8 g/dL (31.0-36.0); Mean Platelet Volume 8.6 fL (8.8-12.5); Monocytes # (Auto) 0.71 K/mcL (0.10-0.90); Monocytes % (Auto) 8.2 % (1.0-12.0); Neutrophils % (Auto) 67.9 % (38.0-78.0); Platelet Count 332 K/mcL (140-440); Red Cell Distribution Width 14.5 % (11.5-14.5); WBC 8.6 K/mcL (4.5-11.0)
[2024-04-19 20:40] LABS: Prothrombin Time 13.6 sec (11.9-14.5)
[2024-04-19 20:42] LABS: ALT/SGPT 21 U/L (<40); AST/SGOT 22 U/L (<40); Albumin 2.7 gm/dL (3.2-5.2); Albumin/Globulin Ratio 0.8 (1.0-2.3); Alkaline Phosphatase 84 U/L (39-117); Bilirubin,Total < 0.2 mg/dL (0.1-1.0); Blood Urea Nitrogen 30 mg/dL (6-20); Calcium 9.5 mg/dL (8.6-10.4); Carbon Dioxide 25 mmol/L (22-30); Chloride 104 mmol/L (96-108); Globulin 3.4 gm/dL (2.2-3.7); Glomerular Filtration Rate 67; Glucose 162 mg/dL (70-105); Sodium 138 mmol/L (133-145); Thyroid Stimulating Hormone 4.75 uIU/mL (0.27-5.01)
[2024-04-19] MEDS: ONDANSETRON 4 MG/2 ML VIAL IV ONE (20:55)
[2024-04-19] MEDS: fentaNYL 100 MCG/2 ML VIAL IV PRN (20:55)
[2024-04-19] MEDS: PIPERACILLIN SODIUM/TAZOBACTAM 4.5 GM in DEXTROSE 5% IN WATER 50 ML IV ONE (20:55)
[2024-04-19] MEDS: 0.9 % SODIUM CHLORIDE 1,000 ML IV SCH (21:38)
[2024-04-19] MEDS: VANCOMYCIN 2,000 MG in 0.9 % SODIUM CHLORIDE 500 ML IV ONE (21:38)
[2024-04-19] MEDS: CLINDAMYCIN IN 0.9 % SOD CHLOR 900 MG/50 ML BAG IV SCH (21:52)
[2024-04-19] MEDS: FUROSEMIDE 40 MG/4 ML VIAL IV ONE (23:51)
[2024-04-20] MEDS: ACETAMINOPHEN 1,000 MG/100 ML BAG IV ONE ×2 (00:36→00:37)
[2024-04-20] MEDS: KETOROLAC 15 MG/ML VIAL IV ONE (00:36)
[2024-04-20] MEDS: KETOROLAC 15 MG/ML VIAL ONE (00:38)
[2024-04-20] MEDS ORDERED: IPRATROPIUM/ALBUTEROL 3 ML AMPUL.NEB NEB PRN (01:42)
[2024-04-20] MEDS: NICOTINE 14 MG PATCH TOPICAL SCH (02:12)
[2024-04-20] MEDS: cefTRIAXone 2 GM in DEXTROSE 5% IN WATER 50 ML IV ONE (02:18)
[2024-04-20] MEDS: cefTRIAXone 2 GM VIAL ONE (02:19)
[2024-04-20] MEDS: PANTOPRAZOLE 40 MG VIAL IV ONE (02:20)
[2024-04-20] MEDS: PANTOPRAZOLE 40 MG TABLET PO SCH (02:20)
[2024-04-20 03:13] LABS: Appearance,Urine CLEAR (Clear); Bilirubin,Urine Negative (Negative); Color,Urine YELLOW; Culture Indicated,Urine No; Glucose,Urine (UA) 50 mg/dL (Negative); Ketones,Urine Negative (Negative); Leukocyte Esterase,Urine Negative /uL (Negative); Mucus,Urine FEW /hpf; Nitrate,Urine Negative (Negative); Protein,Urine >=500 mg/dL (Negative); Specific Gravity,Urine 1.025 (1.000-1.035); Urine Blood 0.03 mg/dL (Negative); Urine RBC 4 /hpf (0-3); Urine Squamous Epithelial Cell < 1 /hpf (0-4); Urine WBC 1 /hpf (0-4); Urobilinogen,Urine Negative
[2024-04-20] MEDS: HYDROcodone/APAP 5/325MG TABLET PO PRN (04:53)
[2024-04-20] MEDS: HYDROcodone/APAP 5/325MG TABLET PO ONE (05:14)
[2024-04-20] MEDS: FUROSEMIDE 40 MG/4 ML VIAL IV SCH ×2 (05:24→16:10)
[2024-04-20] MEDS: 0.9 % SODIUM CHLORIDE 10 ML SYRINGE IV SCH (05:25)
[2024-04-20] MEDS: FUROSEMIDE 40 MG/4 ML VIAL IV ONE (05:51)
[2024-04-20] MEDS: traMADol 50 MG TABLET PO PRN ×2 (07:44→22:45)
[2024-04-20 08:19] LABS: ALT/SGPT 23 U/L (<40); AST/SGOT 23 U/L (<40); Albumin 2.8 gm/dL (3.2-5.2); Albumin/Globulin Ratio 0.8 (1.0-2.3); Alkaline Phosphatase 93 U/L (39-117); Bilirubin,Total < 0.2 mg/dL (0.1-1.0); Blood Urea Nitrogen 30 mg/dL (6-20); Calcium 9.2 mg/dL (8.6-10.4); Carbon Dioxide 24 mmol/L (22-30); Chloride 104 mmol/L (96-108); Globulin 3.7 gm/dL (2.2-3.7); Glomerular Filtration Rate 56; Glucose 125 mg/dL (70-105); Potassium 4.8 mmol/L (3.3-5.1); Sodium 139 mmol/L (133-145)
[2024-04-20 09:21] LABS: ABG Methemoglobin 0.1 % (0.4-1.5); VBG Base Excess -5 (-2-3); VBG HCO3 22.4 mmol/L (24.0-28.0); VBG Oxygen Saturation 72.6 % (40.0-70.0); VBG PCO2 54.1 mmHg (41.0-51.0); VBG PH 7.24 U (7.32-7.42); VBG PO2 43.7 mmHg (25.0-40.0); VBG Total CO2 24.1 mmol/L (25.0-29.0)
[2024-04-20] MEDS: HEPARIN 5,000 UNIT/ML VIAL SQ SCH (09:34)
[2024-04-20] MEDS: GABAPENTIN 300 MG CAPSULE PO SCH (09:34)
[2024-04-20] MEDS: OXYBUTYNIN CHLORIDE 5 MG TABLET PO ONE (20:07)
[2024-04-21 06:05] LABS: Basophils # (Auto) 0.03 K/mcL (0.00-0.30); Basophils % (Auto) 0.4 % (0.0-2.0); Eosinophils # (Auto) 0.15 K/mcL (0.00-0.70); Eosinophils % (Auto) 2.1 % (0.0-7.0); Hematocrit 35.2 % (40.1-51.0); Lymphocytes # (Auto) 1.66 K/mcL (1.50-4.80); Lymphocytes % (Auto) 22.8 % (15.5-49.0); Mean Cell Volume 96.4 fL (80.0-100.0); Mean Corpuscular HGB Conc 28.4 g/dL (31.0-36.0); Mean Platelet Volume 8.8 fL (8.8-12.5); Monocytes # (Auto) 0.86 K/mcL (0.10-0.90); Monocytes % (Auto) 11.8 % (1.0-12.0); Neutrophils % (Auto) 62.8 % (38.0-78.0); Platelet Count 283 K/mcL (140-440); RBC 3.65 M/mcL (4.63-6.08); Red Cell Distribution Width 15.2 % (11.5-14.5); WBC 7.3 K/mcL (4.5-11.0)
[2024-04-21 08:04] LABS: ALT/SGPT 21 U/L (<40); AST/SGOT 13 U/L (<40); Albumin 2.8 gm/dL (3.2-5.2); Albumin/Globulin Ratio 0.8 (1.0-2.3); Alkaline Phosphatase 94 U/L (39-117); Bilirubin,Total < 0.2 mg/dL (0.1-1.0); Blood Urea Nitrogen 30 mg/dL (6-20); Calcium 8.6 mg/dL (8.6-10.4); Carbon Dioxide 27 mmol/L (22-30); Chloride 102 mmol/L (96-108); Globulin 3.6 gm/dL (2.2-3.7); Glomerular Filtration Rate 47; Glucose 103 mg/dL (70-105); Potassium 4.5 mmol/L (3.3-5.1); Sodium 138 mmol/L (133-145)
[2024-04-21] MEDS: ALBUMIN HUMAN 25 GM/100 ML BAG IV ONE ×2 (08:52→15:54)
[2024-04-21] MEDS: OXYBUTYNIN CHLORIDE 5 MG TAB.XL.24H PO SCH (09:02)
[2024-04-21] MEDS: LACTULOSE 20 GM/30 ML ORAL.SOL PO PRN (09:05)
[2024-04-21] MEDS: FUROSEMIDE 100 MG/10 ML VIAL IV ONE ×2 (09:15→17:22)
[2024-04-21] MEDS ORDERED: FUROSEMIDE 100 MG/10 ML VIAL IV ONE (09:30)
[2024-04-21] MEDS: TAMSULOSIN 0.4 MG CAPSULE PO ONE (12:18)
[2024-04-21] MEDS: 0.9 % SODIUM CHLORIDE 500 ML IV ONE (14:56)
[2024-04-21] MEDS ORDERED: GABAPENTIN 100 MG CAPSULE PO SCH (15:00)
[2024-04-21] MEDS: GABAPENTIN 100 MG CAPSULE PO SCH (20:57)
[2024-04-22 05:43] LABS: Basophils # (Auto) 0.02 K/mcL (0.00-0.30); Basophils % (Auto) 0.3 % (0.0-2.0); Eosinophils # (Auto) 0.11 K/mcL (0.00-0.70); Eosinophils % (Auto) 1.7 % (0.0-7.0); Hemoglobin 9.8 g/dL (13.7-17.5); Lymphocytes # (Auto) 1.67 K/mcL (1.50-4.80); Lymphocytes % (Auto) 25.9 % (15.5-49.0); Mean Cell Volume 88.4 fL (80.0-100.0); Mean Corpuscular HGB Conc 30.6 g/dL (31.0-36.0); Mean Platelet Volume 8.7 fL (8.8-12.5); Monocytes # (Auto) 0.62 K/mcL (0.10-0.90); Monocytes % (Auto) 9.6 % (1.0-12.0); Neutrophils % (Auto) 62.3 % (38.0-78.0); Platelet Count 309 K/mcL (140-440); RBC 3.62 M/mcL (4.63-6.08); Red Cell Distribution Width 14.8 % (11.5-14.5); WBC 6.5 K/mcL (4.5-11.0)
[2024-04-22 06:15] LABS: ALT/SGPT 10 U/L (<40); AST/SGOT 15 U/L (<40); Albumin/Globulin Ratio 0.9 (1.0-2.3); Alkaline Phosphatase 82 U/L (39-117); Bilirubin,Total < 0.2 mg/dL (0.1-1.0); Blood Urea Nitrogen 31 mg/dL (6-20); Calcium 8.7 mg/dL (8.6-10.4); Carbon Dioxide 26 mmol/L (22-30); Chloride 104 mmol/L (96-108); Globulin 3.3 gm/dL (2.2-3.7); Glomerular Filtration Rate 61; Glucose 167 mg/dL (70-105); Potassium 4.4 mmol/L (3.3-5.1); Sodium 140 mmol/L (133-145)
[2024-04-22] MEDS: FUROSEMIDE 100 MG/10 ML VIAL IV ONE (08:31)
[2024-04-22] MEDS: CHLORTHALIDONE 25 MG TABLET PO SCH (08:31)
[2024-04-22] MEDS: ALBUMIN HUMAN 25 GM/100 ML BAG IV ONE (08:32)
[2024-04-22] MEDS: TAMSULOSIN 0.4 MG CAPSULE PO SCH (20:41)
[2024-04-22] MEDS ORDERED: DEXTROSE 50% 50 ML VIAL IV PRN (20:50)
[2024-04-22] MEDS ORDERED: DEXTROSE 31 GM ORAL.SUSP PO PRN (20:50)
[2024-04-22] MEDS: hydrALAZINE 20 MG/ML VIAL IV PRN (21:11)
[2024-04-22] MEDS: INSULIN LISPRO 1 UNIT/0.01 ML UNIT SQ SCH (21:14)
[2024-04-22] MEDS: ALBUMIN HUMAN 12.5 GM/50 ML VIAL IV ONE (21:49)
[2024-04-22] MEDS: FUROSEMIDE 40 MG/4 ML VIAL IV ONE (22:26)
[2024-04-23 06:57] LABS: Basophils # (Auto) 0.02 K/mcL (0.00-0.30); Basophils % (Auto) 0.3 % (0.0-2.0); Eosinophils # (Auto) 0.14 K/mcL (0.00-0.70); Eosinophils % (Auto) 2.4 % (0.0-7.0); Hematocrit 31.1 % (40.1-51.0); Hemoglobin 9.5 g/dL (13.7-17.5); Lymphocytes # (Auto) 1.33 K/mcL (1.50-4.80); Lymphocytes % (Auto) 23.2 % (15.5-49.0); Mean Cell Volume 88.1 fL (80.0-100.0); Mean Corpuscular HGB Conc 30.5 g/dL (31.0-36.0); Mean Platelet Volume 8.8 fL (8.8-12.5); Monocytes % (Auto) 10.5 % (1.0-12.0); Neutrophils % (Auto) 63.4 % (38.0-78.0); Platelet Count 299 K/mcL (140-440); RBC 3.53 M/mcL (4.63-6.08); Red Cell Distribution Width 14.5 % (11.5-14.5); WBC 5.7 K/mcL (4.5-11.0)
[2024-04-23 07:21] LABS: ALT/SGPT 5 U/L (<40); AST/SGOT 15 U/L (<40); Albumin 3.1 gm/dL (3.2-5.2); Alkaline Phosphatase 81 U/L (39-117); Bilirubin,Direct < 0.2 mg/dL (0-0.3); Bilirubin,Total < 0.2 mg/dL (0.1-1.0); Blood Urea Nitrogen 28 mg/dL (6-20); Carbon Dioxide 28 mmol/L (22-30); Chloride 103 mmol/L (96-108); Globulin 3.1 gm/dL (2.2-3.7); Glomerular Filtration Rate 75; Glucose 146 mg/dL (70-105); Lactate Dehydrogenase 200 U/L (135-225); Phosphorous 3.6 mg/dL (2.5-4.5); Potassium 4.2 mmol/L (3.3-5.1); Sodium 140 mmol/L (133-145); Triglycerides 177 mg/dL (<150); Uric Acid 7.5 mg/dL (2.5-8.0)
[2024-04-23] MEDS: FUROSEMIDE 40 MG/4 ML VIAL IV SCH (08:02)
[2024-04-23] MEDS: ALBUMIN HUMAN 12.5 GM/50 ML VIAL IV ONE (08:02)
[2024-04-23] MEDS: AMITRIPTYLINE 25 MG TABLET PO SCH (15:31)
[2024-04-24] MEDS: LABETALOL HCL 20 MG/4 ML VIAL IV PRN (02:02)
[2024-04-24 06:59] LABS: ALT/SGPT 7 U/L (<40); AST/SGOT 20 U/L (<40); Albumin 3.1 gm/dL (3.2-5.2); Albumin/Globulin Ratio 0.9 (1.0-2.3); Alkaline Phosphatase 82 U/L (39-117); Bilirubin,Direct < 0.2 mg/dL (0-0.3); Bilirubin,Total < 0.2 mg/dL (0.1-1.0); Blood Urea Nitrogen 30 mg/dL (6-20); Calcium 9.1 mg/dL (8.6-10.4); Carbon Dioxide 25 mmol/L (22-30); Chloride 99 mmol/L (96-108); Globulin 3.3 gm/dL (2.2-3.7); Glomerular Filtration Rate 67; Glucose 199 mg/dL (70-105); Lactate Dehydrogenase 238 U/L (135-225); Phosphorous 2.8 mg/dL (2.5-4.5); Potassium 3.8 mmol/L (3.3-5.1); Sodium 137 mmol/L (133-145); Triglycerides 171 mg/dL (<150); Uric Acid 8.2 mg/dL (2.5-8.0)
[2024-04-24] MEDS: ALBUMIN HUMAN 12.5 GM/50 ML VIAL IV ONE (08:59)
[2024-04-24] MEDS: DULoxetine 30 MG CAPSULE PO SCH (08:59)
[2024-04-24] MEDS: SENNOSIDES 1 TABLET PO PRN (20:18)
[2024-04-25 06:10] LABS: Blood Urea Nitrogen 29 mg/dL (6-20); Calcium 8.8 mg/dL (8.6-10.4); Carbon Dioxide 28 mmol/L (22-30); Chloride 100 mmol/L (96-108); Glomerular Filtration Rate 61; Glucose 192 mg/dL (70-105); Potassium 3.7 mmol/L (3.3-5.1); Sodium 140 mmol/L (133-145)
[2024-04-25] MEDS: ALBUMIN HUMAN 12.5 GM/50 ML VIAL IV SCH (08:01)
[2024-04-25] MEDS: ONDANSETRON 4 MG/2 ML VIAL IV PRN (15:26)
[2024-04-26] MEDS: amLODIPine 5 MG TABLET PO SCH (09:53)
[2024-04-26] MEDS: MAGNESIUM HYDROXIDE 30 ML ORAL.SUSP PO PRN (20:07)
[2024-04-27] MEDS ORDERED: ENOXAPARIN 40 MG/0.4 ML SYRINGE SQ SCH (16:00)
[2024-04-27] MEDS: ENOXAPARIN 40 MG/0.4 ML SYRINGE SQ SCH (16:04)
[2024-04-27 16:49] LABS: ALT/SGPT 12 U/L (<40); AST/SGOT 16 U/L (<40); Albumin 3.4 gm/dL (3.2-5.2); Albumin/Globulin Ratio 1.1 (1.0-2.3); Alkaline Phosphatase 72 U/L (39-117); Bilirubin,Direct < 0.2 mg/dL (0-0.3); Bilirubin,Total < 0.2 mg/dL (0.1-1.0); Blood Urea Nitrogen 45 mg/dL (6-20); Calcium 8.5 mg/dL (8.6-10.4); Carbon Dioxide 32 mmol/L (22-30); Chloride 99 mmol/L (96-108); Globulin 3.2 gm/dL (2.2-3.7); Glomerular Filtration Rate 44; Glucose 226 mg/dL (70-105); Lactate Dehydrogenase 205 U/L (135-225); Phosphorous 3.7 mg/dL (2.5-4.5); Potassium 4.6 mmol/L (3.3-5.1); Sodium 138 mmol/L (133-145); Triglycerides 268 mg/dL (<150); Uric Acid 9.3 mg/dL (2.5-8.0)
[2024-04-27] MEDS: INSULIN LISPRO 1 UNIT/0.01 ML UNIT SQ SCH (16:57)
[2024-04-27] MEDS: 0.9 % SODIUM CHLORIDE 1,000 ML IV SCH (17:17)
[2024-04-28 07:15] LABS: ALT/SGPT 6 U/L (<40); AST/SGOT 12 U/L (<40); Albumin 3.2 gm/dL (3.2-5.2); Albumin/Globulin Ratio 1.1 (1.0-2.3); Alkaline Phosphatase 67 U/L (39-117); Bilirubin,Direct < 0.2 mg/dL (0-0.3); Bilirubin,Total < 0.2 mg/dL (0.1-1.0); Blood Urea Nitrogen 45 mg/dL (6-20); Calcium 8.2 mg/dL (8.6-10.4); Carbon Dioxide 31 mmol/L (22-30); Chloride 102 mmol/L (96-108); Glomerular Filtration Rate 51; Glucose 182 mg/dL (70-105); Lactate Dehydrogenase 199 U/L (135-225); Potassium 4.3 mmol/L (3.3-5.1); Sodium 142 mmol/L (133-145); Triglycerides 242 mg/dL (<150); Uric Acid 8.7 mg/dL (2.5-8.0)
[2024-04-28] MEDS: ENOXAPARIN 40 MG/0.4 ML SYRINGE SQ SCH (08:02)
[2024-04-28] MEDS: ACETAMINOPHEN 325 MG TABLET PO PRN (08:12)
[2024-04-28 09:45] LABS: Basophils # (Auto) 0.02 K/mcL (0.00-0.30); Basophils % (Auto) 0.5 % (0.0-2.0); Eosinophils # (Auto) 0.11 K/mcL (0.00-0.70); Eosinophils % (Auto) 2.6 % (0.0-7.0); Hematocrit 33.5 % (40.1-51.0); Hemoglobin 10.2 g/dL (13.7-17.5); Lymphocytes % (Auto) 40.2 % (15.5-49.0); Mean Cell Volume 88.2 fL (80.0-100.0); Mean Corpuscular HGB Conc 30.4 g/dL (31.0-36.0); Mean Platelet Volume 10.6 fL (8.8-12.5); Monocytes # (Auto) 0.31 K/mcL (0.10-0.90); Monocytes % (Auto) 7.3 % (1.0-12.0); Neutrophils % (Auto) 48.9 % (38.0-78.0); Red Cell Distribution Width 14.4 % (11.5-14.5); WBC 4.2 K/mcL (4.5-11.0)
[2024-04-28] MEDS: 0.9 % SODIUM CHLORIDE 500 ML IV ONE (10:03)
[2024-04-28] MEDS: OLANZapine 5 MG TABLET PO ONE (23:38)
[2024-04-28] MEDS: OLANZapine 2.5 MG TABLET PO ONE (23:39)
[2024-04-29] MEDS: hydrOXYzine 25 MG TABLET PO ONE (00:02)
[2024-04-29 06:05] LABS: ALT/SGPT < 5 U/L (<40); AST/SGOT 13 U/L (<40); Albumin 3.2 gm/dL (3.2-5.2); Albumin/Globulin Ratio 1.1 (1.0-2.3); Alkaline Phosphatase 68 U/L (39-117); Bilirubin,Direct < 0.2 mg/dL (0-0.3); Bilirubin,Total < 0.2 mg/dL (0.1-1.0); Blood Urea Nitrogen 40 mg/dL (6-20); Calcium 8.3 mg/dL (8.6-10.4); Carbon Dioxide 30 mmol/L (22-30); Chloride 104 mmol/L (96-108); Glomerular Filtration Rate 67; Glucose 158 mg/dL (70-105); Lactate Dehydrogenase 212 U/L (135-225); Potassium 4.3 mmol/L (3.3-5.1); Sodium 140 mmol/L (133-145); Triglycerides 270 mg/dL (<150)
[2024-04-29] MEDS: PHOSPHORUS 250 MG TABLET PO SCH (08:08)
[2024-04-29] MEDS: NEUTRA PHOS 1 PACKET PO SCH (08:08)
== END 2024-04-29 13:07 | DRG 189 ==
LOC: ED 19:45 → ICU 04-20 01:29
PROVIDERS: ADMIT Student in an Organized Health Care Education/Training Program; ATTEND Student in an Organized Health Care Education/Training Program

== ENCOUNTER 2024-09-13 08:25 | Inpatient (IN) ==
[2024-09-13 09:23] LABS: Basophils # (Auto) 0.02 K/mcL (0.00-0.30); Basophils % (Auto) 0.2 % (0.0-2.0); Eosinophils # (Auto) 0.11 K/mcL (0.00-0.70); Eosinophils % (Auto) 1.3 % (0.0-7.0); Hematocrit 30.8 % (40.1-51.0); Hemoglobin 9.7 g/dL (13.7-17.5); Lymphocytes % (Auto) 21.2 % (15.5-49.0); Mean Cell Volume 87.7 fL (80.0-100.0); Mean Corpuscular HGB Conc 31.5 g/dL (31.0-36.0); Mean Platelet Volume 9.1 fL (8.8-12.5); Monocytes # (Auto) 0.69 K/mcL (0.10-0.90); Monocytes % (Auto) 8.1 % (1.0-12.0); Neutrophils % (Auto) 68.7 % (38.0-78.0); Platelet Count 309 K/mcL (140-440); RBC 3.51 M/mcL (4.63-6.08); Red Cell Distribution Width 14.6 % (11.5-14.5); WBC 8.5 K/mcL (4.5-11.0)
[2024-09-13 09:51] LABS: ALT/SGPT 25 U/L (<40); AST/SGOT 19 U/L (<40); Albumin 2.7 gm/dL (3.2-5.2); Albumin/Globulin Ratio 0.8 (1.0-2.3); Alkaline Phosphatase 102 U/L (39-117); Bilirubin,Total < 0.2 mg/dL (0.1-1.0); Blood Urea Nitrogen 53 mg/dL (6-20); Calcium 8.6 mg/dL (8.6-10.4); Carbon Dioxide 22 mmol/L (22-30); Chloride 102 mmol/L (96-108); Globulin 3.2 gm/dL (2.2-3.7); Glomerular Filtration Rate 41; Glucose 283 mg/dL (70-105); Potassium 4.5 mmol/L (3.3-5.1); Sodium 136 mmol/L (133-145); Thyroid Stimulating Hormone 4.38 uIU/mL (0.27-5.01)
[2024-09-13] MEDS: FUROSEMIDE 40 MG/4 ML VIAL IV ONE (10:01)
[2024-09-13] MEDS ORDERED: morphine 4 MG/ML VIAL IV PRN (12:17)
[2024-09-13] MEDS ORDERED: DEXTROSE 50% 50 ML VIAL IV PRN (12:17)
[2024-09-13] MEDS ORDERED: IPRATROPIUM/ALBUTEROL 3 ML AMPUL.NEB NEB PRN (12:17)
[2024-09-13] MEDS ORDERED: DEXTROSE 31 GM ORAL.SUSP PO PRN (12:17)
[2024-09-13 12:58] LABS: ABG Methemoglobin 0.3 % (0.4-1.5); Total Hemoglobin 11.3 gm/Dl (13.5-16.5); VBG Base Excess -3 (-2-3); VBG Oxygen Saturation 55.4 % (40.0-70.0); VBG PH 7.27 U (7.32-7.42); VBG PO2 32.3 mmHg (25.0-40.0); VBG Total CO2 25.6 mmol/L (25.0-29.0)
[2024-09-13] MEDS: HYDROmorphone 0.5 MG/0.5 ML SYRINGE IV PRN (14:29)
[2024-09-13] MEDS: NICOTINE 21 MG PATCH TOPICAL SCH (14:33)
[2024-09-13] MEDS: 0.9 % SODIUM CHLORIDE 10 ML SYRINGE IV SCH (14:35)
[2024-09-13] MEDS: FUROSEMIDE 40 MG/4 ML VIAL IV SCH (17:02)
[2024-09-13] MEDS: INSULIN LISPRO 1 UNIT/0.01 ML UNIT SQ SCH (17:22)
[2024-09-13] MEDS: CEPHALEXIN 250 MG CAPSULE PO SCH (17:40)
[2024-09-13] MEDS: SENNOSIDES 1 TABLET PO SCH (21:01)
[2024-09-13] MEDS: HEPARIN 5,000 UNIT/ML VIAL SQ SCH (21:01)
[2024-09-13] MEDS ORDERED: LIDOCAINE 2% URO-JET 10 ML JEL.PF.APP ONE (22:00)
[2024-09-13] MEDS: DOCUSATE SODIUM 100 MG CAPSULE PO SCH (22:30)
[2024-09-13] MEDS: ceFAZolin 3 GM in DEXTROSE 5% IN WATER 50 ML IV ONE (23:07)
[2024-09-13] MEDS: ACETAMINOPHEN 325 MG TABLET PO PRN (23:46)
[2024-09-14] MEDS: LIDOCAINE 2% URO-JET 10 ML JEL.PF.APP UR PRN (00:23)
[2024-09-14 05:50] LABS: Basophils # (Auto) 0.03 K/mcL (0.00-0.30); Basophils % (Auto) 0.4 % (0.0-2.0); Eosinophils # (Auto) 0.18 K/mcL (0.00-0.70); Eosinophils % (Auto) 2.3 % (0.0-7.0); Hematocrit 30.5 % (40.1-51.0); Hemoglobin 9.4 g/dL (13.7-17.5); Lymphocytes # (Auto) 1.94 K/mcL (1.50-4.80); Lymphocytes % (Auto) 24.6 % (15.5-49.0); Mean Cell Volume 88.9 fL (80.0-100.0); Mean Corpuscular HGB Conc 30.8 g/dL (31.0-36.0); Mean Platelet Volume 9.2 fL (8.8-12.5); Monocytes % (Auto) 8.9 % (1.0-12.0); Neutrophils % (Auto) 63.7 % (38.0-78.0); Platelet Count 327 K/mcL (140-440); RBC 3.43 M/mcL (4.63-6.08); Red Cell Distribution Width 14.7 % (11.5-14.5); WBC 7.9 K/mcL (4.5-11.0)
[2024-09-14 06:16] LABS: ALT/SGPT 19 U/L (<40); AST/SGOT 19 U/L (<40); Albumin 2.7 gm/dL (3.2-5.2); Albumin/Globulin Ratio 0.8 (1.0-2.3); Alkaline Phosphatase 99 U/L (39-117); Bilirubin,Total < 0.2 mg/dL (0.1-1.0); Blood Urea Nitrogen 49 mg/dL (6-20); Calcium 8.4 mg/dL (8.6-10.4); Carbon Dioxide 25 mmol/L (22-30); Chloride 104 mmol/L (96-108); Globulin 3.4 gm/dL (2.2-3.7); Glomerular Filtration Rate 44; Glucose 120 mg/dL (70-105); Potassium 4.1 mmol/L (3.3-5.1); Sodium 140 mmol/L (133-145)
[2024-09-14 08:07] LABS: Estimated Average Glucose(eAG) 269 mg/dL
[2024-09-14] MEDS: traZODone HCL 50 MG TABLET PO PRN (21:43)
[2024-09-14] MEDS: diphenhydrAMINE 25 MG CAPSULE ONE (21:44)
[2024-09-14] MEDS: diphenhydrAMINE 25 MG CAPSULE PO PRN (21:44)
[2024-09-15 06:23] LABS: ALT/SGPT 22 U/L (<40); AST/SGOT 20 U/L (<40); Albumin 2.9 gm/dL (3.2-5.2); Albumin/Globulin Ratio 0.9 (1.0-2.3); Alkaline Phosphatase 108 U/L (39-117); Bilirubin,Total < 0.2 mg/dL (0.1-1.0); Blood Urea Nitrogen 41 mg/dL (6-20); Calcium 8.5 mg/dL (8.6-10.4); Carbon Dioxide 26 mmol/L (22-30); Chloride 105 mmol/L (96-108); Globulin 3.3 gm/dL (2.2-3.7); Glomerular Filtration Rate 47; Glucose 153 mg/dL (70-105); Potassium 4.2 mmol/L (3.3-5.1); Sodium 141 mmol/L (133-145)
[2024-09-15 06:30] LABS: Basophils # (Auto) 0.02 K/mcL (0.00-0.30); Basophils % (Auto) 0.2 % (0.0-2.0); Eosinophils # (Auto) 0.19 K/mcL (0.00-0.70); Eosinophils % (Auto) 2.1 % (0.0-7.0); Hematocrit 31.8 % (40.1-51.0); Lymphocytes # (Auto) 2.04 K/mcL (1.50-4.80); Lymphocytes % (Auto) 22.6 % (15.5-49.0); Mean Cell Volume 87.6 fL (80.0-100.0); Mean Corpuscular HGB Conc 31.4 g/dL (31.0-36.0); Mean Platelet Volume 9.3 fL (8.8-12.5); Monocytes # (Auto) 0.77 K/mcL (0.10-0.90); Monocytes % (Auto) 8.5 % (1.0-12.0); Neutrophils % (Auto) 66.4 % (38.0-78.0); Platelet Count 369 K/mcL (140-440); RBC 3.63 M/mcL (4.63-6.08); Red Cell Distribution Width 14.9 % (11.5-14.5)
[2024-09-15] MEDS: KETOROLAC 30 MG/ML VIAL IV PRN (09:56)
[2024-09-15] MEDS ORDERED: ACETAMINOPHEN 500 MG TABLET PO PRN (11:10)
[2024-09-15] MEDS ORDERED: DOCUSATE SODIUM 100 MG CAPSULE PO PRN (11:10)
[2024-09-15] MEDS: LIDOCAINE 4% TOP PATCH TOPICAL SCH (11:51)
[2024-09-15] MEDS: OMEPRAZOLE 20 MG CAPSULE PO SCH (12:01)
[2024-09-15 13:13] LABS: Amphetamine Screen,Urine Suspect positive; Barbiturate Screen,Urine None detected; Benzodiazepines Screen,Urine None detected; Cannabinoid Screen,Urine None detected; Cocaine Screen,Urine None detected; Fentanyl, Urine Screen None Detected; Opiate Screen,Urine None detected; Oxycodone, Urine Screen None detected; Phencyclidine Screen,Urine None detected
[2024-09-15] MEDS: INSULIN GLARGINE, HUMAN 1 UNIT/0.01 ML SQ SCH (21:20)
[2024-09-15] MEDS: GABAPENTIN 100 MG CAPSULE PO SCH (21:23)
[2024-09-16 06:04] LABS: Basophils # (Auto) 0.03 K/mcL (0.00-0.30); Basophils % (Auto) 0.5 % (0.0-2.0); Eosinophils # (Auto) 0.14 K/mcL (0.00-0.70); Eosinophils % (Auto) 2.1 % (0.0-7.0); Hematocrit 32.2 % (40.1-51.0); Hemoglobin 9.9 g/dL (13.7-17.5); Lymphocytes # (Auto) 2.46 K/mcL (1.50-4.80); Lymphocytes % (Auto) 36.9 % (15.5-49.0); Mean Cell Volume 88.2 fL (80.0-100.0); Mean Corpuscular HGB Conc 30.7 g/dL (31.0-36.0); Mean Platelet Volume 8.9 fL (8.8-12.5); Monocytes # (Auto) 0.64 K/mcL (0.10-0.90); Monocytes % (Auto) 9.6 % (1.0-12.0); Neutrophils % (Auto) 50.6 % (38.0-78.0); Platelet Count 340 K/mcL (140-440); RBC 3.65 M/mcL (4.63-6.08); Red Cell Distribution Width 14.8 % (11.5-14.5); WBC 6.7 K/mcL (4.5-11.0)
[2024-09-16 06:32] LABS: ALT/SGPT 17 U/L (<40); AST/SGOT 19 U/L (<40); Albumin 2.8 gm/dL (3.2-5.2); Albumin/Globulin Ratio 0.8 (1.0-2.3); Alkaline Phosphatase 105 U/L (39-117); Bilirubin,Total < 0.2 mg/dL (0.1-1.0); Blood Urea Nitrogen 35 mg/dL (6-20); Calcium 8.6 mg/dL (8.6-10.4); Carbon Dioxide 25 mmol/L (22-30); Chloride 105 mmol/L (96-108); Globulin 3.4 gm/dL (2.2-3.7); Glomerular Filtration Rate 51; Glucose 102 mg/dL (70-105); Potassium 3.9 mmol/L (3.3-5.1); Sodium 141 mmol/L (133-145)
[2024-09-16] MEDS: AMITRIPTYLINE 25 MG TABLET PO SCH (08:18)
[2024-09-16] MEDS: POTASSIUM CHLORIDE 10 MEQ TABLET PO SCH (08:19)
[2024-09-16] MEDS: DULoxetine 30 MG CAPSULE PO SCH (08:19)
[2024-09-16] MEDS: HYDROcodone/APAP 5/325MG TABLET PO PRN (10:09)
[2024-09-17 06:45] LABS: ALT/SGPT 13 U/L (<40); AST/SGOT 19 U/L (<40); Albumin 2.7 gm/dL (3.2-5.2); Albumin/Globulin Ratio 0.8 (1.0-2.3); Alkaline Phosphatase 103 U/L (39-117); Bilirubin,Direct < 0.2 mg/dL (0-0.3); Bilirubin,Total < 0.2 mg/dL (0.1-1.0); Blood Urea Nitrogen 33 mg/dL (6-20); Calcium 8.5 mg/dL (8.6-10.4); Carbon Dioxide 26 mmol/L (22-30); Chloride 105 mmol/L (96-108); Globulin 3.6 gm/dL (2.2-3.7); Glomerular Filtration Rate 61; Glucose 78 mg/dL (70-105); Lactate Dehydrogenase 232 U/L (135-225); Phosphorous 3.5 mg/dL (2.5-4.5); Sodium 142 mmol/L (133-145); Triglycerides 192 mg/dL (<150); Uric Acid 8.8 mg/dL (2.5-8.0)
[2024-09-17] MEDS: ALBUMIN HUMAN 12.5 GM/50 ML VIAL IV SCH (11:16)
[2024-09-17] MEDS: ONDANSETRON 4 MG/2 ML VIAL IV PRN (14:59)
[2024-09-17 17:21] LABS: ABG Methemoglobin 0 % (0.4-1.5); Total Hemoglobin 11.4 gm/Dl (13.5-16.5); VBG Base Excess 0 (-2-3); VBG Oxygen Saturation 91.1 % (40.0-70.0); VBG PCO2 49.2 mmHg (41.0-51.0); VBG PH 7.34 U (7.32-7.42); VBG Total CO2 27.5 mmol/L (25.0-29.0)
[2024-09-17] MEDS: INSULIN GLARGINE, HUMAN 1 UNIT/0.01 ML SQ SCH (21:01)
[2024-09-18 07:00] LABS: ALT/SGPT 12 U/L (<40); AST/SGOT 19 U/L (<40); Albumin 2.3 gm/dL (3.2-5.2); Albumin/Globulin Ratio 0.6 (1.0-2.3); Alkaline Phosphatase 94 U/L (39-117); Bilirubin,Direct < 0.2 mg/dL (0-0.3); Bilirubin,Total < 0.2 mg/dL (0.1-1.0); Blood Urea Nitrogen 29 mg/dL (6-20); Calcium 8.2 mg/dL (8.6-10.4); Carbon Dioxide 23 mmol/L (22-30); Chloride 106 mmol/L (96-108); Globulin 3.7 gm/dL (2.2-3.7); Glomerular Filtration Rate 67; Glucose 82 mg/dL (70-105); Lactate Dehydrogenase 238 U/L (135-225); Phosphorous 3.3 mg/dL (2.5-4.5); Potassium 4.4 mmol/L (3.3-5.1); Sodium 140 mmol/L (133-145); Triglycerides 199 mg/dL (<150); Uric Acid 8.6 mg/dL (2.5-8.0)
[2024-09-18] MEDS: ALBUMIN HUMAN 12.5 GM/50 ML VIAL IV ONE (09:04)
[2024-09-18] MEDS: ENALAPRILAT 1.25 MG/ML VIAL IV PRN (12:18)
[2024-09-18] MEDS: METHOCARBAMOL 750 MG TABLET PO PRN (18:38)
[2024-09-19] MEDS: ALBUMIN HUMAN 12.5 GM/50 ML VIAL IV ONE (08:39)
[2024-09-19 09:12] LABS: Amphetamine Screen Positive
[2024-09-19 11:43] VITALS: TEMP 97; O2SAT 97
[2024-09-22] MEDS ORDERED: [UNRECOGNIZED DRUG - OTHER] SUB-Q SCH (09:00)
== END 2024-09-19 13:50 | disposition home health service (06) | DRG 291 ==
LOC: ED 08:25 → MEDSUR 08:25
PROVIDERS: ADMIT Internal Medicine; ATTEND Internal Medicine

== ENCOUNTER 2025-01-17 16:00 | Inpatient (IN) ==
[2025-01-17] MEDS: FUROSEMIDE 40 MG/4 ML VIAL IV ONE (16:45)
[2025-01-17 17:04] LABS: Basophils # (Auto) 0.02 K/mcL (0.00-0.30); Basophils % (Auto) 0.2 % (0.0-2.0); Eosinophils # (Auto) 0.05 K/mcL (0.00-0.70); Eosinophils % (Auto) 0.4 % (0.0-7.0); Hematocrit 31.3 % (40.1-51.0); Hemoglobin 9.6 g/dL (13.7-17.5); Lymphocytes # (Auto) 1.41 K/mcL (1.50-4.80); Lymphocytes % (Auto) 12.1 % (15.5-49.0); Mean Cell Volume 83.9 fL (80.0-100.0); Mean Corpuscular HGB Conc 30.7 g/dL (31.0-36.0); Monocytes # (Auto) 1.01 K/mcL (0.10-0.90); Monocytes % (Auto) 8.7 % (1.0-12.0); Neutrophils % (Auto) 78.3 % (38.0-78.0); Platelet Count 393 K/mcL (140-440); RBC 3.73 M/mcL (4.63-6.08); Red Cell Distribution Width 17.3 % (11.5-14.5); WBC 11.6 K/mcL (4.5-11.0)
[2025-01-17 17:40] LABS: Blood Urea Nitrogen 69 mg/dL (6-20); Calcium 7.9 mg/dL (8.6-10.4); Carbon Dioxide 18 mmol/L (22-30); Chloride 103 mmol/L (96-108); Glomerular Filtration Rate 34; Glucose 93 mg/dL (70-105); Potassium 5.5 mmol/L (3.3-5.1); Sodium 135 mmol/L (133-145)
[2025-01-17] MEDS: cefTRIAXone 1 GM VIAL IV ONE (19:33)
[2025-01-17 19:52] LABS: Appearance,Urine Clear (Clear); Bacteria,Urine Rare /hpf (0); Bilirubin,Urine Negative (Negative); Color,Urine Yellow; Glucose,Urine (UA) 100 mg/dL (Negative); Ketones,Urine Negative (Negative); Leukocyte Esterase,Urine Negative /uL (Negative); Nitrate,Urine Negative (Negative); PH,Urine 5.5 (5.0-9.0); Protein,Urine >=300 mg/dL (Negative); Specific Gravity,Urine 1.025 (1.000-1.035); Urine Blood Small ery/mcL (Negative); Urine Granular Cast 2 /lph (0-0); Urine Hyaline Cast 4 /lph (0-2); Urine RBC 2 /hpf (0-3); Urine Squamous Epithelial Cell 2 /hpf (0-4); Urine WBC 0 /hpf (0-4); Urobilinogen,Urine Normal
[2025-01-17] MEDS ORDERED: DEXTROSE 31 GM ORAL.SUSP PO PRN (23:08)
[2025-01-17] MEDS ORDERED: ONDANSETRON 4 MG/2 ML VIAL IV PRN (23:08)
[2025-01-17] MEDS ORDERED: SENNOSIDES 1 TABLET PO PRN (23:08)
[2025-01-17] MEDS ORDERED: NICOTINE POLACRILEX 2 MG GUM CHEW/PARK PRN (23:08)
[2025-01-17] MEDS ORDERED: LACTULOSE 20 GM/30 ML ORAL.SOL PO PRN (23:08)
[2025-01-17] MEDS ORDERED: DEXTROSE 50% 50 ML VIAL IV PRN (23:08)
[2025-01-17 23:59] LABS: Creatinine, Spot Urine 47.8 mg/dL (39.0-259.0); Pro:Crea Ratio 3.83 (<0.20)
[2025-01-18] MEDS: FUROSEMIDE 40 MG/4 ML VIAL IV ONE ×3 (00:14→00:27)
[2025-01-18] MEDS: DOXYCYCLINE 100 MG in DEXTROSE 5% IN WATER 100 ML IV SCH (00:23)
[2025-01-18] MEDS: 0.9 % SODIUM CHLORIDE 10 ML SYRINGE IV SCH (00:28)
[2025-01-18 05:50] LABS: Basophils # (Auto) 0.01 K/mcL (0.00-0.30); Basophils % (Auto) 0.1 % (0.0-2.0); Eosinophils # (Auto) 0.06 K/mcL (0.00-0.70); Eosinophils % (Auto) 0.5 % (0.0-7.0); Hematocrit 29.6 % (40.1-51.0); Lymphocytes # (Auto) 1.37 K/mcL (1.50-4.80); Lymphocytes % (Auto) 11.4 % (15.5-49.0); Mean Cell Volume 85.5 fL (80.0-100.0); Mean Corpuscular HGB Conc 30.4 g/dL (31.0-36.0); Mean Platelet Volume 8.9 fL (8.8-12.5); Monocytes # (Auto) 1.16 K/mcL (0.10-0.90); Monocytes % (Auto) 9.7 % (1.0-12.0); Platelet Count 412 K/mcL (140-440); RBC 3.46 M/mcL (4.63-6.08); Red Cell Distribution Width 17.4 % (11.5-14.5)
[2025-01-18 06:04] LABS: ALT/SGPT 41 U/L (<40); AST/SGOT 33 U/L (<40); Albumin 2.8 gm/dL (3.2-5.2); Albumin/Globulin Ratio 0.8 (1.0-2.3); Alkaline Phosphatase 99 U/L (39-117); Bilirubin,Direct < 0.2 mg/dL (0-0.3); Bilirubin,Total < 0.2 mg/dL (0.1-1.0); Blood Urea Nitrogen 68 mg/dL (6-20); Calcium 7.8 mg/dL (8.6-10.4); Carbon Dioxide 19 mmol/L (22-30); Chloride 104 mmol/L (96-108); Globulin 3.5 gm/dL (2.2-3.7); Glomerular Filtration Rate 34; Glucose 92 mg/dL (70-105); Lactate Dehydrogenase 274 U/L (135-225); Phosphorous 5.3 mg/dL (2.5-4.5); Potassium 4.8 mmol/L (3.3-5.1); Sodium 139 mmol/L (133-145); Triglycerides 143 mg/dL (<150); Uric Acid 7.8 mg/dL (2.5-8.0)
[2025-01-18] MEDS: INSULIN LISPRO 1 UNIT/0.01 ML UNIT SQ SCH (07:11)
[2025-01-18 08:03] LABS: Estimated Average Glucose(eAG) 203 mg/dL; Hemoglobin A1C 8.7 % Hgb (4.0-6.0)
[2025-01-18] MEDS ORDERED: INSULIN GLARGINE, HUMAN 1 UNIT/0.01 ML SQ SCH (09:00)
[2025-01-18] MEDS: HEPARIN 5,000 UNIT/ML VIAL SQ SCH (09:20)
[2025-01-18] MEDS: FUROSEMIDE 40 MG/4 ML VIAL IV SCH ×2 (09:20→09:50)
[2025-01-18] MEDS: INSULIN GLARGINE, HUMAN 1 UNIT/0.01 ML SQ SCH (09:21)
[2025-01-18] MEDS: cefTRIAXone 1 GM VIAL IV SCH (09:22)
[2025-01-18] MEDS: DOCUSATE SODIUM 100 MG CAPSULE PO SCH (09:22)
[2025-01-18] MEDS: NICOTINE 21 MG PATCH TOPICAL SCH (11:39)
[2025-01-18] MEDS: busPIRone 5 MG TABLET PO SCH (20:42)
[2025-01-18] MEDS: PREGABALIN 75 MG CAPSULE PO SCH (20:42)
[2025-01-18] MEDS: ACETAMINOPHEN 325 MG TABLET PO PRN (21:45)
[2025-01-18] MEDS: oxyCODONE IR 5 MG TABLET PO PRN (22:55)
[2025-01-19] MEDS: oxyCODONE IR 5 MG TABLET PO ONE (00:02)
[2025-01-19 06:02] LABS: Basophils # (Auto) 0.02 K/mcL (0.00-0.30); Basophils % (Auto) 0.2 % (0.0-2.0); Eosinophils % (Auto) 0.9 % (0.0-7.0); Hemoglobin 8.9 g/dL (13.7-17.5); Lymphocytes # (Auto) 1.38 K/mcL (1.50-4.80); Lymphocytes % (Auto) 12.8 % (15.5-49.0); Mean Cell Volume 84.8 fL (80.0-100.0); Mean Corpuscular HGB Conc 30.7 g/dL (31.0-36.0); Monocytes # (Auto) 1.17 K/mcL (0.10-0.90); Monocytes % (Auto) 10.9 % (1.0-12.0); Neutrophils % (Auto) 74.9 % (38.0-78.0); Platelet Count 396 K/mcL (140-440); RBC 3.42 M/mcL (4.63-6.08); Red Cell Distribution Width 17.6 % (11.5-14.5); WBC 10.8 K/mcL (4.5-11.0)
[2025-01-19 06:08] LABS: ALT/SGPT 31 U/L (<40); AST/SGOT 16 U/L (<40); Albumin 2.5 gm/dL (3.2-5.2); Albumin/Globulin Ratio 0.8 (1.0-2.3); Alkaline Phosphatase 92 U/L (39-117); Bilirubin,Direct < 0.2 mg/dL (0-0.3); Bilirubin,Total < 0.2 mg/dL (0.1-1.0); Blood Urea Nitrogen 63 mg/dL (6-20); Calcium 7.4 mg/dL (8.6-10.4); Carbon Dioxide 23 mmol/L (22-30); Chloride 103 mmol/L (96-108); Globulin 3.2 gm/dL (2.2-3.7); Glomerular Filtration Rate 38; Glucose 150 mg/dL (70-105); Lactate Dehydrogenase 210 U/L (135-225); Phosphorous 4.6 mg/dL (2.5-4.5); Potassium 3.9 mmol/L (3.3-5.1); Sodium 137 mmol/L (133-145); Triglycerides 153 mg/dL (<150); Uric Acid 8.2 mg/dL (2.5-8.0)
[2025-01-19] MEDS: DULoxetine 30 MG CAPSULE PO SCH (08:37)
[2025-01-19 17:32] LABS: Albumin 2.5 gm/dL (3.2-5.2); Blood Urea Nitrogen 60 mg/dL (6-20); Calcium 7.7 mg/dL (8.6-10.4); Carbon Dioxide 24 mmol/L (22-30); Chloride 102 mmol/L (96-108); Glomerular Filtration Rate 41; Glucose 165 mg/dL (70-105); Phosphorous 4.1 mg/dL (2.5-4.5); Potassium 4.2 mmol/L (3.3-5.1); Sodium 136 mmol/L (133-145)
[2025-01-20 05:46] LABS: Basophils # (Auto) 0.03 K/mcL (0.00-0.30); Basophils % (Auto) 0.3 % (0.0-2.0); Eosinophils # (Auto) 0.18 K/mcL (0.00-0.70); Eosinophils % (Auto) 1.6 % (0.0-7.0); Hemoglobin 9.1 g/dL (13.7-17.5); Lymphocytes # (Auto) 1.99 K/mcL (1.50-4.80); Lymphocytes % (Auto) 17.8 % (15.5-49.0); Mean Cell Volume 84.7 fL (80.0-100.0); Mean Corpuscular HGB Conc 30.3 g/dL (31.0-36.0); Mean Platelet Volume 8.8 fL (8.8-12.5); Monocytes # (Auto) 1.23 K/mcL (0.10-0.90); Neutrophils % (Auto) 68.9 % (38.0-78.0); Platelet Count 420 K/mcL (140-440); RBC 3.54 M/mcL (4.63-6.08); Red Cell Distribution Width 17.9 % (11.5-14.5); WBC 11.2 K/mcL (4.5-11.0)
[2025-01-20 06:07] LABS: ALT/SGPT 24 U/L (<40); AST/SGOT 11 U/L (<40); Albumin 2.6 gm/dL (3.2-5.2); Albumin/Globulin Ratio 0.8 (1.0-2.3); Alkaline Phosphatase 89 U/L (39-117); Bilirubin,Direct < 0.2 mg/dL (0-0.3); Bilirubin,Total < 0.2 mg/dL (0.1-1.0); Blood Urea Nitrogen 58 mg/dL (6-20); Calcium 7.8 mg/dL (8.6-10.4); Carbon Dioxide 25 mmol/L (22-30); Chloride 104 mmol/L (96-108); Globulin 3.4 gm/dL (2.2-3.7); Glomerular Filtration Rate 41; Glucose 157 mg/dL (70-105); Lactate Dehydrogenase 202 U/L (135-225); Phosphorous 4.2 mg/dL (2.5-4.5); Potassium 4.3 mmol/L (3.3-5.1); Sodium 140 mmol/L (133-145); Triglycerides 161 mg/dL (<150)
[2025-01-20] MEDS: CEFDINIR 300 MG CAPSULE PO SCH (08:27)
[2025-01-20] MEDS: BUMETANIDE 1 MG/4 ML VIAL IV SCH ×2 (08:28→20:30)
[2025-01-20] MEDS: DOXYCYCLINE HYCLATE 100 MG TABLET.ORL PO SCH (08:28)
[2025-01-20 17:21] LABS: Albumin 2.8 gm/dL (3.2-5.2); Blood Urea Nitrogen 56 mg/dL (6-20); Calcium 8.3 mg/dL (8.6-10.4); Carbon Dioxide 27 mmol/L (22-30); Chloride 101 mmol/L (96-108); Glomerular Filtration Rate 44; Glucose 190 mg/dL (70-105); Phosphorous 4.5 mg/dL (2.5-4.5); Potassium 4.6 mmol/L (3.3-5.1); Sodium 139 mmol/L (133-145)
[2025-01-20] MEDS: LISINOPRIL 5 MG TABLET PO SCH (19:06)
[2025-01-20] MEDS: LABETALOL HCL 20 MG/4 ML VIAL IV PRN (20:55)
[2025-01-20] MEDS ORDERED: LABETALOL HCL 20 MG/4 ML VIAL IV PRN (20:57)
[2025-01-20] MEDS: CAPTOPRIL 12.5 MG TABLET PO SCH (21:06)
[2025-01-20] MEDS: LABETALOL HCL 20 MG/4 ML VIAL IV ONE (21:07)
[2025-01-21 06:20] LABS: ALT/SGPT 19 U/L (<40); AST/SGOT 10 U/L (<40); Albumin 2.6 gm/dL (3.2-5.2); Albumin/Globulin Ratio 0.7 (1.0-2.3); Alkaline Phosphatase 84 U/L (39-117); Bilirubin,Direct < 0.2 mg/dL (0-0.3); Bilirubin,Total < 0.2 mg/dL (0.1-1.0); Blood Urea Nitrogen 55 mg/dL (6-20); Calcium 8.1 mg/dL (8.6-10.4); Carbon Dioxide 28 mmol/L (22-30); Chloride 102 mmol/L (96-108); Globulin 3.5 gm/dL (2.2-3.7); Glomerular Filtration Rate 47; Glucose 179 mg/dL (70-105); Lactate Dehydrogenase 194 U/L (135-225); Phosphorous 4.5 mg/dL (2.5-4.5); Sodium 140 mmol/L (133-145); Triglycerides 172 mg/dL (<150); Uric Acid 7.6 mg/dL (2.5-8.0)
[2025-01-21] MEDS ORDERED: BUMETANIDE 1 MG/4 ML VIAL IV SCH (08:30)
[2025-01-21 09:40] LABS: Hepatitis C Virus Antibody Non-Reactive (Non-Reactive)
[2025-01-21 10:34] LABS: Immunoglobulin A 423 mg/dL (70-400)
[2025-01-21 15:26] LABS: Partial Thromboplastin Time 32.8 sec (20.0-37.0); Prothrombin Time 13.8 sec (11.9-14.5)
[2025-01-21] MEDS: hydrALAZINE 20 MG/ML VIAL IV PRN (15:40)
[2025-01-21] MEDS: LIDOCAINE 2% URO-JET 10 ML JEL.PF.APP UR SCH (16:46)
[2025-01-21] MEDS: traMADol 50 MG TABLET PO SCH (17:33)
[2025-01-21] MEDS: HYDROmorphone 1 MG/ML SYRINGE IV SCH (17:37)
[2025-01-21 18:29] LABS: Albumin 2.5 gm/dL (3.2-5.2); Blood Urea Nitrogen 54 mg/dL (6-20); Calcium 8.1 mg/dL (8.6-10.4); Carbon Dioxide 27 mmol/L (22-30); Chloride 102 mmol/L (96-108); Glomerular Filtration Rate 51; Glucose 156 mg/dL (70-105); Phosphorous 3.9 mg/dL (2.5-4.5); Potassium 4.5 mmol/L (3.3-5.1); Sodium 139 mmol/L (133-145)
[2025-01-21] MEDS: LABETALOL HCL 20 MG/4 ML VIAL IV PRN (20:00)
[2025-01-22 06:13] LABS: Basophils # (Auto) 0.03 K/mcL (0.00-0.30); Basophils % (Auto) 0.3 % (0.0-2.0); Hematocrit 29.2 % (40.1-51.0); Hemoglobin 8.7 g/dL (13.7-17.5); Lymphocytes # (Auto) 2.19 K/mcL (1.50-4.80); Lymphocytes % (Auto) 21.4 % (15.5-49.0); Mean Cell Volume 85.6 fL (80.0-100.0); Mean Corpuscular HGB Conc 29.8 g/dL (31.0-36.0); Mean Platelet Volume 8.9 fL (8.8-12.5); Monocytes % (Auto) 10.7 % (1.0-12.0); Neutrophils % (Auto) 65.2 % (38.0-78.0); Platelet Count 419 K/mcL (140-440); RBC 3.41 M/mcL (4.63-6.08); Red Cell Distribution Width 17.3 % (11.5-14.5); WBC 10.2 K/mcL (4.5-11.0)
[2025-01-22 06:49] LABS: Albumin 2.5 gm/dL (3.2-5.2); C-Reactive Protein 7.65 mg/dL (0.03-0.80); Phosphorous 4.5 mg/dL (2.5-4.5); Potassium 4.5 mmol/L (3.3-5.1)
[2025-01-22] MEDS: fentaNYL 100 MCG/2 ML VIAL IV ONE (08:30)
[2025-01-22] MEDS: MIDAZOLAM 2 MG/2 ML VIAL IV ONE (08:30)
[2025-01-22] MEDS ORDERED: LIDOCAINE 1% 20 ML VIAL SQ ONE (09:16)
[2025-01-22] MEDS: SENNOSIDES 1 TABLET PO SCH (10:48)
[2025-01-22] MEDS: POLYETHYLENE GLYCOL 3350 17 GM PACKET PO SCH (10:55)
[2025-01-22 16:08] LABS: Complement C3C 157 mg/dL (82-167); Complement C4C 22 mg/dL (12-38); SM Antibody <0.2 AI (0.0-0.9)
[2025-01-22] MEDS: CAPTOPRIL 12.5 MG TABLET PO SCH (21:18)
[2025-01-22] MEDS: BUMETANIDE 1 MG TABLET PO SCH (21:19)
[2025-01-23 06:42] LABS: Basophils # (Auto) 0.04 K/mcL (0.00-0.30); Basophils % (Auto) 0.4 % (0.0-2.0); Eosinophils # (Auto) 0.24 K/mcL (0.00-0.70); Eosinophils % (Auto) 2.1 % (0.0-7.0); Hematocrit 28.2 % (40.1-51.0); Hemoglobin 8.5 g/dL (13.7-17.5); Lymphocytes # (Auto) 2.58 K/mcL (1.50-4.80); Lymphocytes % (Auto) 22.9 % (15.5-49.0); Mean Cell Volume 84.9 fL (80.0-100.0); Mean Corpuscular HGB Conc 30.1 g/dL (31.0-36.0); Mean Platelet Volume 8.9 fL (8.8-12.5); Monocytes # (Auto) 1.22 K/mcL (0.10-0.90); Monocytes % (Auto) 10.8 % (1.0-12.0); Neutrophils % (Auto) 63.2 % (38.0-78.0); Platelet Count 424 K/mcL (140-440); RBC 3.32 M/mcL (4.63-6.08); Red Cell Distribution Width 17.1 % (11.5-14.5); WBC 11.3 K/mcL (4.5-11.0)
[2025-01-23 06:59] LABS: C-Reactive Protein 7.38 mg/dL (0.03-0.80)
[2025-01-23 07:16] LABS: Albumin 2.6 gm/dL (3.2-5.2); Blood Urea Nitrogen 52 mg/dL (6-20); Carbon Dioxide 29 mmol/L (22-30); Chloride 99 mmol/L (96-108); Glomerular Filtration Rate 47; Glucose 115 mg/dL (70-105); Sodium 138 mmol/L (133-145)
[2025-01-23] MEDS: PREGABALIN 75 MG CAPSULE PO SCH (08:11)
[2025-01-23] MEDS: DULoxetine 30 MG CAPSULE PO SCH (08:11)
[2025-01-23] MEDS ORDERED: POLYETHYLENE GLYCOL 3350 17 GM PACKET PO PRN (08:28)
[2025-01-23] MEDS: CAPTOPRIL 12.5 MG TABLET PO SCH (15:26)
[2025-01-23] MEDS: DILTIAZEM 30 MG TABLET PO SCH (15:26)
[2025-01-23 17:16] LABS: Sars-cov2 IGG Nucleocapsid, QL POSITIVE
[2025-01-23 17:35] LABS: Albumin PEP 2.28 gm/dL (3.10-4.70); Albumin/Globulin Ratio PEP 0.6 RATIO (0.9-1.7); Alpha-2-Globulins 1.15 gm/dL (0.40-1.20); Beta Globulins 1.13 gm/dL (0.60-1.20); Gamma Globulins 1.04 gm/dL (0.50-1.70); Globulin PEP 3.8 gm/dL (2.4-3.6); Total Protein PEP 6.1 gm/dL (5.9-8.4)
[2025-01-24 05:17] VITALS: TEMP 97.8
[2025-01-24 07:05] LABS: C-Reactive Protein 8.39 mg/dL (0.03-0.80)
[2025-01-24 07:06] LABS: Albumin 2.7 gm/dL (3.2-5.2); Blood Urea Nitrogen 53 mg/dL (6-20); Calcium 9.3 mg/dL (8.6-10.4); Carbon Dioxide 31 mmol/L (22-30); Chloride 99 mmol/L (96-108); Glomerular Filtration Rate 47; Glucose 142 mg/dL (70-105); Phosphorous 4.4 mg/dL (2.5-4.5); Potassium 4.7 mmol/L (3.3-5.1); Sodium 140 mmol/L (133-145)
[2025-01-24 13:20] VITALS: O2SAT 98
[2025-01-24 23:16] LABS: Myeloperoxidase ABS <1.0 AI (<1.0); Proteinase-3-AB <1.0 AI (<1.0)
[2025-01-25 08:36] LABS: C3, Serum 160 mg/dL (82-185); C4, Serum 23 mg/dL (15-53)
== END 2025-01-24 11:50 | disposition left against medical advice (07) | DRG 698 ==
LOC: ED 16:00 → ICU 22:54
PROVIDERS: ADMIT Internal Medicine; ATTEND Student in an Organized Health Care Education/Training Program

== ENCOUNTER 2025-02-10 01:03 | Inpatient (IN) ==
[2025-02-10] MEDS: FUROSEMIDE 40 MG/4 ML VIAL IV ONE (01:43)
[2025-02-10 01:55] LABS: Basophils # (Auto) 0.01 K/mcL (0.00-0.30); Basophils % (Auto) 0.1 % (0.0-2.0); Eosinophils # (Auto) 0.13 K/mcL (0.00-0.70); Eosinophils % (Auto) 1.3 % (0.0-7.0); Hematocrit 26.8 % (40.1-51.0); Hemoglobin 7.9 g/dL (13.7-17.5); Lymphocytes # (Auto) 1.69 K/mcL (1.50-4.80); Lymphocytes % (Auto) 16.3 % (15.5-49.0); Mean Cell Volume 86.7 fL (80.0-100.0); Mean Corpuscular HGB Conc 29.5 g/dL (31.0-36.0); Mean Platelet Volume 8.6 fL (8.8-12.5); Monocytes # (Auto) 1.06 K/mcL (0.10-0.90); Monocytes % (Auto) 10.2 % (1.0-12.0); Neutrophils % (Auto) 71.8 % (38.0-78.0); Platelet Count 450 K/mcL (140-440); RBC 3.09 M/mcL (4.63-6.08); Red Cell Distribution Width 18.3 % (11.5-14.5); WBC 10.4 K/mcL (4.5-11.0)
[2025-02-10 02:17] LABS: Creatine Kinase 378 U/L (24-195)
[2025-02-10 02:18] LABS: ALT/SGPT 51 U/L (<40); AST/SGOT 21 U/L (<40); Albumin 2.9 gm/dL (3.2-5.2); Albumin/Globulin Ratio 0.8 (1.0-2.3); Alkaline Phosphatase 112 U/L (39-117); Bilirubin,Total < 0.2 mg/dL (0.1-1.0); Blood Urea Nitrogen 56 mg/dL (6-20); Carbon Dioxide 20 mmol/L (22-30); Chloride 105 mmol/L (96-108); Globulin 3.7 gm/dL (2.2-3.7); Glomerular Filtration Rate 34; Glucose 152 mg/dL (70-105); Potassium 4.6 mmol/L (3.3-5.1); Sodium 138 mmol/L (133-145)
[2025-02-10] MEDS: fentaNYL 100 MCG/2 ML VIAL IV ONE (03:12)
[2025-02-10] MEDS ORDERED: ONDANSETRON 4 MG/2 ML VIAL IV PRN ×2 (03:37→11:08)
[2025-02-10] MEDS: VANCOMYCIN 1,000 MG in 0.9 % SODIUM CHLORIDE 250 ML IV ONE (03:49)
[2025-02-10] MEDS: PIPERACILLIN SODIUM/TAZOBACTAM 3.375 GM in DEXTROSE 5% IN WATER 50 ML IV ONE (05:12)
[2025-02-10] MEDS: fentaNYL 100 MCG/2 ML VIAL IV PRN (07:41)
[2025-02-10 09:40] LABS: Appearance,Urine Slightly Cloudy (Clear); Bilirubin,Urine Negative (Negative); Color,Urine Yellow; Glucose,Urine (UA) 250 mg/dL (Negative); Ketones,Urine Negative (Negative); Leukocyte Esterase,Urine Small /uL (Negative); Nitrate,Urine Negative (Negative); PH,Urine 5.5 (5.0-9.0); Protein,Urine >=300 mg/dL (Negative); Specific Gravity,Urine >= 1.030 (1.000-1.035); Urine Blood Large ery/mcL (Negative); Urine RBC 13 /hpf (0-3); Urine Squamous Epithelial Cell 1 /hpf (0-4); Urine WBC 37 /hpf (0-4); Urobilinogen,Urine Normal
[2025-02-10] MEDS ORDERED: DEXTROSE 31 GM ORAL.SUSP PO PRN (11:13)
[2025-02-10] MEDS ORDERED: DEXTROSE 50% 50 ML VIAL IV PRN (11:13)
[2025-02-10] MEDS ORDERED: ACETAMINOPHEN 325 MG TABLET PO PRN (11:13)
[2025-02-10] MEDS ORDERED: VANCOMYCIN PER PHARMACY IV SCH (12:00)
[2025-02-10] MEDS: VANCOMYCIN 1,500 MG in 0.9 % SODIUM CHLORIDE 500 ML IV ONE (12:28)
[2025-02-10 12:30] LABS: Phosphorous 6.1 mg/dL (2.5-4.5)
[2025-02-10 12:33] LABS: Thyroid Stimulating Hormone 3.68 uIU/mL (0.27-5.01)
[2025-02-10 13:48] LABS: Ferritin 53.3 ng/mL (30.0-400.0)
[2025-02-10 14:17] LABS: Estimated Average Glucose(eAG) 194 mg/dL; Hemoglobin A1C 8.4 % Hgb (4.0-6.0)
[2025-02-10] MEDS: 0.9 % SODIUM CHLORIDE 10 ML SYRINGE IV SCH (14:21)
[2025-02-10] MEDS: INSULIN LISPRO 1 UNIT/0.01 ML UNIT SQ SCH (14:21)
[2025-02-10] MEDS: PIPERACILLIN SODIUM/TAZOBACTAM 4.5 GM in DEXTROSE 5% IN WATER 100 ML IV SCH (14:22)
[2025-02-10] MEDS: IPRATROPIUM/ALBUTEROL 3 ML AMPUL.NEB NEB SCH (16:20)
[2025-02-10] MEDS: VANCOMYCIN 2,000 MG in 0.9 % SODIUM CHLORIDE 500 ML IV SCH ×2 (19:18→21:15)
[2025-02-10] MEDS: DOCUSATE SODIUM 100 MG CAPSULE PO SCH (20:50)
[2025-02-10] MEDS: SENNOSIDES 1 TABLET PO SCH (20:50)
[2025-02-10] MEDS: HEPARIN 5,000 UNIT/ML VIAL SQ SCH (20:51)
[2025-02-10] MEDS: FUROSEMIDE 40 MG/4 ML VIAL IV SCH (20:51)
[2025-02-10] MEDS: INSULIN GLARGINE, HUMAN 1 UNIT/0.01 ML SQ SCH (21:10)
[2025-02-10] MEDS: LORazepam 2 MG/ML VIAL IV ONE (23:01)
[2025-02-11] MEDS: LORazepam 2 MG/ML VIAL ONE ×2 (00:09→00:11)
[2025-02-11] MEDS: LORazepam 2 MG/ML VIAL IV ONE (00:11)
[2025-02-11] MEDS: HALOPERIDOL LACTATE 5 MG/ML VIAL IV ONE (00:48)
[2025-02-11] MEDS: HALOPERIDOL LACTATE 5 MG/ML VIAL ONE (01:18)
[2025-02-11 03:46] LABS: Hematocrit 27.1 % (40.1-51.0); Hemoglobin 7.8 g/dL (13.7-17.5); Mean Cell Volume 87.1 fL (80.0-100.0); Mean Corpuscular HGB Conc 28.8 g/dL (31.0-36.0); Mean Platelet Volume 8.8 fL (8.8-12.5); Platelet Count 463 K/mcL (140-440); RBC 3.11 M/mcL (4.63-6.08); Red Cell Distribution Width 18.4 % (11.5-14.5); WBC 11.1 K/mcL (4.5-11.0)
[2025-02-11 03:56] LABS: ALT/SGPT 49 U/L (<40); AST/SGOT 22 U/L (<40); Albumin/Globulin Ratio 0.8 (1.0-2.3); Alkaline Phosphatase 110 U/L (39-117); Bilirubin,Total 0.2 mg/dL (0.1-1.0); Blood Urea Nitrogen 56 mg/dL (6-20); Calcium 8.2 mg/dL (8.6-10.4); Carbon Dioxide 20 mmol/L (22-30); Chloride 103 mmol/L (96-108); Globulin 3.9 gm/dL (2.2-3.7); Glomerular Filtration Rate 32; Glucose 153 mg/dL (70-105); Sodium 137 mmol/L (133-145)
[2025-02-11] MEDS: PANTOPRAZOLE 40 MG TABLET PO SCH (08:05)
[2025-02-11 08:17] LABS: Anisocytosis 2+ (None Seen); Band Neutrophils % 1 % (0-10); Hypochromasia 1+ (None Seen); Lymphocytes % 7 % (15-49); Monocytes % (Manual) 4 % (1-12); Platelet Estimate INCREASED (Normal); RBC Morphology ABNORMAL (Normal); Reactive Lymphocytes 3 % (0-2); Segmented Neutrophils % 85 % (38-78)
[2025-02-11] MEDS: hydrALAZINE 20 MG/ML VIAL IV SCH (10:31)
[2025-02-11] MEDS: DILTIAZEM 30 MG TABLET PO SCH (14:03)
[2025-02-11] MEDS: busPIRone 5 MG TABLET PO SCH (20:47)
[2025-02-11] MEDS: PREGABALIN 75 MG CAPSULE PO SCH (20:48)
[2025-02-12 06:51] LABS: ALT/SGPT 38 U/L (<40); AST/SGOT 16 U/L (<40); Albumin 2.8 gm/dL (3.2-5.2); Albumin/Globulin Ratio 0.7 (1.0-2.3); Alkaline Phosphatase 99 U/L (39-117); Bilirubin,Direct < 0.2 mg/dL (0-0.3); Bilirubin,Total < 0.2 mg/dL (0.1-1.0); Blood Urea Nitrogen 53 mg/dL (6-20); Calcium 8.1 mg/dL (8.6-10.4); Carbon Dioxide 21 mmol/L (22-30); Chloride 108 mmol/L (96-108); Globulin 3.8 gm/dL (2.2-3.7); Glomerular Filtration Rate 34; Glucose 133 mg/dL (70-105); Lactate Dehydrogenase 215 U/L (135-225); Phosphorous 4.9 mg/dL (2.5-4.5); Potassium 4.5 mmol/L (3.3-5.1); Sodium 140 mmol/L (133-145); Triglycerides 108 mg/dL (<150); Uric Acid 7.9 mg/dL (2.5-8.0)
[2025-02-12 07:07] LABS: Basophils # (Auto) 0.05 K/mcL (0.00-0.30); Basophils % (Auto) 0.5 % (0.0-2.0); Eosinophils # (Auto) 0.18 K/mcL (0.00-0.70); Eosinophils % (Auto) 1.9 % (0.0-7.0); Hematocrit 28.5 % (40.1-51.0); Hemoglobin 8.2 g/dL (13.7-17.5); Lymphocytes # (Auto) 1.25 K/mcL (1.50-4.80); Lymphocytes % (Auto) 13.2 % (15.5-49.0); Mean Cell Volume 86.1 fL (80.0-100.0); Mean Corpuscular HGB Conc 28.8 g/dL (31.0-36.0); Mean Platelet Volume 8.9 fL (8.8-12.5); Monocytes # (Auto) 0.93 K/mcL (0.10-0.90); Monocytes % (Auto) 9.9 % (1.0-12.0); Neutrophils % (Auto) 74.1 % (38.0-78.0); Platelet Count 505 K/mcL (140-440); RBC 3.31 M/mcL (4.63-6.08); Red Cell Distribution Width 18.4 % (11.5-14.5); WBC 9.4 K/mcL (4.5-11.0)
[2025-02-12] MEDS: DULoxetine 30 MG CAPSULE PO SCH (08:07)
[2025-02-12] MEDS: ALBUMIN HUMAN 12.5 GM/50 ML VIAL IV SCH ×2 (09:53→20:31)
[2025-02-12] MEDS: ENALAPRILAT 1.25 MG/ML VIAL IV PRN (10:00)
[2025-02-12 11:03] LABS: Amphetamine Screen,Urine Suspect positive; Barbiturate Screen,Urine None detected; Benzodiazepines Screen,Urine None detected; Cannabinoid Screen,Urine None detected; Cocaine Screen,Urine None detected; Fentanyl, Urine Screen Suspect Positive; Opiate Screen,Urine None detected; Oxycodone, Urine Screen None detected; Phencyclidine Screen,Urine None detected
[2025-02-12] MEDS: PHENAZOPYRIDINE 200 MG TABLET PO ONE (22:34)
[2025-02-12] MEDS: LIDOCAINE 2% URO-JET 10 ML JEL.PF.APP UR ONE (22:35)
[2025-02-13 06:30] LABS: ALT/SGPT 28 U/L (<40); AST/SGOT 15 U/L (<40); Albumin 2.9 gm/dL (3.2-5.2); Albumin/Globulin Ratio 0.8 (1.0-2.3); Alkaline Phosphatase 80 U/L (39-117); Bilirubin,Direct < 0.2 mg/dL (0-0.3); Bilirubin,Total < 0.2 mg/dL (0.1-1.0); Blood Urea Nitrogen 49 mg/dL (6-20); Calcium 8.3 mg/dL (8.6-10.4); Carbon Dioxide 23 mmol/L (22-30); Chloride 107 mmol/L (96-108); Globulin 3.5 gm/dL (2.2-3.7); Glomerular Filtration Rate 41; Glucose 84 mg/dL (70-105); Lactate Dehydrogenase 224 U/L (135-225); Phosphorous 3.6 mg/dL (2.5-4.5); Potassium 4.2 mmol/L (3.3-5.1); Sodium 139 mmol/L (133-145); Triglycerides 120 mg/dL (<150); Uric Acid 7.3 mg/dL (2.5-8.0)
[2025-02-13 07:10] LABS: Vancomycin,Random 27.2 ug/mL
[2025-02-13] MEDS: ALBUMIN HUMAN 12.5 GM/50 ML VIAL IV ONE (08:26)
[2025-02-13] MEDS: DILTIAZEM 30 MG TABLET PO SCH (14:14)
[2025-02-14 06:04] LABS: Blood Urea Nitrogen 51 mg/dL (6-20); Calcium 8.4 mg/dL (8.6-10.4); Carbon Dioxide 25 mmol/L (22-30); Chloride 106 mmol/L (96-108); Glomerular Filtration Rate 47; Glucose 101 mg/dL (70-105); Potassium 4.4 mmol/L (3.3-5.1); Sodium 140 mmol/L (133-145)
[2025-02-14 07:13] LABS: Vancomycin,Random 18.8 ug/mL
[2025-02-14] MEDS: hydrALAZINE 20 MG/ML VIAL IV PRN (08:17)
[2025-02-14] MEDS: ALBUMIN HUMAN 12.5 GM/50 ML VIAL IV SCH (08:18)
[2025-02-14 11:35] VITALS: TEMP 97.9; O2SAT 95
[2025-02-17 22:07] LABS: Amphetamine Screen Positive
== END 2025-02-14 12:35 | DRG 602 ==
LOC: ED 01:03 → MEDSUR 05:49
PROVIDERS: ADMIT Internal Medicine Critical Care Medicine; ATTEND Internal Medicine